=== PATIENT | female | born 1995 | race Caucasian/White ===

== ENCOUNTER 2017-12-04 14:47 | Emergency (ER) | payer SELFPAY ==
[2017-12-04] MEDS ORDERED: NA CHLORIDE 0.9% 1,000 ML ONE (15:28)
[2017-12-04 15:55] LABS: Urine Blood 2+ (NEG); Urine Glucose NEGATIVE (NEG); Urine Protein NEGATIVE (NEG); Urine pH 5.5 (5.0-7.0)
[2017-12-04 16:24] LABS: Absolute Monocytes 0.6 K/uL (0.1-1.3); Absolute Neutrophil 7.5 K/uL (1.8-8.0); Basophils % 0.5 % (0-1.3); Eosinophils % 1.8 % (0-4.4); Hematocrit 40.1 % (36.0-45.0); Lymphocytes % 19.3 % (15.3-44.8); MCH 31.6 pg (27.0-35.0); MPV 9.6 fL (7.6-11.3); Monocytes % 5.7 % (3.3-12.3); RBC Red Blood Cell Count 4.36 M/uL (3.86-4.86)
[2017-12-04 16:32] LABS: Albumin 3.4 g/dL (3.4-5.0); Bilirubin Direct 0.2 mg/dL (0-0.2); Potassium 3.5 mmol/L (3.5-5.1); Protein, Total 7.3 g/dL (6.4-8.2)
[2017-12-04] MEDS ORDERED: MORPHINE 4 MG/ML SYR ONE (17:02)
[2017-12-04 17:03] LABS: Urine Bacteria 20-50 /HPF (<20)
[2017-12-04] MEDS ORDERED: ONDANSETRON 4 MG/2 ML VIAL ONE (17:03)
[2017-12-04 17:04] LABS: Urine Culture Reflex Order NOT NEEDED; Urine Mucus LIGHT /HPF (NONE SEEN)
--- NOTE | 2017-12-04 17:54 | RAD REPORT ---
EXAM DESCRIPTION: CT - Abdomen Pelvis W Contrast - 12/04/2017 5:34 pm CLINICAL HISTORY: Abdominal pain. Nausea, vomiting and diarrhea COMPARISON: 2016 TECHNIQUE: Computed axial tomography of the abdomen and pelvis was obtained. 100 cc Isovue-300 is ad ministered intravenously. Oral contrast was given. All CT scans are performed using dose optimization technique as appropriate and may include automated exposure control or mA/KV adjustment according to patient size. FINDINGS: The liver, spleen, pancreas, adrenals and kidneys appear unremarkable. Postsurgical changes involve the stomach The appendix is normal caliber. There is no evidence of diverticulitis Gallstones are suspected. The gallbladder is mildly distended. The wall of the descending colon and transverse colon is mildly to moderately thickened IMPRESSION: [id number] colitis Cholelithiasis. Mild gallbladder distention
[2017-12-04] MEDS ORDERED: metroNIDAZOLE 500 MG TABLET ONE (18:38)
[2017-12-04] MEDS ORDERED: CIPROFLOXACIN HCL 500 MG TAB ONE (18:38)
--- NOTE | 2017-12-04 18:57 | ER ---
Nurse's Notes [facility] Name: Ximena Zheng Age: 22 yrs Sex: Female : 1995 Arrival Date: 12/04/2017 Time: 14:50 Bed 27 Private MD: Diagnosis: Colitis Presentation: 12/04 14:58 Presenting complaint: Patient states: intermittent lower abd pain, nausea, vomiting x aa5 1, and diarrhea that began this morning. Transition of care: patient was not received from another setting of care. Onset of symptoms was December 04, 2017. Risk Assessment: Do you want to hurt yourself or someone else? Patient reports no desire to harm self or others. Initial Sepsis Screen: Does the patient meet any 2 criteria? No. Patient's initial sepsis screen is negative. Does the patient have a suspected source of infection? No. Patient's initial sepsis screen is negative. Care prior to arrival: None. 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 - Social history:: Smoking status: Patient uses tobacco products, smokes one-half pack cigarettes per day. - Ebola Screening: : No symptoms or risks identified at this time. Screenin:19 Abuse screen: Denies threats or abuse. Denies injuries from another. Nutritional rv screening: No deficits noted. Tuberculosis screening: No symptoms or risk factors identified. Fall Risk None identified. Assessment: 15:17 General: Appears in no apparent distress. comfortable, Behavior is calm, cooperative. rv Pain: Complains of pain in abdomen. Neuro: Level of Consciousness is awake, alert, obeys commands, Oriented to person, place, time, situation. Cardiovascular: Capillary refill < 3 seconds. Respiratory: Airway is patent. GI: Bowel sounds hyperactive in right upper quadrant, left upper quadrant, right lower quadrant and left lower quadrant Abd is soft and non tender X 4 quads. : No signs and/or symptoms were reported regarding the genitourinary system. EENT: No signs and/or symptoms were reported regarding the EENT system. Derm: Skin is intact. 17:10 Reassessment: No changes from previously documented assessment. Patient and/or family rv updated on plan of care and expected duration. Pain level reassessed. Patient is alert, oriented x 3, equal unlabored respirations, skin warm/dry/pink. 18:05 Reassessment: Patient appears in no apparent distress at this time. Patient and/or rv family updated on plan of care and expected duration. Pain level reassessed. Patient is alert, oriented x 3, equal unlabored respirations, skin warm/dry/pink. Vital Signs: 15:01 BP 145 / 95; Pulse 99; Resp 18 S; Temp 98.2(TE); Pulse Ox 96% on R/A; Weight 116.12 kg aa5 (R); Height 5 ft. 5 in. (165.10 cm) (R); Pain 5/10; 15:20 BP 112 / 72; Pulse 98; Pulse Ox 100% on R/A; rv 18:05 BP 109 / 70; Pulse 71; Pulse Ox 99% on R/A; rv 18:56 BP 112 / 79; Pulse 77; Pulse Ox 100% on R/A; rv 15:01 Body Mass Index 42.60 (116.12 kg, 165.10 cm) aa5 ED Course: 14:50 Patient arrived in ED. as 14:59 Triage completed. aa5 14:59 Arm band placed on. aa5 15:05 Darron Mcintosh PA is PHCP. [facility] 15:05 Travis Avendaño MD is Attending Physician. [facility] 15:17 Inserted saline lock: 22 gauge in left antecubital area, using aseptic technique. Blood rv collected. Missed attempt(s): 20 gauge in right antecubital area. 15:20 Patient has correct armband on for positive identification. Bed in low position. Call rv light in reach. Side rails up X 1. Adult w/ patient. Pulse ox on. NIBP on. 15:44 Initial lab(s) drawn, by me, sent to lab. Urine collected: clean catch specimen, clear. rv 17:34 CT Abd/Pelvis - W/Contrast In Process Unspecified. EDMS 17:35 CT completed. Patient tolerated procedure well. Patient moved back from CT. jg6 18:06 Awaiting radiology results. rv 18:56 Ash Navarro MD is Referral Physician. jmm 19:10 No provider procedures requiring assistance completed. IV discontinued, bleeding rv controlled, No redness/swelling at site. Pressure dressing applied. Administered Medications: 17:01 Drug: morphine 4 mg Route: IVP; Site: left antecubital; rv 18:06 Follow up: Response: Pain is decreased rv 17:01 Drug: Zofran 4 mg Route: IVP; Site: left antecubital; rv 18:06 Follow up: Response: No adverse reaction rv 18:34 Drug: Cipro 500 mg Route: PO; rv 18:34 Drug: Flagyl 500 mg Route: PO; rv Outcome: 18:57 Discharge ordered by MD. jmm 19:10 Discharged to home ambulatory. rv 19:10 Condition: improved 19:10 Discharge instructions given to patient, Instructed on discharge instructions, follow up and referral plans. medication usage, Demonstrated understanding of instructions, follow-up care, medications, Prescriptions given X 5 19:11 Patient left the ED. rv Signatures: Dispatcher [employer] EDMS Darron Mcintosh PA PA jmm Martinez, Amelia as Calderon, Audri, RN RN aa5 Bebeto Bui, RN RN Heaven Moss6
--- NOTE | 2017-12-04 18:58 | EDPHYS ---
Physician Documentation [facility] Name: Ximena Zheng Age: 22 yrs Sex: Female : 1995 Arrival Date: 12/04/2017 Time: 14:50 Bed 27 Private MD: ED Physician Travis Avendaño HPI: 12/04 15:32 This 22 yrs old Female presents to ER via Ambulatory with complaints of jmm Abdominal Pain, Diarrhea, Nausea. 15:32 The patient presents with abdominal pain in the lower abdomen. Onset: The jmm symptoms/episode began/occurred gradually, 2 day(s) ago. The symptoms do not radiate. Associated signs and symptoms: Pertinent positives: nausea and vomiting, diarrhea. The symptoms are described as achy. This is a 22 year old female with a surgical history of gastric sleeve 2 years prior that presents to the ED with lower abdominal pain, diarrhea beginning evening. States having one episode of vomiting today. Denies epigastric pain. . 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 - Social history:: Smoking status: Patient uses tobacco products, smokes one-half pack cigarettes per day. - Ebola Screening: : No symptoms or risks identified at this time. ROS: 15:32 Constitutional: Negative for fever, chills, and weight loss, Cardiovascular: Negative jmm for chest pain, palpitations, and edema, Respiratory: Negative for shortness of breath, cough, wheezing, and pleuritic chest pain. 15:32 Back: Negative for injury and pain, MS/Extremity: Negative for injury and deformity, Skin: Negative for injury, rash, and discoloration, Neuro: Negative for headache, weakness, numbness, tingling, and seizure. 15:32 Abdomen/GI: Positive for abdominal pain, nausea and vomiting, diarrhea. 15:32 All other systems are negative. Exam: 15:32 Head/Face: atraumatic. Chest/axilla: Normal chest wall appearance and motion. jmm Cardiovascular: Regular rate and rhythm. No edema appreciated Respiratory: Normal respirations, no respiratory distress appreciated 15:32 Constitutional: The patient appears in no acute distress, alert, awake. 15:32 Abdomen/GI: Inspection: obese Bowel sounds: normal, Palpation: soft, mild abdominal tenderness, in the right lower quadrant and left lower quadrant. 15:32 Back: ROM is normal. 15:32 Musculoskeletal/extremity: ROM: intact in all extremities. 15:32 Skin: Appearance: Color: normal in color. 15:32 Neuro: Orientation: is normal, Mentation: is normal, Memory: is normal. Vital Signs: 15:01 BP 145 / 95; Pulse 99; Resp 18 S; Temp 98.2(TE); Pulse Ox 96% on R/A; Weight 116.12 kg aa5 (R); Height 5 ft. 5 in. (165.10 cm) (R); Pain 5/10; 15:20 BP 112 / 72; Pulse 98; Pulse Ox 100% on R/A; rv 18:05 BP 109 / 70; Pulse 71; Pulse Ox 99% on R/A; rv 18:56 BP 112 / 79; Pulse 77; Pulse Ox 100% on R/A; rv 15:01 Body Mass Index 42.60 (116.12 kg, 165.10 cm) aa5 MDM: 15:32 Patient medically screened. [facility] 18:56 Data reviewed: vital signs, nurses notes. Counseling: I had a detailed discussion with robyn the patient and/or guardian regarding: the historical points, exam findings, and any diagnostic results supporting the discharge/admit diagnosis, the need for outpatient follow up, to return to the emergency department if symptoms worsen or persist or if there are any questions or concerns that arise at home. 18:56 Data reviewed: lab test result(s), radiologic studies. [facility] 18:56 ED course: Patient is alert and non toxic in appearance in the ED. Abdominal pain [facility] relieved in the ED. patient is able to tolerate PO. Symptoms appear most likely due to colitis. Patient has no epigastric pain. I do not currently suspect cholecystitis. Patient prescribed oral antibiotics along with the need to follow up with GI for further evaluation. Patient given strict return precautions. Patient understood and agrees with the plan of care. . 12/04 15:34 Order name: Basic Metabolic Panel; Complete Time: 16:45 [facility] 12/04 15:34 Order name: CBC with Diff; Complete Time: 16:45 [facility] 12/04 15:34 Order name: Creatinine for Radiology; Complete Time: 16:45 [facility] 12/04 15:34 Order name: Hepatic Function; Complete Time: 16:45 [facility] 12/04 15:34 Order name: Lipase; Complete Time: 16:45 [facility] 12/04 15:40 Order name: Urine Microscopic Only; Complete Time: 17:08 12/04 15:34 Order name: IV Saline Lock; Complete Time: 15:44 [facility] 12/04 15:35 Order name: CT Abd/Pelvis - W/Contrast; Complete Time: 17:59 [facility] 12/04 15:43 Order name: Urine Dipstick--Ancillary (enter results); Complete Time: 16:45 12/04 15:43 Order name: Urine --Ancillary (enter results); Complete Time: 16:45 12/04 15:34 Order name: Labs collected and sent; Complete Time: 15:44 [facility] 12/04 15:34 Order name: Urine Test (obtain specimen); Complete Time: 15:44 [facility] 12/04 15:34 Order name: Urine Dipstick-Ancillary (obtain specimen); Complete Time: 15:44 [facility] Administered Medications: 17:01 Drug: morphine 4 mg Route: IVP; Site: left antecubital; rv 18:06 Follow up: Response: Pain is decreased rv 17:01 Drug: Zofran 4 mg Route: IVP; Site: left antecubital; rv 18:06 Follow up: Response: No adverse reaction rv 18:34 Drug: Cipro 500 mg Route: PO; rv 18:34 Drug: Flagyl 500 mg Route: PO; rv Disposition: 12/04/17 18:57 Discharged to Home. Impression: Colitis. - Condition is Stable. - Discharge Instructions: Colitis. - Prescriptions for Zofran ODT 4 mg Oral tablet,disintegrating - place 1 tablet by TRANSLINGUAL route every 4-6 hours; 20 tablet. Bentyl 20 mg Oral Tablet - take 2 tablet by ORAL route every 6 hours As needed; 40 tablet. Flagyl 500 mg Oral Tablet - take 1 tablet by ORAL route every 8 hours for 10 days; 30 tablet. Tylenol- Codeine #3 300-30 mg Oral Tablet - take 1 tablet by ORAL route every 6 hours As needed; 20 tablet. Cipro 500 mg Oral Tablet - take 1 tablet by ORAL route every 12 hours for 10 days; 20 tablet. - Medication Reconciliation Form, Thank You Letter, Antibiotic Education, Prescription Opioid Use, Work release form form. - Follow up: Ash Navarro MD; When: 2 - 3 days; Reason: Recheck today's complaints, Continuance of care, Re-evaluation by your physician. Addendum: 12/07/2017 20:39 Co-signature as Attending Physician, Travis Avendaño MD. r n Signatures: Dispatcher [employer] EDMS Darron Mcintosh PA PA jmm Nieto, Roman, MD MD rn Adelia Ramos RN RN aa5 Bebeto Bui RN RN rv Corrections: (The following items were deleted from the chart) 12/04 19:11 18:57 12/04/2017 18:57 Discharged to Home. Impression: Colitis. Condition is Stable. rv Forms are Medication Reconciliation Form, Thank You Letter, Antibiotic Education, Prescription Opioid Use. Follow up: Ash Navarro; When: 2 - 3 days; Reason: Recheck today's complaints, Continuance of care, Re-evaluation by your physician. [facility]
[2017-12-04 19:15] VITALS: TEMP 98.2
[2017-12-04 19:18] VITALS: BP 112/79; O2SAT 100
== END 2017-12-04 19:11 | disposition home or self-care (01) ==
LOC: ER 14:47
DX: K52.9 Noninfective gastroenteritis and colitis, unspecified (principal); F17.210 Nicotine dependence, cigarettes, uncomplicated
CPT/HCPCS: 36415; 74177; 80048; 80076; 81003; 81015; 81025; 83690; 85025; 96374; 96375; 99284; J2405; J7030; Q9967

== ENCOUNTER 2020-08-07 10:53 | Emergency (ER) | payer OTHER, SELFPAY ==
--- OUTSIDE RECORDS SUMMARY | 2020-08-07 10:56 | XMS REPORT | Continuity of Care Document ---
:1995 Author Organization [facility] t Address [address] [place] [address] Care Team Providers Name Role Phone Johann FLANNERY Attending Clinician Mariah Mitchell Attending Clinician Problems This patient has no known problems. Allergies, Adverse Reactions, Alerts This patient has no known allergies or adverse reactions. Medications This patient has no known medications. Procedures This patient has no known procedures. 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
[2020-08-07] MEDS ORDERED: dexAMETHasone 10 MG/ML VIAL ONE (12:03)
[2020-08-07] MEDS ORDERED: LEVALBUTEROL 1.25 MG/3 ML NEB ONE (12:03)
--- NOTE | 2020-08-07 12:29 | RAD REPORT ---
EXAM DESCRIPTION: RAD - Chest Single View - 08/07/2020 12:05 pm CLINICAL HISTORY: SOB COMPARISON: Portable July 2016 TECHNIQUE: AP portable chest image was obtained 08/07/2020 12:05 pm . FINDINGS: Exam is limited due to low lung volumes. No peripheral mass or consolidations seen. Large body habitus accentuates all chest findings. Cardiac silhouette is prominent due to the exam limitations. Upper lobe vasculature within normal li mits. Significant failure or volume overload are not suspected. No measurable pleural effusion and no pneumothorax. No acute bony abnormality seen. No acute aortic findings suspected. IMPRESSION: Exam is limited but no acute cardiopulmonary process confirmed.
--- NOTE | 2020-08-07 13:31 | ER ---
Nurse's Notes [facility] Name: Ximena Zheng Age: 24 yrs Sex: Female : 1995 Arrival Date: 08/07/2020 Time: 10:58 Bed 20 Private MD: Diagnosis: Acute pharyngitis;Acute upper respiratory infection, unspecified Presentation: 08/07 11:03 Chief complaint: Patient states: Nasal congestion, chest congestion, cough and SOB jl7 since . Went to [facility] on Wednesday and negative for COVID and strep, gave my a steroid shot and pain shot and a prescription for a cough pill but I'm not any better. Had a gastric bypass done in [place] 6 weeks ago. Coronavirus screen: Client indicates they have traveled out of the [place] in the last 14 days. Client traveled to: [place] Ebola Screen: No symptoms or risks identified at this time. Initial Sepsis Screen: Does the patient meet any 2 criteria? No. Patient's initial sepsis screen is negative. Does the patient have a suspected source of infection? No. Patient's initial sepsis screen is negative. Risk Assessment: Do you want to hurt yourself or someone else? Patient reports no desire to harm self or others. Onset of symptoms was August 01, 2020. 11:03 Method Of Arrival: Ambulatory jl7 11:03 Acuity: PEDRO 4 jl7 Triage Assessment: 11:08 General: Appears in no apparent distress. uncomfortable, Behavior is calm, cooperative. jl7 Pain: Complains of pain in [place] Pain currently is 8 out of 10 on a pain scale. Respiratory: Reports shortness of breath cough that is Onset: The symptoms/episode began/occurred gradually, the patient has mild shortness of breath. 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 - Social history:: Smoking status: Reported history of juuling and/or vaping. Screenin:08 Abuse screen: Denies threats or abuse. Nutritional screening: No deficits noted. jd3 Tuberculosis screening: No symptoms or risk factors identified. Fall Risk Ambulatory Aid- None/Bed Rest/Nurse Assist (0 pts). Gait- Normal/Bed Rest/Wheelchair (0 pts) Mental Status- Oriented to own ability (0 pts). Total Espinoza Fall Scale indicates No Risk (0-24 pts). Assessment: 12:07 General: Appears in no apparent distress. comfortable, Behavior is calm, cooperative, jd3 appropriate for age. Pain: Complains of pain in throat Quality of pain is described as aching. Neuro: Level of Consciousness is awake, alert, obeys commands, Oriented to person, place, time, situation. Cardiovascular: Denies chest pain, Capillary refill < 3 seconds Patient's skin is warm and dry. Respiratory: Reports cough that is non-productive, hacking, persistent Airway is patent Respiratory effort is even, unlabored, Respiratory pattern is regular, symmetrical. GI: No signs and/or symptoms were reported involving the gastrointestinal system. : No signs and/or symptoms were reported regarding the genitourinary system. EENT: Reports nasal congestion. Derm: Skin is intact, Skin is dry, Skin is normal, Skin temperature is warm. Musculoskeletal: Circulation, motion, and sensation intact. Range of motion: intact in all extremities. 12:47 Reassessment: Patient appears in no apparent distress at this time. Patient and/or jd3 family updated on plan of care and expected duration. Pain level reassessed. Patient is alert, oriented x 3, equal unlabored respirations, skin warm/dry/pink. Vital Signs: 11:03 BP 148 / 103; Pulse 74; Resp 19; Temp 98.2(O); Pulse Ox 99% on R/A; Weight 150.14 kg; jl7 Height 5 ft. 5 in. (165.10 cm); Pain 8/10; 13:45 Pulse 73; Resp 18 S; Temp 97.3(TE); Pulse Ox 99% on R/A; jd3 11:03 Body Mass Index 55.08 (150.14 kg, 165.10 cm) 7 ED Course: 10:58 Patient arrived in ED. mr 11:01 Darron Mcintosh PA is PHCP. [facility] 11:01 Travis Avendaño MD is Attending Physician. [facility] 11:07 Triage completed. [facility] 11:08 Arm band placed on right wrist. 7 11:12 Benjamin Hampton, RN is Primary Nurse. jd3 12:04 Chest Single View XRAY In Process Unspecified. EDMS 12:08 Patient has correct armband on for positive identification. Bed in low position. Call jd3 light in reach. Side rails up X 1. Adult w/ patient. Pulse ox on. NIBP on. 13:45 No provider procedures requiring assistance completed. Patient did not have IV access jd3 during this emergency room visit. Administered Medications: 12:06 Drug: Decadron (dexamethasone) 10 mg Route: IM; Site: left deltoid; jd3 13:00 Follow up: Response: No adverse reaction jd3 12:07 Drug: Xopenex (levalbuterol) (3) 1.25 mg Route: Inhalation; jd3 13:00 Follow up: Response: No adverse reaction jd3 Outcome: 13:30 Discharge ordered by . robyn 13:45 Discharged to home ambulatory, with family. jd3 13:45 Condition: stable 13:45 Discharge instructions given to patient, Instructed on discharge instructions, follow up and referral plans. medication usage, Demonstrated understanding of instructions, follow-up care, medications, Prescriptions given X 3. 13:47 Patient left the ED. jd3 Signatures: Dispatcher [employer] EDMS Darron Mcintosh PA PA jmm Rivera, Mary SmithSaira, RN RN jl7 Benjamin Hampton, RN RN jd3
--- NOTE | 2020-08-07 13:31 | EDPHYS ---
Physician Documentation [facility] Name: Ximena Zheng Age: 24 yrs Sex: Female : 1995 Arrival Date: 08/07/2020 Time: 10:58 Bed 20 Private MD: ED Physician Travis Avendaño HPI: 08/07 13:24 This 24 yrs old Female presents to ER via Ambulatory with complaints of jmm Breathing Difficulty, Cough. 13:24 The patient has shortness of breath at rest. Onset: The symptoms/episode began/occurred jmm gradually, 6 day(s) ago. Duration: The symptoms are continuous, and are steadily getting worse. The patient's shortness of breath has no apparent modifying factors. This is a 24 year old female with a history of gestational htn that presents to the ED with complaints of sore throat, cough, shortness of breath beginning this past . Patient was evaluated this past Wednesday with little relief of symptoms. . [employer] REPA[employer]ER: 11:08 LMP 07/30/2020 jl7 Historical: - Allergies: 11:08 No Known Allergies; jl7 - Home Meds: 11:08 None [Active]; jl7 - PMHx: 11:08 gestational hypertension; jl7 - PSHx: 11:08 Gastric Bypass; jl7 - Immunization history:: Adult Immunizations unknown. - Social history:: Smoking status: Reported history of juuling and/or vaping. ROS: 13:24 Cardiovascular: Negative for chest pain, palpitations, and edema. jmm 13:24 Constitutional: Positive for chills. 13:24 Respiratory: Positive for cough, shortness of breath. 13:24 All other systems are negative. Exam: 13:24 Constitutional: This is a well developed, well nourished patient who is awake, alert, jmm and in no acute distress. Head/Face: atraumatic. Eyes: EOMI, no conjunctival erythema appreciated 13:24 ENT: Moist Mucus Membranes Neck: Trachea midline, Supple Chest/axilla: Normal chest wall appearance and motion. Cardiovascular: Regular rate and rhythm. No edema appreciated Respiratory: Normal respirations, no respiratory distress appreciated Abdomen/GI: Non distended, soft Back: Normal ROM Skin: General appearance color normal MS/ Extremity: Moves all extremities, no obvious deformities appreciated, no edema noted to the lower extremities Neuro: Awake and alert, normal gait Psych: Behavior is normal, Mood is normal, Patient is cooperative and pleasant 13:24 ENT: Posterior pharynx: erythema, that is moderate. Vital Signs: 11:03 BP 148 / 103; Pulse 74; Resp 19; Temp 98.2(O); Pulse Ox 99% on R/A; Weight 150.14 kg; jl7 Height 5 ft. 5 in. (165.10 cm); Pain 8/10; 13:45 Pulse 73; Resp 18 S; Temp 97.3(TE); Pulse Ox 99% on R/A; jd3 11:03 Body Mass Index 55.08 (150.14 kg, 165.10 cm) jl7 MDM: 11:33 Patient medically screened. [facility] 13:28 Data reviewed: vital signs, nurses notes. Counseling: I had a detailed discussion with robyn the patient and/or guardian regarding: the historical points, exam findings, and any diagnostic results supporting the discharge/admit diagnosis, lab results, radiology results, the need for outpatient follow up, to return to the emergency department if symptoms worsen or persist or if there are any questions or concerns that arise at home. ED course: Patient is alert and non toxic in appearance in the ED. No signs of resp distress. Advised to follow up with pcp and otherwise given strict return precautions. patient understood and agrees with the plan of care. . 08/07 11:35 Order name: Strep; Complete Time: 12:38 [facility] 08/07 11:35 Order name: Chest Single View XRAY; Complete Time: 12:32 [facility] 08/07 12:37 Order name: Throat Culture [facility] 08/07 13:16 Order name: SARS-COV-2 RT PCR; Complete Time: 13:16 EDTX Administered Medications: 12:06 Drug: Decadron (dexamethasone) 10 mg Route: IM; Site: left deltoid; jd3 13:00 Follow up: Response: No adverse reaction jd3 12:07 Drug: Xopenex (levalbuterol) (3) 1.25 mg Route: Inhalation; jd3 13:00 Follow up: Response: No adverse reaction jd3 Disposition: 13:52 Co-signature as Attending Physician, Travis Avendaño MD. rn Disposition: 08/07/20 13:30 Discharged to Home. Impression: Acute pharyngitis, Acute upper respiratory infection, unspecified. - Condition is Stable. - Discharge Instructions: Pharyngitis, Upper Respiratory Infection, Adult. - Prescriptions for cefdinir 300 mg Oral capsule - take 1 capsule by ORAL route every 12 hours for 10 days; 20 capsule. Albuterol Sulfate 90 mcg/actuation - inhale 1-2 puff by INHALATION route every 4-6 hours; 1 Inhaler. promethazine- DM - take 1 Teaspoon by ORAL route every 4 hours; 120 milliliter. - Medication Reconciliation Form, Thank You Letter, Antibiotic Education, Prescription Opioid Use, Work release form form. - Follow up: Private Physician; When: 2 - 3 days; Reason: Recheck today's complaints, Continuance of care, Re-evaluation by your physician. Signatures: Dispatcher [employer] [facility] Darron Mcintosh PA PA jmm Nieto, Roman, MD MD rn Leal, Jahala, RN RN jl7 Benjamin Hampton RN RN jd3 Corrections: (The following items were deleted from the chart) 12:16 11:37 CORONAVIRUS+[id number].BRZ ordered. [facility] 13:47 13:30 08/07/2020 13:30 Discharged to Home. Impression: Acute pharyngitis; Acute upper jd3 respiratory infection, unspecified. Condition is Stable. Forms are Medication Reconciliation Form, Thank You Letter, Antibiotic Education, Prescription Opioid Use. Follow up: Private Physician; When: 2 - 3 days; Reason: Recheck today's complaints, Continuance of care, Re-evaluation by your physician. robyn
[2020-08-07 13:55] VITALS: BP 148/103; O2SAT 99
[2020-08-07 14:01] VITALS: TEMP 97.3
== END 2020-08-07 13:47 | disposition home or self-care (01) ==
LOC: ER 10:53
DX: J06.9 Acute upper respiratory infection, unspecified (principal); Z20.822 Contact with and (suspected) exposure to COVID-19; Z98.84 Bariatric surgery status
CPT/HCPCS: 87070; 87081; 71045; U0003; J1100; 96372; 99284

== ENCOUNTER 2022-02-19 09:16 | Emergency (ER) | payer OTHER ==
--- OUTSIDE RECORDS SUMMARY | 2022-02-19 09:22 | XMS REPORT | Continuity of Care Document ---
:1995 Author Organization [facility] t Address [address] [place] [address] Care Team Providers Name Role Phone PCP, PATIENT DOES NOT HAVE A Primary Care Physician UnavailANNETTA Eaton Attending Clinician Unavailable Rebecca Curiel MD Attending Clinician REBECCA CURIEL Attending Clinician Unavailable George Monreal MD Attending Clinician GEORGE MONREAL Attending Clinician Unavailable Only, Adc Test Attending Clinician Unavailable Pob, Adc Lab Main Attending Clinician Unavailable MELQUIADES CHAUDHRY Attending Clinician Unavailable MELQUIADES CHAUDHRY Attending Clinician Unavailable Doctor Unassigned, [place] Attending Clinician Unavailable Ultrasound, Ang-Mfm Attending Clinician Unavailable Mark Anthony Padron MD Attending Clinician [phone] MARK ANTHONY PADRON Attending Clinician Unavailable Ultrasound, Adc Mfm Attending Clinician Unavailable Evin Woods DO Attending Clinician Pcp, Patient Does Not Have A Attending Clinician [phone] Poornima LEIGH Attending Clinician Unavailable Poornima Crabtree Attending Clinician ELSY GARCIA Attending Clinician Unavailable Elsy Garcia DO Attending Clinician LYNN SULTANA Attending Clinician Unavailable Janet Madrigal Attending Clinician AkinEsther Sweet Attending Clinician [phone] ISIDRA RASMUSSEN Attending Clinician Unavailable TRACEY ZUÑIGA Attending Clinician Unavailable GEORGE MONREAL Admitting Clinician Unavailable George Monreal MD Admitting Clinician REBECCA CURIEL Admitting Clinician Unavailable ELSY GARCIA Admitting Clinician Unavailable Payers Payer Name Policy Type Policy Number Effective Date Expiration Date Sanjuana NEVES II [id number] 2020 00:00:00 [place]ICAID OF [place] [id number] 2021 00:00:00 [facility] [id number] 2021 2021 00:00:00 00:00:00 Problems Condition Condition Condition Status Onset Resolution Last Treating Co mments Source Name Details Category Date Date Treatment Clinician Date Liveborn Liveborn Disease Active Unive rs , of infant, of 7-13 it y of mann [place] , , 00 [place] dical born in born in [facility] by vaginal by vaginal delivery delivery 38 weeks 38 weeks Disease Active Unive rs gestation gestation 7-11 ity of of of 00:00: [place] 00 [facility] Supervisio Supervisio Disease Active 2020-03 U darrell n of high n of high 2-02 ity of risk risk 00:00: [place] 00 [facility] in third in third Branch trimester trimester Chronic Chronic Disease Active 2020-03 Univers hypertensi hypertensi 2-02 it y of on on 00:00: [place] affecting affecting 00 [facility] Bran ch Bariatric Bariatric Disease Active 2020-03 Uni vers surgery surgery 2-02 ity of status status 00:00: [place] complicati complicati 00 Me dical ng ng Lydia , , third third trimester trimester Obesity in Obesity in Disease Active 2020-03 U nivers 2-02 ity of 00:00: [place] 00 Medical Branch Trichomona Trichomona Disease Active Overview : Univers l l 3-21 Formattin ity of vulvovagin vulvovagin 00:00: g of this [place] itis itis 00 note Medical might be Branch different from the original. Noted on pap Morbid Morbid Disease Active Univers obesity obesity 6-24 ity of with body with body 00:00: [place] mass index mass index 00 Me dical (BMI) of (BMI) of Branch 40.0 or 40.0 or higher higher Hypertensi Hypertensi Disease Active Overview : Univers on on Formattin ity of g of this [place] note Medical might be Branch different from the original. during and after gastric sleeve surgery Allergies, Adverse Reactions, Alerts Allergy Allergy Status Severity Reaction(s) Onset Inactive Treating Comm ents Source Name Type Date Date Clinician NO KNOWN Drug Active Univers ALLERGIE Class ity of [facility] Social History Social Habit Start Date Stop Date Quantity Comments Source ASSERTION 2020-12-26 University of 00:00:00 [facility] Branch History of 2015-05-13 Cigarette Smoker Universi ty of tobacco use 00:00:00 [place] [facility] History SDAL University o f Alcohol Frequency [place] M edical [facility] History [facility] University o f Alcohol Std [place] Medical Drinks Branch History [facility] o f Alcohol Binge [place] Medic al Branch Exposure to 2021-10-19 2021-10-29 Not sure [facility] SARS-CoV-2 00:00:00 15:54:00 [facility] (event) Branch Tobacco use and 2021-10-29 2021-10-29 Smokeless tobacco Un iversity of exposure 00:00:00 00:00:[address] [facility] Alcohol intake 2021-10-29 2021-10-29 Ex-drinker University of 00:00:00 00:00:00 (finding) [facility] Tobacco Comment 2021-10-29 2021-10-29 smokes 6 x per Unive rsity of 00:00:00 00:00:00 day [facility] Branch Education 2021-09-09 2021-09-09 13 University of 00:00:00 00:00:00 [facility] Alcohol Comment 2015-08-22 2015-08-22 socially Universit y of 00:00:00 00:00:00 [facility] Sex Assigned At [birth year] Universit y of 00:00:00 00:00:00 [facility] Smoking Status Start Date Stop Date Source Ex-smoker 2021-10-29 00:00:00 2021-10-29 00:00:00 [facility] Medical Branch Medications Ordered Filled Start Stop Current Ordering Indication Dosage Frequency Signature Comments Components Source Medication Medication Date Date Medication? Clinician (SIG) Name Name amLODIPine Yes [id number] 5mg Take 1 U nivers 5 mg tablet 8-03 tablet by ity of 00:00: mouth in [place] the Medical morning. Branch amLODIPine Yes [id number] 5mg Take 1 U nivers 5 mg tablet 8-03 tablet by ity of 00:00: mouth in [place] the Medical morning. Branch amLODIPine Yes [id number] 5mg Take 1 U nivers 5 mg tablet 8-03 tablet by ity of 00:00: mouth in [place] the Medical morning. Branch ferrous 2021- No Take by Simmrer s sulfate 09-10 mouth. ity of (IRON ORAL) 08:10: 00:00 [place] 58 :00 Medical Branch CALCIUM 2021- No Take by Simmrer s ORAL 09-10 mouth. ity of 08:10: 00:00 [place] 58 :00 Medical Branch aspirin 81 2021- No 81mg Take 81 mg Univers mg EC 09-10 by mouth ity of tablet 08:10: 00:00 daily. [place] 58 :00 Medical Branch Yes [id number] 1{tbl} Take 1 Univers vitamin 7-13 102 tablet by ity of w/FA tablet 00:00: mouth in [facility] the Medical morning. Branch docusate Yes [id number] 200mg Take 2 Univers 100 mg - 102 capsules ity of capsule 00:00: by mouth [place] [id number] once daily Medical as needed Branch for Constipati on. ferrous Yes [id number] 325mg Take 1 Univers sulfate 325 7- 102 tablet by ity of mg (65 mg 00:00: mouth in [facility] s iron) 00 the Medical tablet morning Branch and 1 tablet in the evening. ibuprofen Yes [id number] 600mg Take 1 Univers 600 mg 7-13 102 tablet by ity of tablet 00:00: mouth [place] 00 every 6 Medical (six) Branch hours as needed (Pain). Take with food or milk. 0 Yes [id number] 1{tbl} Take 1 Univers vitamin 7-13 102 tablet by ity of w/FA tablet 00:00: mouth in [place] 00 the Medical morning. Branch docusate Yes [id number] 200mg Take 2 Univers 100 mg 7-13 102 capsules ity of capsule 00:00: by mouth [place] 00 once daily Medical as needed Branch for Constipati on. ferrous Yes [id number] 325mg Take 1 Univers sulfate 325 7-13 102 tablet by ity of mg (65 mg 00:00: [place] iron[place] 00 the Medical tablet morning Branch and 1 tablet in the evening. ibuprofen Yes [id number] 600mg Take 1 Univers 600 mg 7-13 102 tablet by ity of tablet 00:00: mouth [place] 00 every 6 Medical (six) Branch hours as needed (Pain). Take with food or milk. Yes [id number] 1{tbl} Take 1 Univers vitamin 7-13 102 tablet by ity of w/FA tablet 00:00: mouth in [place] 00 the Medical morning. Branch docusate Yes [id number] 200mg Take 2 Univers 100 mg 7-13 102 capsules ity of capsule 00:00: by mouth [place] 00 once daily Medical as needed Branch for Constipati on. ferrous 0 Yes [id number] 325mg Take 1 Univers sulfate 325 7-13 102 tablet by ity of mg (65 mg 00:00: [place] iron[place] 00 the Medical tablet morning Branch and 1 tablet in the evening. ibuprofen 0 Yes [id number] 600mg Take 1 Univers 600 mg 7-13 102 tablet by ity of tablet 00:00: mouth [place] 00 every 6 Medical (six) Branch hours as needed (Pain). Take with food or milk. 0 Yes [id number] 1{tbl} Take 1 Univers vitamin 7-13 102 tablet by ity of w/FA tablet 00:00: mouth in [place] 00 the Medical morning. Branch docusate Yes [id number] 200mg Take 2 Univers 100 mg 7-13 102 capsules ity of capsule 00:00: by mouth [place] 00 once daily Medical as needed Branch for Constipati on. ferrous Yes [id number] 325mg Take 1 Univers sulfate 325 7- 102 tablet by ity of mg (65 mg 00:00: [place] iron[place] 00 the Medical tablet morning Branch and 1 tablet in the evening. ibuprofen Yes [id number] 600mg Take 1 Univers 600 mg 7- 102 tablet by ity of tablet 00:00: mouth [place] 00 every 6 Medical (six) Branch hours as needed (Pain). Take with food or milk. Yes [id number] 1{tbl} Take 1 Univers vitamin 7-13 102 tablet by ity of w/FA tablet 00:00: mouth in [place] 00 the Medical morning. Branch ferrous Yes [id number] 325mg Take 1 Univers sulfate 325 7-13 102 tablet by ity of mg (65 mg 00:00: [place] iron[place] 00 the Medical tablet morning Branch and 1 tablet in the evening. docusate 2021- No [id number] 200mg Take 2 Univers 100 mg 09-10 102 capsules ity of capsule 00:00: 00:00 by mouth [place] 00 :00 once daily Medical as needed Branch for Constipati on. ibuprofen 2021- No [id number] 600mg Take 1 Univers 600 mg 09-10 102 tablet by ity of tablet 00:00: 00:00 mouth [place] 00 :00 every 6 Medical (six) Branch hours as needed (Pain). Take with food or milk. rho(D) Yes 300ug 300 mcg, Univer s immune 7-12 Intramuscu ity of globulin 18:00: lar, ONCE, [place] as (RHOGAM) 47 For 1 Medical syringe 300 dose, Branch mcg Conditiona l, Routine witch [place] Yes Topical, Un eddi (TUCKS) 50 7-12 Q4HPRN, ity of % topical 18:00: [place] pad 39 on Tue Medical 09/09/21 at Branch 1300, Until Discontinu ed, Routine, rectal/hem orrhoidal pain HYDROcodone Yes 1{tbl} 1 tablet, Univers -acetaminop 7-12 Oral, ity of hen (NORCO 18:00: Q6HPRN, [place] 5) 5-325 mg 39 Starting Medi delma tablet 1 on Wed tablet 09/09/21 at 1300, Until Discontinu ed, Routine, Pain (scale 7-10) ibuprofen 2022-0 Yes 600mg 600 mg, Univ ers (IBU) 09-09 Oral, ity of tablet 600 18:00: Q6HPRN, [place] mg 39 Starting Medical on Wed09/09/21 at 1300, Until Discontinu ed, Routine, Pain (scale 4-6) acetaminoph 2022-0 Yes 650mg 650 mg, Un eddi en 09-09 Oral, ity of (TYLENOL) 18:00: Q6HPRN, [place] tablet 650 39 Starting Medic al mg on Wed09/09/21 at 1300, Until Discontinu ed, Routine, Pain (scale 1-3) diphenhydrA 2021-0 Yes 25mg 25 mg, Univ ers MINE 09-09 Oral, ity of (BENADRYL) 18:00: [facility] Starting Medica l mg on Wed09/09/21 at 1300, Until Discontinu ed, Routine, Sleep, Itching ondansetron 2021-0 Yes 4mg 4 mg, Slow Univers (ZOFRAN 09-09 IV Push, ity of (PF)) 18:00: Q8HPRN, [place] injection 4 39 Starting Medi delma mg on Wed09/09/21 at 1300, Until Discontinu ed, Routine, Nausea and Vomiting (N/V) simethicone 202-0 Yes 160mg 160 mg, Un eddi (GAS RELIEF 09-09 Oral, ity of (SIMETHICON 18:00: PC+HSPRN, [place] E)) 39 Starting Medical chewable on Wed tablet 160 09/09/21 at mg 1300, Until Discontinu ed, Routine, Gas docusate 202-0 Yes 200mg 200 mg, Unive rs (COLACE) 09-09 Oral, ity of capsule 200 18:00: QDAILYPRN, [place] mg 39 Starting Medical on Wed09/09/21 at 1300, Until Discontinu ed, Routine, Constipati on magnesium 2021-0 Yes 30mL 30 mL, Univer s hydroxide 09-09 Oral, ity of (MILK OF 18:00: QDAILYPRN, [place] MAGNESIA) 39 Starting Medica l 400 mg/5 mL on Wed Branch suspension 09/09/21 at 30 mL 1300, Until Discontinu ed, Routine, Constipati on benzocaine- Yes Topical, Un eddi menthol 09-09 PRN, ity of (DERMOPLAST 18:00: [place] 20-0.5 % 39 on Wed Medical topical 09/09/21 at Branch spray 1300, Until Discontinu ed, Routine, Perineum discomfort butalbital- 2021- No 1{tbl} 1 tablet, Univers acetaminoph 09-09 Oral, ity of en-caff 11:54: 18:00 Q4HPRN, [place] (ESGIC) 01 :45 Starting Medical 50-325-40 on Wed mg tablet 1 09/09/21 at tablet 0654, Until Wed09/09/21 at 1300, Routine, headache D5W-LR IV 2021- No 1000mL at 125 Uni vers infusion 09-09 mL/hr, IV ity o f 1,000 mL 09:45: 18:00 Infusion, [place] 00 :45 CONTINUOUS Medical , Starting Branch on Wed09/09/21 at 0445, Until Wed09/09/21 at 1300, Routine lactated 2021- No 500mL at 999 Unive rs ringers IV 09-09 mL/hr, 500 it y of infusion 09:45: 15:47 mL, IV [place] 500 mL 00 :00 Infusion, Medical ONCE, 1 Branch dose, On Wed09/09/21 at 0445, Routine FENTanyl PF 2021- No 100ug 100 mcg, Univers (SUBLIMAZE 09-09 Slow IV ity o f (PF)) 09:31: 18:00 Push, [place] injection 43 :45 Q1HPRN, Medical 100 mcg Starting Branch on Wed09/09/21 at 0431, Until Wed09/09/21 at 1300, Routine, contractio n pain without an epidural and SVE < 8 cm and Cat I strip proMETHazin 2021- No 25mg 25 mg, IV Univers e 09-0912 Piggyback, ity of (PHENERGAN) 09:31: 18:00 Q4HPRN, [place] 25 mg in 43 :45 Starting Medical NaCl 0.9% on Wed Branch (NS) 50 mL 09/09/21 at IV 0431, piggyback Until Wed09/09/21 at 1300, Routine, Nausea and Vomiting (N/V) oxytocin 2021- No 2mU/min at 2-40 Un eddi (PITOCIN) 09-0912 mL/hr, IV ity of 30 units in 09:31: 18:00 Infusion, [place] NS 500 mL 43 :45 TITRATE, Medica l IV infusion Starting Bran ch on Wed09/09/21 at 0431, Until Wed09/09/21 at 1300, FABIO ferrous 0 Yes Take by Univers sulfate 5-24 mouth. ity of (IRON ORAL) 16:08: [address] CALCIUM 2021-0 Yes Take by Univers ORAL 5-24 mouth. ity of 16:08: [address] aspirin 81 2021-0 Yes 81mg Take 81 mg U nivers mg EC 5-24 by mouth ity of tablet 16:08: daily. [address] ferrous 2021-0 Yes Take by Univers sulfate 5-24 mouth. ity of (IRON ORAL) 16:08: [address] CALCIUM 2021-0 Yes Take by Univers ORAL 5-24 mouth. ity of 16:08: [address] aspirin 81 2021-0 Yes 81mg Take 81 mg U nivers mg EC 5-24 by mouth ity of tablet 16:08: daily. [address] ferrous 2021-0 Yes Take by Univers sulfate 5-24 mouth. ity of (IRON ORAL) 16:08: [address] CALCIUM 2021-0 Yes Take by Univers ORAL 5-24 mouth. ity of 16:08: [address] aspirin 81 2021-0 Yes 81mg Take 81 mg U nivers mg EC 5-24 by mouth ity of tablet 16:08: daily. [address] ferrous 2021-0 Yes Take by Univers sulfate 5-24 mouth. ity of (IRON ORAL) 16:08: [address] CALCIUM 2021-0 Yes Take by Univers ORAL 5-24 mouth. ity of 16:08: [address] aspirin 81 2021-0 Yes 81mg Take 81 mg U nivers mg EC 5-24 by mouth ity of tablet 16:08: daily. [address] ferrous 2021-0 Yes Take by Univers sulfate 5-24 mouth. ity of (IRON ORAL) 16:08: [address] CALCIUM 2021-0 Yes Take by Univers ORAL 5-24 mouth. ity of 16:08: [address] aspirin 81 2021-0 Yes 81mg Take 81 mg U nivers mg EC 5-24 by mouth ity of tablet 16:08: daily. [address] ferrous 2021-0 Yes Take by Univers sulfate 5-24 mouth. ity of (IRON ORAL) 16:08: [address] CALCIUM 2021-0 Yes Take by Univers ORAL 5-24 mouth. ity of 16:08: [address] aspirin 81 2021-0 Yes 81mg Take 81 mg U nivers mg EC 5-24 by mouth ity of tablet 16:08: daily. [address] ferrous 2021-0 Yes Take by Univers sulfate 5-24 mouth. ity of (IRON ORAL) 16:08: [address] CALCIUM 2021-0 Yes Take by Univers ORAL 5-24 mouth. ity of 16:08: [address] aspirin 81 2021-0 Yes 81mg Take 81 mg U nivers mg EC 5-24 by mouth ity of tablet 16:08: daily. [address] ferrous 2021-0 Yes Take by Univers sulfate 5-24 mouth. ity of (IRON ORAL) 16:08: [address] CALCIUM 2021-0 Yes Take by Univers ORAL 5-24 mouth. ity of 16:08: [address] aspirin 81 2021-0 Yes 81mg Take 81 mg U nivers mg EC 5-24 by mouth ity of tablet 16:08: daily. [address] metroNIDAZO 2021-0 Yes 500mg 500 mg, Un eddi LE (FLAGYL) 5-12 Oral, ity of tablet 500 18:15: Q12H, [place] mg 00 First dose Medical on [facility] Branch 07/10/21 at 1315, Until Discontinu ed, Routine
Reason for Anti-Infec tive: Documented Infection< br>Documen stefany Infection Site: Pelvic
Duration of Therapy: 7 days ferrous Yes Take by Univers sulfate 5-12 mouth. ity of (IRON ORAL) 13:45: [address] CALCIUM 0 Yes Take by Univers ORAL 5-12 mouth. ity of 13:45: [address] aspirin 81 0 Yes 81mg Take 81 mg U nivers mg EC 5-12 by mouth ity of tablet 13:45: daily. [address] proMETHazin Yes [id number] 25mg Take 1 Univers e 25 mg 5-12 tablet by ity of tablet 00:00: mouth [place] 00 every 6 Medical (six) Branch hours as needed for Nausea and Vomiting (N/V). proMETHazin 0 Yes [id number] 25mg Take 1 Univers e 25 mg 5-12 tablet by ity of tablet 00:00: mouth [place] 00 every 6 Medical (six) Branch hours as needed for Nausea and Vomiting (N/V). proMETHazin Yes [id number] 25mg Take 1 Univers e 25 mg 5-12 tablet by ity of tablet 00:00: mouth [place] 00 every 6 Medical (six) Branch hours as needed for Nausea and Vomiting (N/V). proMETHazin 0 Yes [id number] 25mg Take 1 Univers e 25 mg 5-12 tablet by ity of tablet 00:00: mouth [place] 00 every 6 Medical (six) Branch hours as needed for Nausea and Vomiting (N/V). proMETHazin 0 Yes [id number] 25mg Take 1 Univers e 25 mg 5-12 tablet by ity of tablet 00:00: mouth [place] 00 every 6 Medical (six) Branch hours as needed for Nausea and Vomiting (N/V). proMETHazin 0 Yes [id number] 25mg Take 1 Univers e 25 mg 5-12 tablet by ity of tablet 00:00: mouth [place] 00 every 6 Medical (six) Branch hours as needed for Nausea and Vomiting (N/V). proMETHazin 0 Yes [id number] 25mg Take 1 Univers e 25 mg 5-12 tablet by ity of tablet 00:00: mouth [place] 00 every 6 Medical (six) Branch hours as needed for Nausea and Vomiting (N/V). metroNIDAZO Yes [id number] 500mg Take 1 Univers LE 500 mg 5-12 tablet by ity o f tablet 00:00: mouth [place] 00 every 12 Medical (twelve) Branch hours. proMETHazin Yes [id number] 25mg Take 1 Univers e 25 mg 5-12 tablet by ity of tablet 00:00: mouth [place] 00 every 6 Medical (six) Branch hours as needed for Nausea and Vomiting (N/V). proMETHazin 2021- No [id number] 25mg Take 1 Univers e 25 mg 5-12 07-13 tablet by ity of tablet 00:00: 00:00 mouth [place] 00 :00 every 6 Medical (six) Branch hours as needed for Nausea and Vomiting (N/V). metroNIDAZO 2021- No [id number] 500mg Take 1 Univers LE 500 mg 5-12 05-24 tablet by ity of tablet 00:00: 00:00 mouth [place] 00 :00 every 12 Medical (twelve) Branch hours. ferrous Yes [id number] 325mg Take 1 Un eddi sulfate 325 5-06 tablet by ity of mg (65 mg 00:00: mouth [place] iron) 00 daily. Medical tablet Branch ferrous Yes [id number] 325mg Take 1 Un eddi sulfate 325 5-06 tablet by ity of mg (65 mg 00:00: mouth [place] iron) 00 daily. Medical tablet Branch ferrous Yes [id number] 325mg Take 1 Un eddi sulfate 325 5-06 tablet by ity of mg (65 mg 00:00: mouth [place] iron) 00 daily. Medical tablet Branch ferrous Yes [id number] 325mg Take 1 Un eddi sulfate 325 5-06 tablet by ity of mg (65 mg 00:00: mouth [place] iron) 00 daily. Medical tablet Branch ferrous Yes [id number] 325mg Take 1 Un eddi sulfate 325 5-06 tablet by ity of mg (65 mg 00:00: mouth [place] iron) 00 daily. Medical tablet Branch ferrous Yes [id number] 325mg Take 1 Un eddi sulfate 325 5-06 tablet by ity of mg (65 mg 00:00: mouth [place] iron) 00 daily. Medical tablet Branch ferrous Yes [id number] 325mg Take 1 Un eddi sulfate 325 5-06 tablet by ity of mg (65 mg 00:00: mouth [place] iron) 00 daily. Medical tablet Branch ferrous 0 Yes [id number] 325mg Take 1 Un eddi sulfate 325 5-06 tablet by ity of mg (65 mg 00:00: mouth [place] iron) 00 daily. Medical tablet Branch ferrous 0 Yes [id number] 325mg Take 1 Un eddi sulfate 325 5-06 tablet by ity of mg (65 mg 00:00: mouth [place] iron) 00 daily. Medical tablet Branch ferrous Yes [id number] 325mg Take 1 Un eddi sulfate 325 5-06 tablet by ity of mg (65 mg 00:00: mouth [place] iron) 00 daily. Medical tablet Branch ferrous Yes [id number] 325mg Take 1 Un eddi sulfate 325 5-06 tablet by ity of mg (65 mg 00:00: mouth [place] iron) 00 daily. Medical tablet Branch ferrous Yes [id number] 325mg Take 1 Un eddi sulfate 325 5-06 tablet by ity of mg (65 mg 00:00: mouth [place] iron) 00 daily. Medical tablet Branch ferrous 2021- No [id number] 325mg Take 1 U nivers sulfate 325 5-06 07-13 tablet by it y of mg (65 mg 00:00: 00:00 mouth [place] iron) 00 :00 daily. Medical tablet Branch Blood-Gluco Yes Use as Univ ers se Meter 4-22 directed ity of Kit 00:00: [place] 00 Medical Branch blood sugar Yes Use as Univ ers diagnostic 4-22 directed ity o f strip 00:00: [place] 00 Medical Branch Alcohol 0 Yes Apply to Univer s Swabs PadM 4-22 area(s) 4 ity of 00:00: (four) [place] 00 times Medical daily. Branch lancets 28 Yes Use as Unive rs gauge Misc 4-22 directed ity o f 00:00: [place] 00 Medical Branch Blood-Gluco 0 Yes Use as Univ ers se Meter 4-22 directed ity of Kit 00:00: [place] 00 Medical Branch blood sugar 0 Yes Use as Univ ers diagnostic 4-22 directed ity o f strip 00:00: [place] 00 Medical Branch Alcohol 2022-0 Yes Apply to Univer s Swabs PadM 4-22 area(s) 4 ity of 00:00: (four) [place] 00 times Medical daily. Branch lancets 28 2021-0 Yes Use as Unive rs gauge Misc 4-22 directed ity o f 00:00: [place] 00 Medical Branch Blood-Gluco 2021-0 Yes Use as Univ ers se Meter 4-22 directed ity of Kit 00:00: [place] Medical Branch blood sugar 2021-0 Yes Use as Univ ers diagnostic 4-22 directed ity o f strip 00:00: [place] 00 Medical Branch Alcohol 2021-0 Yes Apply to Univer s Swabs PadM 4-22 area(s) 4 ity of 00:00: (four) [place] 00 times Medical daily. Branch lancets 28 2021-0 Yes Use as Unive rs gauge Misc 4-22 directed ity o f 00:00: [place] Medical Branch Blood-Gluco 2021-0 Yes Use as Univ ers se Meter 4-22 directed ity of Kit 00:00: [place] 00 Medical Branch blood sugar 2021-0 Yes Use as Univ ers diagnostic 4-22 directed ity o f strip 00:00: [place] 00 Medical Branch Alcohol 2021-0 Yes Apply to Univer s Swabs PadM 4-22 area(s) 4 ity of 00:00: (four) [place] 00 times Medical daily. Branch lancets 28 2021-0 Yes Use as Unive rs gauge Misc 4-22 directed ity o f 00:00: [place] 00 Medical Branch Blood-Gluco 2021-0 Yes Use as Univ ers se Meter 4-22 directed ity of Kit 00:00: [place] 00 Medical Branch blood sugar 2021-0 Yes Use as Univ ers diagnostic 4-22 directed ity o f strip 00:00: [place] 00 Medical Branch Alcohol 2021-0 Yes Apply to Univer s Swabs PadM 4-22 area(s) 4 ity of 00:00: (four) [place] 00 times Medical daily. Branch lancets 28 2021-0 Yes Use as Unive rs gauge Misc 4-22 directed ity o f 00:00: [place] 00 Medical Branch Blood-Gluco 2021-0 Yes Use as Univ ers se Meter 4-22 directed ity of Kit 00:00: [place] 00 Medical Branch blood sugar 2021-0 Yes Use as Univ ers diagnostic 4-22 directed ity o f strip 00:00: [place] 00 Medical Branch Alcohol 2021-0 Yes Apply to Univer s Swabs PadM 4-22 area(s) 4 ity of 00:00: (four) [place] 00 times Medical daily. Branch lancets 28 2021-0 Yes Use as Unive rs gauge Misc 4-22 directed ity o f 00:00: [place] Medical Branch Blood-Gluco 2021-0 Yes Use as Univ ers se Meter 4-22 directed ity of Kit 00:00: [place] Medical Branch blood sugar 2021-0 Yes Use as Univ ers diagnostic 4-22 directed ity o f strip 00:00: [place] 00 Medical Branch Alcohol 2021-0 Yes Apply to Univer s Swabs PadM 4-22 area(s) 4 ity of 00:00: (four) [place] 00 times Medical daily. Branch lancets 28 0 Yes Use as Unive rs gauge Misc 4-22 directed ity o f 00:00: [place] Medical Branch ferrous 2021-0 Yes [id number] 325mg Take 1 Un eddi sulfate 325 4-22 tablet by ity of mg (65 mg 00:00: mouth [place] iron) 00 daily. Medical tablet Branch Blood-Gluco 0 Yes Use as Univ ers se Meter 4-22 directed ity of Kit 00:00: [place] Medical Branch blood sugar 2021-0 Yes Use as Univ ers diagnostic 4-22 directed ity o f strip 00:00: [place] 00 Medical Branch Alcohol 2021-0 Yes Apply to Univer s Swabs PadM 4-22 area(s) 4 ity of 00:00: (four) [place] 00 times Medical daily. Branch lancets 28 2021-0 Yes Use as Unive rs gauge Misc 4-22 directed ity o f 00:00: [place] Medical Branch Blood-Gluco 2021-0 Yes Use as Univ ers se Meter 4-22 directed ity of Kit 00:00: [place] 00 [facility] blood sugar 2021-0 Yes Use as Univ ers diagnostic 4-22 directed ity o f strip 00:00: [place] 00 [facility] Alcohol 2021-0 Yes Apply to Univer s Swabs PadM 4-22 area(s) 4 ity of 00:00: (four) [place] 00 times Medical daily. Branch lancets 28 2021-0 Yes Use as Unive rs gauge Misc 4-22 directed ity o f 00:00: [place] [facility] Blood-Gluco 2021-0 Yes Use as Univ ers se Meter 4-22 directed ity of Kit 00:00: [place] [facility] blood sugar 2021-0 Yes Use as Univ ers diagnostic 4-22 directed ity o f strip 00:00: [place] [facility] Alcohol 2021-0 Yes Apply to Univer s Swabs PadM 4-22 area(s) 4 ity of 00:00: (four) [place] 00 times Medical daily. Branch lancets 28 2021-0 Yes Use as Unive rs gauge Misc 4-22 directed ity o f 00:00: [place] [facility] Blood-Gluco 2021-0 Yes Use as Univ ers se Meter 4-22 directed ity of Kit 00:00: [place] [facility] blood sugar 2021-0 Yes Use as Univ ers diagnostic 4-22 directed ity o f strip 00:00: [place] [facility] Alcohol 2021-0 Yes Apply to Univer s Swabs PadM 4-22 area(s) 4 ity of 00:00: (four) [place] 00 times Medical daily. Branch lancets 28 0 Yes Use as Unive rs gauge Misc 4-22 directed ity o f 00:00: [place] [facility] Blood-Gluco 2021-0 Yes Use as Univ ers se Meter 4-22 directed ity of Kit 00:00: [place] [facility] blood sugar 2021-0 Yes Use as Univ ers diagnostic 4-22 directed ity o f strip 00:00: [place] [facility] Alcohol 2021-0 Yes Apply to Univer s Swabs PadM 4-22 area(s) 4 ity of 00:00: (four) [place] 00 times Medical daily. Branch lancets 28 2021-0 Yes Use as Unive rs gauge Misc 4-22 directed ity o f 00:00: [place] [facility] Blood-Gluco 2021-0 Yes Use as Univ ers se Meter 4-22 directed ity of Kit 00:00: [place] [facility] blood sugar 2021-0 Yes Use as Univ ers diagnostic 4-22 directed ity o f strip 00:00: [place] [facility] Alcohol 2021-0 Yes Apply to Univer s Swabs PadM 4-22 area(s) 4 ity of 00:00: (four) [place] 00 times Medical daily. Branch lancets Yes Use as Unive rs gauge Misc 06-20 directed ity o f 00:00: [place] 00 [facility] Blood-Gluco 2021- No Use as Uni vers se Meter 06-20 directed ity of Kit 00:00: 00:00 [place] 00 :00 Medical Branch blood sugar 2021- No Use as Uni vers diagnostic 06-20 directed ity of strip 00:00: 00:00 [place] 00 :00 Medical Branch Alcohol 2021- No Apply to Unive rs Swabs PadM 06-20 area(s) 4 ity of 00:00: 00:00 (four) [place] 00 :00 times Medical daily. Branch lancets 2021- No Use as Univ ers gauge Misc 06-20 directed ity of 00:00: 00:00 [place] 00 :00 Medical Branch ferrous 2021- No [id number] 325mg Take 1 U nivers sulfate 325 06-20 tablet by it y of mg (65 mg 00:00: 00:00 mouth [place] iron) 00 :00 daily. [facility] Branch CALCIUM Yes Take by Univers ORAL 3-02 mouth. ity of 15:33: [address] CALCIUM Yes Take by Univers ORAL 3-02 mouth. ity of 15:33: [place] [id number] Medical Lydia CALCIUM Yes Take by Univers ORAL 3-02 mouth. ity of 15:33: [place] [address] Medical Lydia CALCIUM 0 Yes Take by Univers ORAL 3-02 mouth. ity of 15:33: [place] [address] Medical Lydia CALCIUM 0 Yes Take by Univers ORAL 3-02 mouth. ity of 15:33: [address] aspirin 81 2021-0 Yes 81mg Take 81 mg U nivers mg EC 1-27 by mouth ity of tablet 17:14: daily. [place] [address] Medical Lydia aspirin 81 2021-0 Yes 81mg Take 81 mg U nivers mg EC 1-27 by mouth ity of tablet 17:14: daily. [address] aspirin 81 2021-0 Yes 81mg Take 81 mg U nivers mg EC 1-27 by mouth ity of tablet 17:14: daily. [address] aspirin 81 2-0 Yes 81mg Take 81 mg U nivers mg EC 1-27 by mouth ity of tablet 17:14: daily. [address] aspirin 81 2-0 Yes 81mg Take 81 mg U nivers mg EC 1-27 by mouth ity of tablet 17:14: daily. [address] Blood 2020-03 Yes Use as Univers Pressure 2-13 directed ity of Monitor Kit 00:00: [place] [facility] Blood 2020-1 Yes Use as Univers Pressure 2-13 directed ity of Monitor Kit 00:00: [place] [facility] Blood 2020-03 Yes Use as Univers Pressure 2-13 directed ity of Monitor Kit 00:00: [place] [facility] Blood 2020- Yes Use as Univers Pressure 2-13 directed ity of Monitor Kit 00:00: [place] [facility] Blood 2020- Yes Use as Univers Pressure 2-13 directed ity of Monitor Kit 00:00: [place] [facility] Blood 2020- Yes Use as Univers Pressure 2-13 directed ity of Monitor Kit 00:00: [place] [facility] Blood 2020- Yes Use as Univers Pressure 2-13 directed ity of Monitor Kit 00:00: [place] [facility] Blood 2020-1 Yes Use as Univers Pressure 2-13 directed ity of Monitor Kit 00:00: [place] [facility] Blood 2020- Yes Use as Univers Pressure 2-13 directed ity of Monitor Kit 00:00: [place] [facility] Blood 2020-1 Yes Use as Univers Pressure 2-13 directed ity of Monitor Kit 00:00: [place] [facility] Blood 2020-1 Yes Use as Univers Pressure 2-13 directed ity of Monitor Kit 00:00: [place] [facility] Blood 2020-1 Yes Use as Univers Pressure 2-13 directed ity of Monitor Kit 00:00: [place] [facility] Blood 2020-1 Yes Use as Univers Pressure 2-13 directed ity of Monitor Kit 00:00: [place] [facility] Blood 2020-1 Yes Use as Univers Pressure 2-13 directed ity of Monitor Kit 00:00: [place] [facility] Blood 2020-2- No Use as Univers Pressure 2-13 07-13 directed ity of Monitor Kit 00:00: 00:00 [place] 00 :00 Medical Branch ferrous 2020-03 Yes Take by Univers sulfate 2-06 mouth. ity of (IRON ORAL) 13:46: [address] ferrous 2020-03 Yes Take by Univers sulfate 2-06 mouth. ity of (IRON ORAL) 13:46: [address] ferrous 2020-03 Yes Take by Univers sulfate 2-06 mouth. ity of (IRON ORAL) 13:46: [address] ferrous 2020-03 Yes Take by Univers sulfate 2-06 mouth. ity of (IRON ORAL) 13:46: [address] ferrous 2020-03 Yes Take by Univers sulfate 2-06 mouth. ity of (IRON ORAL) 13:46: [address] 2020-03 Yes Take 1 Univers Cmb#21-Iron 2-02 TAB-CAP/M2 it y of -Folic Acid 00:00: by mouth [place] 14 mg iron- 00 daily. Medica l 400 mcg Tab Branch [facility] 2020-03 Yes Take 1 Univers Cmb#21-Iron 2-02 TAB-CAP/M2 it y of -Folic Acid 00:00: by mouth [place] 14 mg iron- 00 daily. Medica l 400 mcg Tab Branch [facility] 2020-03 Yes Take 1 Univers Cmb#21-Iron 2-02 TAB-CAP/M2 it y of -Folic Acid 00:00: by mouth [place] 14 mg iron- 00 daily. Medica l 400 mcg Tab Branch [facility] 2020-03 Yes Take 1 Univers Cmb#21-Iron 2-02 TAB-CAP/M2 it y of -Folic Acid 00:00: by mouth [place] 14 mg iron- 00 daily. Medica l 400 mcg Tab Branch [facility] 2020-03 Yes Take 1 Univers Cmb#21-Iron 2-02 TAB-CAP/M2 it y of -Folic Acid 00:00: by mouth [place] 14 mg iron- 00 daily. Medica l 400 mcg Tab Branch [facility] 2020-03 Yes Take 1 Univers Cmb#21-Iron 2-02 TAB-CAP/M2 it y of -Folic Acid 00:00: by mouth [place] 14 mg iron- 00 daily. Medica l 400 mcg Tab Branch [facility] 2020-03 Yes Take 1 Univers Cmb#21-Iron 2-02 TAB-CAP/M2 it y of -Folic Acid 00:00: by mouth [place] 14 mg iron- 00 daily. Medica l 400 mcg Tab Branch [facility] 2020-03 Yes Take 1 Univers Cmb#21-Iron 2-02 TAB-CAP/M2 it y of -Folic Acid 00:00: by mouth [place] 14 mg iron- 00 daily. Medica l 400 mcg Tab Branch [facility] 2020-03 Yes Take 1 Univers Cmb#21-Iron 2-02 TAB-CAP/M2 it y of -Folic Acid 00:00: by mouth [place] 14 mg iron- 00 daily. Medica l 400 mcg Tab Branch [facility] 2020-03 Yes Take 1 Univers Cmb#21-Iron 2-02 TAB-CAP/M2 it y of -Folic Acid 00:00: by mouth [place] 14 mg iron- 00 daily. Medica l 400 mcg Tab Branch [facility] 2020-03 Yes Take 1 Univers Cmb#21-Iron 2-02 TAB-CAP/M2 it y of -Folic Acid 00:00: by mouth [place] 14 mg iron- 00 daily. Medica l 400 mcg Tab Branch [facility] 2020-03 Yes Take 1 Univers Cmb#21-Iron 2-02 TAB-CAP/M2 it y of -Folic Acid 00:00: by mouth [place] 14 mg iron- 00 daily. Medica l 400 mcg Tab Branch [facility] 2020-03 Yes Take 1 Univers Cmb#21-Iron 2-02 TAB-CAP/M2 it y of -Folic Acid 00:00: by mouth [place] 14 mg iron- 00 daily. Medica l 400 mcg Tab Branch [facility] 2020-03 Yes Take 1 Univers Cmb#21-Iron 2-02 TAB-CAP/M2 it y of -Folic Acid 00:00: by mouth [place] 14 mg iron- 00 daily. Medica l 400 mcg Tab Branch [facility] 2020-03- No Take 1 Univers Cmb#21-Iron 2-02 07-13 TAB-CAP/M2 i ty of -Folic Acid 00:00: 00:00 by mouth [place] 14 mg iron- 00 :00 daily. Medica l 400 mcg Tab Branch Immunizations Ordered Filled Immunization Date Status Comments [facility]ly [facility] e Immunization Name Name HPV9 2017-05-12 Completed [facility] 00:00:00 [facility] HPV9 2017-05-12 Completed University of 00:00:00 [place] [facility] HPV9 2017-05-12 Completed University of 00:00:00 [place] [facility] HPV9 2017-05-12 Completed University of 00:00:00 [place] [facility] HPV9 2017-05-12 Completed University of 00:00:00 [place] [facility] HPV9 2017-05-12 Completed University of 00:00:00 [place] [facility] HPV9 2017-05-12 Completed University of 00:00:00 [place] [facility] HPV9 2017-05-12 Completed University of 00:00:00 [place] [facility] HPV9 2017-05-12 Completed University of 00:00:00 [place] [facility] HPV9 2017-05-12 Completed University of 00:00:00 [place] [facility] HPV9 2017-05-12 Completed University of 00:00:00 [place] [facility] HPV9 2017-05-12 Completed University of 00:00:00 [place] [facility] HPV9 2017-05-12 Completed University of 00:00:00 [place] [facility] HPV9 2017-05-12 Completed University of 00:00:00 [place] [facility] HPV9 2017-05-12 Completed University of 00:00:00 [place] [facility] HPV9 2017-05-12 Completed University of 00:00:00 [place] [facility] HPV9 2017-05-12 Completed University of 00:00:00 [place] [facility] HPV9 2017-05-12 Completed University of 00:00:00 [place] [facility] HPV9 2017-05-12 Completed University of 00:00:00 [facility] Td 2009-03-01 Completed University of 00:00:00 [facility] Td 2009-03-01 Completed University of 00:00:00 [facility] Td 2009-03-01 Completed University of 00:00:00 [facility] Td 2009-03-01 Completed University of 00:00:00 [facility] Td 2009-03-01 Completed University of 00:00:00 [facility] Td 2009-03-01 Completed University of 00:00:00 [facility] Td 2009-03-01 Completed University of 00:00:00 [facility] Td 2009-03-01 Completed University of 00:00:00 [facility] Td 2009-03-01 Completed University of 00:00:00 [facility] Td 2009-03-01 Completed University of 00:00:00 [facility] Td 2009-03-01 Completed University of 00:00:00 [place] [facility] Td 2009-03-01 Completed University of 00:00:00 [place] [facility] Td 2009-03-01 Completed University of 00:00:00 [place] [facility] Td 2009-03-01 Completed University of 00:00:00 [place] [facility] Td 2009-03-01 Completed University of 00:00:00 [place] [facility] Td 2009-03-01 Completed University of 00:00:00 [place] [facility] Td 2009-03-01 Completed University of 00:00:00 [place] [facility] Td 2009-03-01 Completed University of 00:00:00 [place] [facility] Td 2009-03-01 Completed University of 00:00:00 [facility] Vital Signs Vital Name Observation Time Observation Value Comments Source Systolic blood 2021-10-29 20:55:00 125 mm[Hg] Univer sity of pressure [facility] Diastolic blood 2021-10-29 20:55:00 81 mm[Hg] Unive rsity of [facility] Heart rate 2021-10-29 20:55:00 82 /min [facility] Body temperature 2021-10-29 20:55:00 36.83 Ariane [facility] Respiratory rate 2021-10-29 20:55:00 18 /min [facility] Body height 2021-10-29 20:55:00 165.1 cm [facility] Body weight 2021-10-29 20:55:00 135.263 kg [facility] BMI 2021-10-29 20:55:00 49.62 kg/m2 [facility] Oxygen saturation in 2021-10-29 20:55:00 97 /min [facility] Arterial blood by [facility] Pulse oximetry Branch Systolic blood 2021-10-01 18:16:00 150 mm[Hg] Univer sity of pressure [facility] Diastolic blood 2021-10-01 18:16:00 105 mm[Hg] Unive rsity of [facility] Heart rate 2021-10-01 18:06:00 75 /[facility] 2021-10-01 18:06:00 36.72 Ariane [facility] rate 2021-10-01 18:06:00 19 /min [facility] Body height 2021-10-01 18:06:00 165.1 cm Universi ty of [place] [facility] Body weight 2021-10-01 18:06:00 116.574 kg Universi ty of [place] [facility] BMI 2021-10-01 18:06:00 42.77 kg/m2 Universi ty of [place] [facility] Systolic blood 2021-09-10 12:30:00 136 mm[Hg] Univer sity of pressure [place] [facility] Diastolic blood 2021-09-10 12:30:00 83 mm[Hg] Unive rsity of pressure [place] [facility] Heart rate 2021-09-10 12:25:00 61 /min Universi ty of [place] [facility] Body temperature 2021-09-10 12:25:00 36.83 Ariane Univ ersity of [facility] Respiratory rate 2021-09-10 12:25:00 16 /min Univ ersity of [facility] Oxygen saturation in 2021-09-10 12:25:00 100 /min University of Arterial blood by [facility] Pulse oximetry Branch Body height 2021-09-09 10:19:00 165.1 cm Universi ty of [place] [facility] Body weight 2021-09-09 10:19:00 141.069 kg Universi ty of [place] [facility] BMI 2021-09-09 10:19:00 51.75 kg/m2 Universi ty of [place] [facility] Systolic blood 2021-09-05 19:05:00 139 mm[Hg] Univer sity of pressure [place] [facility] Diastolic blood 2021-09-05 19:05:00 87 mm[Hg] Unive rsity of pressure [place] [facility] Heart rate 2021-09-05 19:05:00 73 /min Universi ty of [place] [facility] Body temperature 2021-09-05 19:05:00 36.56 Airane Univ ersity of [place] [facility] Respiratory rate 2021-09-05 19:05:00 18 /min Univ ersity of [place] [facility] Body height 2021-09-05 19:05:00 165.1 cm Universi ty of [place] [facility] Body weight 2021-09-05 19:05:00 143.79 kg Universi ty of [place] [facility] BMI 2021-09-05 19:05:00 52.75 kg/m2 Universi ty of [place] [facility] Systolic blood 2021-08-27 21:08:00 123 mm[Hg] Univer sity of pressure [place] [facility] Diastolic blood 2021-08-27 21:08:00 87 mm[Hg] Unive rsity of pressure [place] [facility] Heart rate 2021-08-27 21:08:00 75 /min Universi ty of [place] [facility] Body temperature 2021-08-27 21:08:00 36.94 Ariane Univ ersity of [place] [facility] Respiratory rate 2021-08-27 21:08:00 18 /min Univ ersity of [place] [facility] Body height 2021-08-27 21:08:00 165.1 cm Universi ty of [place] [facility] Body weight 2021-08-27 21:08:00 143.155 kg Universi ty of [place] [facility] BMI 2021-08-27 21:08:00 52.52 kg/m2 Universi ty of [place] [facility] Systolic blood 2021-08-07 21:14:00 118 mm[Hg] Univer sity of pressure [place] [facility] Diastolic blood 2021-08-07 21:14:00 82 mm[Hg] Unive rsity of pressure [place] [facility] Heart rate 2021-08-07 21:14:00 66 /min Universi ty of [place] [facility] Body temperature 2021-08-07 21:14:00 36.83 Ariane Univ ersity of [place] [facility] Respiratory rate 2021-08-07 21:14:00 18 /min Univ ersity of [place] [facility] Body height 2021-08-07 21:14:00 165.1 cm Universi ty of [place] [facility] Body weight 2021-08-07 21:14:00 143.79 kg Universi ty of [place] [facility] BMI 2021-08-07 21:14:00 52.75 kg/m2 Universi ty of [place] [facility] Systolic blood 2021-07-22 21:07:00 109 mm[Hg] Univer sity of pressure [place] [facility] Diastolic blood 2021-07-22 21:07:00 74 mm[Hg] Unive rsity of pressure [place] [facility] Heart rate 2021-07-22 21:07:00 76 /min Universi ty of [place] [facility] Body temperature 2021-07-22 21:07:00 36.61 Ariane Univ ersity of [place] [facility] Body height 2021-07-22 21:07:00 165.1 cm Universi ty of [place] [facility] Body weight 2021-07-22 21:07:00 142.974 kg Universi ty of [place] [facility] BMI 2021-07-22 21:07:00 52.45 kg/m2 Universi ty of [place] [facility] Systolic blood 2021-07-10 16:13:00 112 mm[Hg] Univer sity of pressure [facility] Diastolic blood 2021-07-10 16:13:00 58 mm[Hg] Unive rsity of pressure [place] [facility] Heart rate 2021-07-10 16:13:00 78 /min Universi ty of [facility] Body temperature 2021-07-10 16:13:00 36.67 Ariane Univ ersity of [facility] Respiratory rate 2021-07-10 16:13:00 18 /min Univ ersity of [facility] Body height 2021-07-10 16:13:00 165.1 cm Universi ty of [place] [facility] Body weight 2021-07-10 16:13:00 142.883 kg Universi ty of [place] [facility] BMI 2021-07-10 16:13:00 52.42 kg/m2 Universi ty of [place] [facility] Systolic blood 2021-07-04 21:59:00 125 mm[Hg] Univer sity of pressure [place] [facility] Diastolic blood 2021-07-04 21:59:00 84 mm[Hg] Unive rsity of pressure [place] [facility] Heart rate 2021-07-04 21:58:00 90 /min Universi ty of [place] [facility] Body temperature 2021-07-04 21:58:00 36.83 Ariane Univ ersity of [place] [facility] Respiratory rate 2021-07-04 21:58:00 19 /min Univ ersity of [place] [facility] Body height 2021-07-04 21:58:00 165.1 cm Universi ty of [place] [facility] Body weight 2021-07-04 21:58:00 144.788 kg Universi ty of [place] [facility] BMI 2021-07-04 21:58:00 53.12 kg/m2 Universi ty of [place] [facility] Procedures Procedure Date / Time Performing Clinician Source Performed CBC WITH DIFF 2021-09-10 10:00:00 George Monreal [place] [facility] HB ABO GROUPING 2021-09-09 11:00:00 George Monreal [place] [facility] RHO (D) IMMUNE GLOBULIN 2021-09-09 11:00:00 George Monreal [facility] CONSENT/REFUSAL FOR 2021-09-08 16:30:00 [facility] ASSIGNMENT OF BENEFITS 2021-09-08 16:26:56 Doctor Unassigned, No [facility] NOTICE OF PRIVACY 2021-09-08 16:26:44 Doctor Unassigned, No Univ [facility] CONSENT/REFUSAL FOR 2021-09-08 16:26:30 [facility] ASSIGNMENT OF BENEFITS 2021-09-08 16:26:17 Doctor Unassigned, No [facility] PHYSICIAN ORDERS 2021-09-08 05:01:00 Doctor Unassigned, No [facility] W/O 2021-09-05 00:00:00 George Monreal [facility] DSU PRE-OP 2021-08-27 05:01:00 Doctor Unassigned, No [facility] POCT URINALYSIS W/O 2021-08-27 00:00:00 Adum, eRbecca Snider [facility] POCT URINALYSIS W/O 2021-08-07 00:00:00 Adum, Rebecca Snider [facility] POCT URINALYSIS W/O 2021-07-22 00:00:00 Adum, Rebecca Snider [facility] LACTATE DEHYDROGENASE 2021-07-10 17:36:00 Adum, Rebecca Snider [facility] URIC ACID 2021-07-10 17:36:00 Adum, Rebecca Snider [place] [facility] COMP. METABOLIC PANEL 2021-07-10 17:36:00 Adum, Rebecca Snider [facility] ([id number]) [facility] ADC CLC OR [facility] ONLY - 2021-07-10 17:36:00 Rebecca Curiel [facility] NOTICE OF PRIVACY 2021-07-10 15:43:53 Doctor Unassigned, No [facility]REFUSAL FOR 2021-07-10 15:43:43 Doctor [facility]igned, [facility] ASSIGNMENT OF BENEFITS 2021-07-10 15:43:32 Doctor Unassigned, No [facility] POCT URINALYSIS W/O 2021-07-04 22:00:00 Rebecca Curiel [facility] SPECIFIC GRAVITY [facility] SCANNED LAB RESULTS 2021-06-17 05:01:00 Doctor [facility]assigned, No [facility] En[facility] Start End Encounter Admission Attending Care Care Encounter Source Date/Time Date/Time Type Type Clinicians Facility Department ID 2021-07-10 Outpatient P [facility] [place] [id number] Univers 13:45:42 ity [facility] 2020-12-29 Emergency [facility] [id number] Univers 23:25:03 ity [facility] 2021-11-10 2021-11-10 Outpatient R TAI, [facility] [id number] Univers 13:00:00 13:00:00 ANNETTA kaplan [facility] 2021-10-29 2021-10-29 Routine Adum, [facility] [id number] Univers 16:00:00 16:35:52 Rebecca VOGEL [id number] ity of Visit WOMEN'S [id number] [facility] [id number] [place] [address] Branch 2021-10-29 2021-10-29 Outpatient R ADUM, [facility] [id number] Univers 16:00:00 16:35:52 REBECCA kaplan [facility] 2021-10-22 2021-10-22 Outpatient R ADUM, [facility] [id number] Univers 15:45:00 15:45:00 REBECCA kaplan [facility] 2021-10-02 2021-10-02 Telephone Adum, [facility] [id number] Univers 00:00:00 00:00:00 Rebecca TUCKER [id number] ity [facility] [id number] [id number] [address] 2021-10-01 2021-10-01 Outpatient R ADUM, [facility] [id number] Univers 13:15:00 13:59:[address] [facility] 2021-10-01 2021-10-01 Routine Adum, [facility] [id number] Univers 13:15:00 13:59:30 Rebecca Snider JASPREET [id number] ity of Visit WOMEN'S [id number] [facility] [id number] [address] 2021-09-17 2021-09-17 Telephone George Monreal [facility] [id number] Univers 00:00:00 00:00:00 Joo TUCKER [id number] i ty of [place] [id number] [place] [id number] [address] 2021-09-09 2021-09-10 Inpatient P GEORGE MONREAL [facility] [place] [id number] Univers 03:58:00 15:38:[address] [facility] 2021-09-09 2021-09-10 [facility] George Monreal [facility] [id number] Univers 03:58:00 15:38:00 Encounter Joo TUCKER [id number] ity of [facility] [id number] [place] [id number] [facility] 083 Branch 2021-09-08 2021-09-08 Laboratory Only, Adc Test [facility] [id number] Univers 11:15:00 11:30:00 Only George Monreal Joo TUCKER [id number] ity of [facility] [id number] [id number] [facility] 353 Branch 2021-09-08 2021-09-08 [place] Man Sera, Naty Lab Main [facility] CARE FACILITY 1.2.8 40.114 [id number] Univers 11:00:00 11:15:00 Visit George Monreal 350.1.13.10 ity of [place] [phone] [facility] [address] [facility] 2021-09-08 2021-09-08 Outpatient R GEORGE MONREAL [facility] [id number] Univers 11:00:00 11:00:[address] [facility] 2021-09-05 2021-09-05 Outpatient R RICHA [facility] B [id number] Univers 14:00:00 14:33:15 MELQUIADES CHAUDHRY ity [facility] 2021-09-05 2021-09-05 Routine George Monreal [facility] 1.2.840.11 [id number] Univers 14:00:00 14:33:15 Melquiades Chaudhry 350.1.13. [address] [facility] 4.2.7.2.[address] [facility] [phone] [address] 2021-09-03 2021-09-03 Outpatient R AD, [facility] [id number] Univers 15:45:00 15:45:00 REBECCA kaplan [facility] 2021-08-27 2021-08-27 Routine Adum, [facility] 1.2.840.114 [id number] Univers 15:30:00 16:46:41 Rebecca TUCKER 350.1.13.10 ity of [place] [phone] [facility] [address] [facility] 2021-08-27 2021-08-27 Outpatient R ADUM, [facility] [id number] Univers 15:30:00 16:46:41 REBECCA ittao [facility] 2021-08-27 2021-08-27 Orders Doctor ROSE 1.2.840.114 [id number] Univers 00:00:00 00:00:00 Only Unassigned, SONNY 350.1.13.10 ity of [facility] 4.2.7.2.686 Robert as [phone] [address] 2021-08-18 2021-08-18 [place]url[place] Man Ultrasound, [facility] 1.2 .840.114 [id number] Univers 11:00:00 11:30:00 Visit Raegan PiercekimMark Anthony alcaraz [place] 350.1. 13.10 ity of [facility] 4.2.7.2.686 Robert as MATERNAL [phone] [facility] ical & CHILD [address] [place] [address] 2021-08-18 2021-08-18 Outpatient P RAEGAN [facility] [id number] Univers 11:00:00 11:00:00 CARLOS EDUARDO it y of [facility] 2021-08-07 2021-08-07 Outpatient R ADUM, [facility] [id number] Univers 16:00:00 16:47:57 [facility]-08-07 2021-08-07 Routine Adum, [facility] 1.2.840.114 [id number] Univers 16:00:00 16:47:57 Rebecca Snider WINKELMAN 350.1.13.10 ity of [place] [phone] Wi dic[address] 2021-07-22 2021-07-22 Outpatient R ADUM, [facility] [id number] Univers 16:15:00 16:27:19 [facility] 2021-07-22 2021-07-22 Routine Adum, [facility] 1.2.840.114 [id number] Univers 16:15:00 16:27:19 Rebecca L WINKELMAN 350.1.13.10 ity of Visit [place] [phone] Wi dical [address] 2021-07-17 2021-07-17 Outpatient R ADUM, [facility] [id number] Univers 16:00:00 16:00:00 [facility] 2021-07-10 2021-07-10 Outpatient P ADUM, [facility] [place] [id number] Univers 10:37:00 13:45:[address] [facility] 2021-07-10 2021-07-10 [facility] George Monreal [facility] 1.2.840.114 [id number] Univers 10:37:00 13:45:00 Encounter Adum, Rebecca Snider [place] 350.1.13.10 ity of [facility] 4.2.7.2.686 [place] [phone] [address] 2021-07-10 2021-07-10 Telephone Ad, [facility] 1.2.535.218 [id number] Univers 00:00:00 00:00:00 Rebecca L [place] 350.1.13.10 ity of [place] [phone] [address] 2021-07-04 2021-07-04 Outpatient R ADUM, [facility] [id number] Univers 16:15:00 17:25:[address] [facility] 2021-07-04 2021-07-04 Routine Ad, [facility] 1.2.840.114 [id number] Univers 16:15:00 17:25:24 Rebecca L [place] 350.1.13.10 ity of Visit [place] 4.[place] [phone] [address] 2021-07-04 2021-07-04 Outpatient R ADUM, [facility] [id number] Univers 16:15:00 16:15:[address] [facility] 2021-07-04 2021-07-04 Telephone Ad, [facility] 1.2.946.602 [id number] Univers 00:00:00 00:00:00 Rebecca L [place] 350.1.13.10 ity of [place] [phone] [address] 2021-06-26 2021-06-26 Telephone Adum, [facility] 1.2.049.764 [id number] Univers 00:00:00 00:00:00 Rebecca L [place] 350.1.13.10 ity of [place] [phone] Wi dical NAL [address] [facility] 2021-06-24 2021-06-24 Telephone Adum, [facility] 1.2.107.658 [id number] Univers 00:00:00 00:00:00 Rebecca L [place] 350.1.13.10 ity of [place] [phone] Wi dical NAL [address] [facility] 2021-06-20 2021-06-20 Outpatient R AD, [facility] [id number] Univers 15:45:00 16:58:[address] [facility] 2021-06-20 2021-06-20 Routine Adum, [facility] 1.2.840.114 [id number] Univers 15:45:00 16:58:18 Rebecca L [place] 350.1.13.10 ity of Visit [place] 4[place] [phone] Wi dical NAL [address] [facility] 2021-06-20 2021-06-20 Case Ad, [facility] 1.2.840.114 [id number] Univers 00:00:00 00:00:00 Management Rebecca L [place] 350.1.13.10 ity of [place] 4[place] [phone] Wi dical NAL [address] [facility] 2021-06-17 2021-06-17 Burl[place] Man Sera, Adc Lab Main [facility] 1.2.8 40.114 [id number] Univers 11:30:00 11:45:00 Visit Adum, Rebecca Snider [place] 350.1.13.10 ity of [facility] 4.2.7.2.[place] [phone] [facility] [address] [facility] 2021-06-17 2021-06-17 Outpatient P CARLIN [facility] [id number] Univers 09:45:00 10:31:22 CARLOS EDUARDO mina y of S, [facility] 2021-06-17 2021-06-17 [place] Man Ultrasound, Adc [facility] 1.2 .840.114 [id number] Univers 09:45:00 10:31:22 Visit Raegan SmithefraínMark Anthony alcaraz 350.1 .13.10 ity of [place] 4.2.[place] [phone] Wi dical NAL [address] [facility] 2021-06-17 2021-06-17 Telephone Adum, [facility] 1.2.852.404 [id number] Univers 00:00:00 00:00:00 Rebecca TUCKER 350.1.13.10 ity of [place] [phone] Wi dical [address] 2021-06-17 2021-06-17 Orders Doctor MILTON 1.2.840.114 [id number] Univers 00:00:00 00:00:00 Only Unassigned, SONNY 350.1.13.10 ity of [facility] 4.2.7.2.686 Robert as [phone] [address] 2021-05-29 2021-05-29 Outpatient R AD, [facility] [id number] Univers 16:00:00 16:00:00 REBECCA [facility] 2021-05-14 2021-05-14 [place] Man Ultrasound, [facility] 1.2 .840.114 [id number] Univers 10:45:00 11:57:06 Visit Evin Woods [place] 350.1.13.10 ity [facility] 4.2.7.2.686 Robert as MATERNAL [phone] [facility] ical & CHILD [address] [place] [address] 2021-05-14 2021-05-14 Outpatient P REGINO [facility] [id number] Univers 10:45:00 10:45:00 EVIN kaplan [facility] 2021-05-06 2021-05-06 Outpatient R ADUM, [facility] [id number] Univers 09:30:00 09:30:00 REBECCA kaplan [facility] 2021-04-30 2021-04-30 Outpatient R ADUM, [facility] [id number] Univers 15:30:00 15:35:46 REBECCA ittao [facility] 2021-04-29 2021-04-29 Outpatient R ADUM, [facility] [id number] Univers 16:00:00 16:00:00 RBEECCA ity [facility] 2021-04-24 2021-04-24 Outpatient R ADUM, [facility] [id number] Univers 16:00:00 16:00:00 REBECCA ittao [facility] 2021-04-14 2021-04-14 [facility] 1.2.311.673 [id number] Univers 00:00:00 00:00:00 Rebecca TUCKER 350.1.13.10 ity of [place] [phone] Wi dical [facility] [address] [facility] 2021-04-09 2021-04-09 [place] Man Sera, Adc Lab Main [facility] 1.2.8 40.114 [id number] Univers 11:15:00 11:30:00 Visit Adsulaiman, Rebeccajigar TUCKER 350.1.13.10 ity of [place] 4[place] [phone] Wi dical [facility] [address] [facility] 2021-04-09 2021-04-09 Outpatient R AD, [facility] [id number] Univers 11:15:00 11:15:00 REBECCA ittao [facility] 2021-04-09 2021-04-09 Outpatient R AD, [facility] [id number] Univers 11:15:00 11:15:00 REBECCA ittao [facility] 2021-04-09 2021-04-09 Orders Doctor MILTON 1.2.840.114 [id number] Univers 00:00:00 00:00:00 Only Unassigned, SONNY 350.1.13.10 ity of [facility] 4.2.7.2.686 Robert as [phone] [address] 2021-04-09 2021-04-09 George Kerns [facility] 1.2.412.325 [id number] Univers 00:00:00 00:00:00 Management Cam GARRETT 350.1.13.10 ity of [facility] 4.2.7.2.[place] [phone] Wi dical NAL [address] [facility] 2021-03-27 2021-03-27 [place] Man Sera, Naty Lab Main [facility] 1.2.8 40.114 [id number] Univers 17:00:00 17:15:00 Visit Adsulaiman, Rebecca Snider G[place] 350.1.13.10 ity of [place] 4[place] [phone] Wi dical [facility] [address] [facility] 2021-03-27 2021-03-27 Outpatient R ADUM, [facility] [id number] Univers 17:00:00 17:00:00 REBECCA ity [facility] 2021-03-27 2021-03-27 Outpatient R ADUM, [facility] [id number] Univers 16:00:00 16:34:58 REBECCA ity [facility] 2021-03-27 2021-03-27 Outpatient R ADUM, [facility] [id number] Univers 16:00:00 16:34:58 REBECCA ity [facility] 2021-03-27 2021-03-27 Routine Adum, [facility] 1.2.840.114 [id number] Univers 16:00:00 16:34:58 Rebecca Snider [place] 350.1.13.10 ity of Visit [place] 4[place] [phone] [facility] [address] [facility] 2021-03-27 2021-03-27 Outpatient R ADUM, [facility] [id number] Univers 16:00:00 16:00:00 REBECCA ity [facility] 2021-03-03 2021-03-03 Outpatient R [facility] [id number] Univers 12:00:00 12:00:[address] [facility] 2021-03-03 2021-03-03 Outpatient R ADUM, [facility] [id number] Univers 12:00:00 12:00:00 REBECCA ity [facility] 2021-02-27 2021-02-27 Outpatient R ADUM, [facility] [id number] Univers 16:00:00 17:18:20 REBECCA ity [facility] 2021-02-27 2021-02-27 Routine Adum, [facility] 1.2.840.114 [id number] Univers 16:00:00 17:18:20 Rebecca TCUKER 350.1.13.10 ity of Visit [place] 4[place]7.2.[place] [phone] Wi dical NAL [address] [place] [address] 2021-02-27 2021-02-27 Outpatient R ADUM, [facility] [id number] Univers 16:00:00 16:00:00 REBECCA ity [facility] 2021-02-25 2021-02-25 Telephone Pcp, [facility] 1.2.140.898 [id number] Univers 00:00:00 00:00:00 Patient [place] 350.1.13.10 i ty of Does Not [place] 4.2.7.2.686 Robert as Have A PROFESSIO [phone] Wi dical NAL [address] [place] [address] 2021-02-25 2021-02-25 Orders Doctor MILTON 1.2.840.114 [id number] Univers 00:00:00 00:00:00 Only Unassigned, SONNY 350.1.13.10 ity of [facility] 4.2.7.2.686 Robert as [phone] [address] 2021-02-07 2021-02-07 Patient Adum, [facility] 1.2.840.114 [id number] Univers 00:00:00 00:00:00 Secure Msg Rebecca Snider [place] 350.1.13.10 ity of [facility] 4.2.7.2.[place] [phone] Wi dical NAL [address] [place] [address] 2021-02-03 2021-02-03 Routine George Monreal [facility] 1.2.809.955 [id number] Univers 13:36:33 14:04:22 Cam GARRETT 350.1.13.10 ity of Visit [place] 4[place]7.2.[place] [phone] Wi dical NAL [address] [place] [address] 2021-02-03 2021-02-03 Outpatient R GEORGE MONREAL [facility] [id number] Univers 13:30:00 14:04:[address] [facility] 2021-02-03 2021-02-03 Telephone Adum, [facility] 1.2.752.716 [id number] Univers 00:00:00 00:00:00 Rebecca Snider [place] 350.1.13.10 ity of [facility] 4.2.7.2.[place] [phone] Wi dical NAL [address] [place] [address] 2021-01-31 2021-01-31 Case Adum, [facility] 1.2.840.114 [id number] Univers 00:00:00 00:00:00 Management Rebecca Snider [place] 350.1.13.10 ity of [place] 4.2.7.2.[place] [phone] Wi dical NAL [address] [place] [address] 2021-01-31 2021-01-31 Telephone Ad, [facility] 1.2.743.881 [id number] Univers 00:00:00 00:00:00 Rebecca Snider [place] 350.1.13.10 ity of [place] 4.2.7.2.[place] [phone] Wi dical NAL [address] [place] [address] 2021-01-30 2021-01-30 Initial Ad, [facility] 1.2.840.114 [id number] Univers 13:45:39 15:16:39 Rebecca Snider [place] 350.1.13.10 ity of Visit [place] 4.2.7.2.[place] [phone] Wi dical NAL [address] [place] [address] 2021-01-30 2021-01-30 Outpatient R ADUM, [facility] [id number] Univers 13:45:00 15:16:39 REBECCA ity [facility] 2021-01-30 2021-01-30 Outpatient R ADUM, [facility] [id number] Univers 13:45:00 15:16:39 REBECCA ity [facility] 2021-01-30 2021-01-30 Initial Ad, [facility] 1.2.840.114 [id number] Univers 13:45:00 15:16:39 Rebecca L [place] 350.1.13.10 ity of Visit [place] 4.2.7.2.[place] [phone] Wi dical NAL [address] [place] [address] 2021-01-30 2021-01-30 Telephone Adum, [facility] 1.2.934.213 [id number] Univers 00:00:00 00:00:00 Rebecca L [place] 350.1.13.10 ity of [facility] 4.2.7.2.686 [place] [phone] Wi dical NAL [address] [place] [address] 2021-01-29 2021-01-29 Outpatient R AD, [facility] [id number] Univers 16:34:17 23:59:[address] [facility] 2021-01-29 2021-01-29 Hospital Ad, [facility] 1.2.840.114 [id number] Univers 16:30:00 23:59:00 Encounter Rebecca Snider [place] 350.1.13.10 ity of [facility] 4.2.7.2.686 [place] [phone] [facility] [address] 2021-01-21 2021-01-21 Patient Adum, [facility] 1.2.840.114 [id number] Univers 00:00:00 00:00:00 Secure Msg Rebecca Snider [place] 350.1.13.10 ity of [facility] 4.2.7.2.[place] [phone] Wi dical NAL [address] [place] [address] 2021-01-20 2021-01-20 Telephone Adum, [facility] 1.2.129.357 [id number] Univers 00:00:00 00:00:00 Rebecca L [place] 350.1.13.10 ity of [facility] 4.2.7.2.686 [place] [phone] Wi dical NAL [address] [facility] 2021-01-18 2021-01-18 Burl[place] Man Sera, Adc Lab Main [facility] 1.2.8 40.114 [id number] Univers 09:13:56 09:28:56 Visit Adum, Rebecca Snider [place] 350.1.13.10 ity of [facility] 4.2.7.2.686 [place] [facility] [phone] Wi dical [facility] [address] [facility] 2021-01-18 2021-01-18 Outpatient R [facility] [id number] Univers 09:00:00 09:00:[address] [facility] 2021-01-18 2021-01-18 Outpatient R ADUM, [facility] [id number] Univers 09:00:00 09:00:00 REBECCA ity [facility] 2021-01-16 2021-01-16 Outpatient R ADUM, [facility] [id number] Univers 14:00:00 14:00:00 REBECCA ity [facility] 2021-01-16 2021-01-16 Outpatient R ADUM, [facility] [id number] Univers 14:00:00 14:00:00 REBECCA [facility] 2021-01-16 2021-01-16 Emergency X REESE, K [facility] ERT [id number] Univers 10:03:00 12:46:00 ity [facility] 2021-01-16 2021-01-16 Emergency Poornima Leigh [facility] 1.2.840.114 [id number] Univers 10:03:00 12:46:00 Aminata TUCKER 350.1.13.10 i ty of [facility] 4.2.7.2.686 [facility] [place] [phone] [address] 2021-01-15 2021-01-15 Outpatient R ADUM, [facility] [id number] Univers 14:30:00 15:31:36 REBECCA ity [facility] 2021-01-15 2021-01-15 Outpatient R ADUM, [facility] [id number] Univers 14:30:00 15:31:36 REBECCA ity [facility] 2021-01-15 2021-01-15 Office Adum, [facility] 1.2.840.114 [id number] Univers 14:17:38 15:31:36 Visit Rebecca TUCKER 350.1.13.10 ity of [facility] 4.2.7.2.686 [facility] [phone] Wi dical NAL [address] [facility] 2021-01-14 2021-01-14 Emergency X GARCIA, [facility] ERT [id number] Univers 11:11:00 15:34:00 ELSY kaplan [facility] 2021-01-14 2021-01-14 [facility] 1.2.342.878 [id number] Univers 11:11:00 15:34:00 Elsy TUCKER 350.1.13.10 i ty of [place] 4.2.7.2.686 [facility] s [place] [phone] [facility] 084 [address] 2021-01-14 2021-01-14 Emergency X GARCIA, [facility] ERT [id number] Univers 11:11:00 15:34:00 ELSY kaplan [facility] 2021-01-14 2021-01-14 Telephone George Monreal [facility] 1.2.840.114 [id number] Univers 00:00:00 00:00:00 Joo TUCKER 350.1.13.10 i ty of [place] 4.2.7.2.686 [facility] PROF[facility]IO [phone] Wi dical NAL [address] [place] [address] 2020-10-13 2020-10-13 Outpatient R [facility] [id number] Univers 16:00:00 16:00:[address] [facility] 2020-10-06 2020-10-06 Outpatient R [facility] [id number] Univers 12:00:00 12:00:00 LY[address] le[address] o f [facility] 2020-10-05 2020-10-05 Outpatient R [facility] [id number] Univers 12:00:00 12:00:[address]YNN ity o f [facility] 2020-08-04 2020-08-04 Emergency Johann, [facility] 1.2.840.114 [id number] 14:11:00 18:11:00 Janet Tucker 350.1.13.10 [place] 4.2.7.2.686 [place] [phone] [id number] 2020-04-12 2020-04-12 [facility] 1.2.840.114 [id number] 00:00:00 00:00:00 Esther Lemus [place] 350.1.13.10 [facility] 4.2.7.2.686 MATERNAL [phone] & CHILD [address] 2020-04-11 2020-04-11 [facility] [id number] Univers 14:30:00 14:30:00 ISIDRA [facility] 2020-04-10 2020-04-10 Outpatient R [facility] [id number] Univers 11:20:00 11:20:00 [facility] 2014-09-27 2014-09-27 Outpatient [facility] [id number] Univers 14:00:00 14:00:00 TR[address]Y kaplan o f [facility] Results Test Description Test Time Test Comments Results Result Comments Source RHO (D) IMMUNE GLOBULIN 2021-09-09 20:47:05 Test Item Value Reference Range Interpretation Comme nts RHIG CANDIDATE? (test code = No- see comment Patient is not a candidate for RhIg- 5055) Patient is Rh P ositive.Performed at [facility] Laboratory Services - [facility] Blood Mivc[address] Free: [phone] A No. [id number] [facility] Screen - ONCE [id number] 12:58:30 Test Item Value Reference Range Interpretation Comments ABO & RH (test code O Positive Performe d at [facility] = 20) Laboratory Serv [facility] Blood Bank1 [address] Free: [phone] A No. [id number] IAT (test code = Negative Performed a t [facility] 1185) Laboratory Serv [facility] Blood [address] [place] [address] Free: [phone] A No. [id number] [facility] HospitalPO[facility]ALYSIS W/O SPECIFIC [id number] 19:11:00 Test Item Value Reference Range Interpretation Comments POCT PH U (test code = 3254) N/A 5-8 POCT U LEUK EST (test code = N/A Negative - Negative 3263) POCT U NIT (test code = 3262) N/A Negative - Negative POCT U PROT (test code = 3259) Negative Negative - Negative POCT U GLU (test code = 3256) Negative Negative - Negative POCT U KETONE (test code = 3258) N/A Negative - Negative POCT U BLD (test code = 3257) N/A Negative - Negative [facility]/O SPECIFIC [id number] 21:04:00 Test Item Value Reference Range Interpretation Comments POCT PH U (test code = 3254) n/a 5-8 POCT U LEUK EST (test code = n/a Negative - Negative 3263) POCT U NIT (test code = 3262) n/a Negative - Negative POCT U PROT (test code = 3259) negative Negative - Negative POCT U GLU (test code = 3256) negative Negative - Negative POCT U KETONE (test code = 3258) n/a Negative - Negative POCT U BLD (test code = 3257) n/a Negative - Negative [facility] SPECIFIC [id number] 21:30:00 Test Item Value Reference Range Interpretation Comments POCT PH U (test code = 3254) n/a 5-8 POCT U LEUK EST (test code = 3263) n/a Negative - Negative POCT U NIT (test code = 3262) n/a Negative - Negative POCT U PROT (test code = 3259) neg Negative - Negative POCT U GLU (test code = 3256) neg Negative - Negative POCT U KETONE (test code = 3258) n/a Negative - Negative POCT U BLD (test code = 3257) n/a Negative - Negative [facility] SPECIFIC [id number] 21:04:00 Test Item Value Reference Range Interpretation Comments POCT PH U (test code = 3254) n/a 5-8 POCT U LEUK EST (test code = n/a Negative - Negative 3263) POCT U NIT (test code = 3262) n/a Negative - Negative POCT U PROT (test code = 3259) Negative Negative - Negative POCT U GLU (test code = 3256) normal Negative - Negative POCT U KETONE (test code = 3258) n/a Negative - Negative POCT U BLD (test code = 3257) n/a Negative - Negative [facility] ([id number] 18:15:19 Test Item Value Reference Range Interpretation Comments NA (test code = 134 mmol/L 135-145 L [id number]) K (test code = 4.0 mmol/L 3.5-5.0 [id number]) CL (test code = 104 mmol/L 98-108 [id number]) CO2 TOTAL (test code = 23 mmol/L 23-31 [id number]) AGAP (test code = 2-16 [id number]) BUN (test code = 8 mg/dL 7-23 7198314683) GLUCOSE (test code = 76 mg/dL 70-110 [id number]) CREATININE (test code = 0.56 mg/dL 0.50-1.04 [id number]) TOTAL BILI (test code = 1.3 mg/dL 0.1-1.1 H [id number]) CALCIUM (test code = 8.8 mg/dL 8.6-10.6 7969015271) T PROTEIN (test code = 6.9 g/dL 6.3-8.2 9662767127) ALBUMIN (test code = 3.7 g/dL 3.5-5.0 6362146900) ALK PHOS (test code = 122 U/L 34-122 9946711726) ALTv (test code = 15 U/L 5-35 1742-6) AST(SGOT) (test code = 25 U/L 13-40 8980353219) eGFR (test code = mL/min/1.73m2 9969254500) ELLYN (test code = ELLYN) Association of Glomerular Filtration Rate (GFR) and Staging of Kidney Disease* + --+ --+ ------+| GFR (mL/min/1.73 m2) ?| With Kidney Damage ?| ?Without Kidney Damage+ --------+ --------+ +| ?>90 ?| ?Stage one ?| ? Normal ?+ ---+ ---+ -------+| ?60-89 ?| ?Stage two ?| ? Decreased GFR ? + --+ --+ ------+| ?30-59 ?| ?Stage three ?| ? Stage three ? + --+ --+ ------+| ?15-29 ?| ?Stage four ? | ? Stage four ?+ ---+ ---+ -------+| ?<15 (or dialysis) ? ?| ?Stage five ? | ? Stage five ?+ ---+ ---+ -------+ *Each stage assumes the associated GFR level has been in effect for at least three months. ?Stages 1 to 5, with or without kidney disease, indicate chronic kidney disease. Notes: Determination of stages one and two (with eGFR >59mL/min/1.73 m2) requires estimation of kidney damage for at least three months as defined by structural or functional abnormalities of the kidney, manifested by either:Pathological abnormalities or Markers of kidney damage (including abnormalities in the composition of the blood or urine or abnormalities in imaging tests). Lab Interpretation Abnormal (test code = 06535-9) [id number] 18:15:19 Test Item Value Reference Range Interpretation Comments URIC ACID (test code = 2048248323) 4.0 mg/dL 2.9-6.0 Lab Interpretation (test code = Normal 67502-4) [facility] [id number] 18:13:18 Test Item Value Reference Range Interpretation Comments LDH (test code = 4125572070) 325 U/L 300-600 Lab Interpretation (test code = Normal 56664-8) [facility] W/O SPECIFIC [id number] 22:00:00 Test Item Value Reference Range Interpretation Comments POCT PH U (test code = 3254) n/a 5-8 POCT U LEUK EST (test code = n/a Negative - Negative 3263) POCT U NIT (test code = 3262) n/a Negative - Negative POCT U PROT (test code = 3259) trace Negative - Negative POCT U GLU (test code = 3256) negative Negative - Negative POCT U KETONE (test code = 3258) n/a Negative - Negative POCT U BLD (test code = 3257) n/a Negative - Negative [facility]"
[2022-02-19 10:15] LABS: SARS-COV-2 RT PCR NEGATIVE (NEGATIVE)
--- NOTE | 2022-02-19 10:53 | RAD REPORT ---
EXAM DESCRIPTION: RAD - Chest Single View - 02/19/2022 10:37 am CLINICAL HISTORY: Cough Chest pain. COMPARISON: Chest Single View dated 08/07/2020; Chest Single View dated 08/13/2016; CHEST PA AND LAT 2 VIEW dated 11/27/2014; CHEST PA AND LAT 2 VIEW dated 11/06/2014 FINDINGS: Portable technique limits examination quality. The lungs are grossly clear. The heart is upper limit of normal in size. No displaced fractures. IMPRESSION: No acute intrathoracic process suspected.
--- NOTE | 2022-02-19 10:55 | ER ---
Nurse's Notes [facility] Name: Ximena Zheng Age: 26 yrs Sex: Female : 1995 Arrival Date: 02/19/2022 Time: 09:19 Bed 17 Private MD: Diagnosis: Acute upper respiratory infection, unspecified Presentation: 02/19 09:22 Chief complaint: Patient states: Cough/congestion, fever, and diarrhea since Wednesday ll1 evening. Entire family is sick right now. Coronavirus screen: Vaccine status: Patient reports being unvaccinated. Client denies travel out of the [place] in the last 14 days. chills, congestion, diarrhea, fatigue, fever, headache, muscle pain, Client presents with at least one sign or symptom that may indicate coronavirus-19. Standard/surgical mask placed on the client. Ebola Screen: Patient denies travel to an Ebola-affected area in the 21 days before illness onset. Resp Distress? No respiratory distress is noted at this time. Initial Sepsis Screen: Does the patient meet any 2 criteria? No. Patient's initial sepsis screen is negative. Does the patient have a suspected source of infection? Yes: Productive cough/pneumonia. Risk Assessment: Do you want to hurt yourself or someone else? Patient reports no desire to harm self or others. Onset of symptoms was February 16, 2022. 09:22 Method Of Arrival: Ambulatory [facility] 09:22 Acuity: PEDRO 4 1 Triage Assessment: 09:23 General: Appears uncomfortable, ill, Behavior is calm, cooperative, appropriate for 1 age. Pain: Complains of pain in head Pain currently is 6 out of 10 on a pain scale. Quality of pain is described as aching, Pain began 2-3 days ago. EENT: Reports nasal congestion. Neuro: Reports headache weakness. Respiratory: Reports cough that is. Respiratory: Breath sounds are clear bilaterally. GI: Reports diarrhea. 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 - Social history:: Smoking status: Patient denies any tobacco usage or history of. Screenin:42 Abuse screen: Denies threats or abuse. Nutritional screening: No deficits noted. ll1 Tuberculosis screening: No symptoms or risk factors identified. 09:54 [facility] ED Fall Risk Assessment (Adult) Score/Fall Risk Level 0 - 2 = Low Risk ll1 Oriented to surroundings, Maintained a safe environment, Educated pt \T\ family on fall prevention, incl call for assistance when getting out of bed, Hourly rounding (assess needs \T\ fall precautionary measures) done. Assessment: 09:35 Reassessment: No changes from previously documented assessment. Patient and/or family ll1 updated on plan of care and expected duration. Pain level reassessed. Patient is alert, oriented x 3, equal unlabored respirations, skin warm/dry/pink. 10:40 Reassessment: No changes from previously documented assessment. Patient and/or family ll1 updated on plan of care and expected duration. Pain level reassessed. Patient is alert, oriented x 3, equal unlabored respirations, skin warm/dry/pink. Cardiovascular: Capillary refill < 3 seconds. Respiratory: Airway is patent. 11:01 Reassessment: No changes from previously documented assessment. Patient and/or family ll1 updated on plan of care and expected duration. Pain level reassessed. Patient is alert, oriented x 3, equal unlabored respirations, skin warm/dry/pink. Vital Signs: 09:22 BP 137 / 97; Pulse 86; Resp 18; Pulse Ox 98% on R/A; Weight 134.26 kg; Height 5 ft. 5 ll1 in. (165.10 cm); Pain 6/10; 10:40 Temp 98.5(O); ll1 11:01 BP 146 / 105; Pulse 85; Resp 17; Pulse Ox 98% ; ll1 09:22 Body Mass Index 49.26 (134.26 kg, 165.10 cm) ll1 ED Course: 09:19 Patient arrived in ED. mr 09:19 Nova Baker FNP-C is [facility]. kb 09:19 Prasanna Felix MD is Attending Physician. kb 09:20 Arm band placed on Patient placed in an exam room, on a stretcher. ll1 09:27 Monster Lantigua RN is Primary Nurse. ll1 09:28 COVID-19/FLU A+B/RSV Sent. ll1 09:41 Triage completed. ll1 09:53 Patient has correct armband on for positive identification. Bed in low position. Call ll1 light in reach. Cardiac monitoring not applicable on this patient. 09:53 No provider procedures requiring assistance completed. Patient did not have IV access ll1 during this emergency room visit. 10:39 Chest Single View XRAY In Process Unspecified. EDMS Administered Medications: No medications were administered Medication: :53 VIS not applicable for this client. ll1 Outcome: 10:54 Discharge ordered by MD. salguero 11:02 Discharged to home ambulatory. ll1 11:02 Condition: stable 11:02 Discharge instructions given to patient, Instructed on discharge instructions, follow up and referral plans. Demonstrated understanding of instructions, follow-up care. 11:02 Patient left the ED. ll1 Signatures: Dispatcher [employer] EDNova Thompson, CUSTOMS HOUSE BROKER-C CUSTOMS HOUSE BROKER-Ckb Lynn Sullivan Monster Lantigua, RN RN ll1 Corrections: (The following items were deleted from the chart) 09:39 09:38 Immunization history: Client reports having NOT received the Covid vaccine. ll1 ll1 09:39 09:38 Social history: Smoking status: Patient denies any tobacco usage or history of. ll1 ll1
--- NOTE | 2022-02-19 10:55 | EDPHYS ---
Physician Documentation [facility] Name: Ximena Zheng Age: 26 yrs Sex: Female : 1995 Arrival Date: 02/19/2022 Time: 09:19 Bed 17 Private MD: ED Physician Prasanna Felix HPI: 02/19 09:49 This 26 yrs old Female presents to ER via Ambulatory with complaints of Congestion, kb Cough. 09:49 The patient or guardian reports cough, that is intermittent, described as mild, flu kb symptoms, low-grade fever. Onset: The symptoms/episode began/occurred 4 day(s) ago. Severity of symptoms: At their worst the symptoms were moderate, in the emergency department the symptoms are unchanged. Modifying factors: The symptoms are alleviated by nothing, the symptoms are aggravated by nothing. Associated signs and symptoms: Pertinent positives: diarrhea, fever, rhinorrhea, Pertinent negatives: chest pain, ear ache, nausea, sore throat, vomiting. The patient has not experienced similar symptoms in the past. The patient has not recently seen a physician. Pt reports cough, congestion, fever and diarrhea that started on Wednesday. Has been taking Mucinex without relief. 3 kids at home are sick as well. 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 - Social history:: Smoking status: Patient denies any tobacco usage or history of. ROS: 09:47 ENT: Positive for rhinorrhea, sinus congestion. kb 09:47 Respiratory: Positive for cough, Negative for dyspnea on exertion, hemoptysis, orthopnea, pleurisy, shortness of breath, sputum production, wheezing. 09:47 Abdomen/GI: Positive for diarrhea, Negative for abdominal pain, nausea and vomiting. 09:47 All other systems are negative. 09:48 Neuro: Negative for headache, weakness, numbness, tingling, and seizure. kb 09:48 Constitutional: Positive for fever. 10:17 Cardiovascular: Positive for chest pain, with cough. kb Exam: 09:47 Constitutional: This is a well developed, well nourished patient who is awake, alert, kb and in no acute distress. Head/Face: Normocephalic, atraumatic. ENT: Moist Mucous membranes Cardiovascular: Regular rate and rhythm with a normal S1 and S2. No gallops, murmurs, or rubs. No pulse deficits. Respiratory: Respirations even and unlabored. No increased work of breathing. Talking in full sentences Abdomen/GI: Soft, non-tender. No distention Skin: Warm, dry with normal turgor. Normal color. MS/ Extremity: Pulses equal, no cyanosis. Neurovascular intact. Full, normal range of motion. Neuro: Awake and alert, GCS 15, oriented to person, place, time, and situation. Moves all extremities. Normal gait. Psych: Awake, alert, with orientation to person, place and time. Behavior, mood, and affect are within normal limits. Vital Signs: 09:22 BP 137 / 97; Pulse 86; Resp 18; Pulse Ox 98% on R/A; Weight 134.26 kg; Height 5 ft. 5 ll1 in. (165.10 cm); Pain 6/10; 10:40 Temp 98.5(O); ll1 11:01 BP 146 / 105; Pulse 85; Resp 17; Pulse Ox 98% ; ll1 09:22 Body Mass Index 49.26 (134.26 kg, 165.10 cm) ll1 MDM: 09:21 Patient medically screened. kb 09:47 Data reviewed: vital signs, nurses notes. Data interpreted: Pulse oximetry: on room air kb is 98 %. Interpretation: normal. 10:54 Counseling: I had a detailed discussion with the patient and/or guardian regarding: the kb historical points, exam findings, and any diagnostic results supporting the discharge/admit diagnosis, lab results, radiology results, the need for outpatient follow up, a family practitioner, to return to the emergency department if symptoms worsen or persist or if there are any questions or concerns that arise at home. 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 I agree with assessment [id number] and care plan and confirm the diagnosis (es) above. Attestation: The patient's history, exam findings, diagnostics, and a summary of any interventions or procedures was reviewed in detail with Nova MCKINNEY. Disposition Summary: 02/19/22 10:54 Discharge Ordered Location: Home kb Condition: Stable kb Diagnosis - Acute upper respiratory infection, unspecified kb Followup: kb - With: Emergency Department - When: As needed - Reason: Worsening of condition Followup: kb - With: Private Physician - When: 2 - 3 days - Reason: Recheck today's complaints, Continuance of care, Re-evaluation by your physician Discharge Instructions: - Discharge Summary Sheet kb - Upper Respiratory Infection, Adult, Ytri-[id number] kb - Viral Respiratory Infection, [id number]-[id number] kb Forms: - Medication Reconciliation Form kb - Thank You Letter kb - Antibiotic Education kb - Prescription Opioid Use kb - Work release form [facility] Signatures: Dispatcher [employer] Nova Cisse FNP-C FNP-Monster Milton RN RN [facility] Prasanna Felix MD MD [email or web address] Corrections: (The following items were deleted from the chart) 09:39 09:38 Immunization history: Client reports having NOT received the Covid vaccine. [place] [id number] 09:39 09:38 Social history: Smoking status: Patient denies any tobacco usage or history of. [place] [id number] 09:48 09:47 Constitutional: Negative for fever, chills, and weight loss, kb kb
[2022-02-19 11:09] VITALS: O2SAT 98
[2022-02-19 11:13] VITALS: TEMP 98.5
[2022-02-19 11:17] VITALS: BP 146/105
== END 2022-02-19 11:02 | disposition home or self-care (01) ==
LOC: ER 09:16
DX: J06.9 Acute upper respiratory infection, unspecified (principal); Z20.822 Contact with and (suspected) exposure to COVID-19
CPT/HCPCS: 0241U; 71045; 99283

== ENCOUNTER 2022-09-30 11:25 | Emergency (ER) | payer OTHER ==
--- OUTSIDE RECORDS SUMMARY | 2022-09-30 11:31 | XMS REPORT | Continuity of Care Document ---
:1995 Author Organization [facility] t Address [address] [place] [address] Care Team Providers Name Role Phone PCP, PATIENT DOES NOT HAVE A Primary Care Physician UnavailANNETTA Eaton Attending Clinician Unavailable REBECCA CURIEL Attending Clinician Unavailable Rebecca Curiel MD Attending Clinician George Monreal MD Attending Clinician GEORGE MONREAL Attending Clinician Unavailable Only, Adc Test Attending Clinician Unavailable Pob, Adc Lab Main Attending Clinician Unavailable MELQUIADES CHAUDHRY Attending Clinician Unavailable MELQUIADES CHAUDHRY Attending Clinician Unavailable Doctor Unassigned, [place] Attending Clinician Unavailable Ultrasound, Ang-Mfm Attending Clinician Unavailable Mark Anthony Padron MD Attending Clinician [phone] MARK ANTHONY PADRON Attending Clinician Unavailable Ultrasound, Adc Mfm Attending Clinician Unavailable Evin Woods DO Attending Clinician Pcp, Patient Does Not Have A Attending Clinician [phone] Poornima LEIGH Attending Clinician Unavailable Poornima Crabtree Attending Clinician ELSY GARCIA Attending Clinician Unavailable Elsy Garcia DO Attending Clinician LYNN SULTANA Attending Clinician Unavailable Janet Madrigal Attending Clinician AkinEsther Sweet Attending Clinician [phone] ISIDRA RASMUSSEN Attending Clinician Unavailable TRACEY ZUÑIGA Attending Clinician Unavailable GEORGE MONREAL Admitting Clinician Unavailable George Monreal MD Admitting Clinician REBECCA CURIEL Admitting Clinician Unavailable ELSY GARCIA Admitting Clinician Unavailable Payers Payer Name Policy Type Policy Number Effective Date Expiration Date Sanjuana NEVES II [id number] 2020 00:00:00 [place] [id number] 2021 00:00:00 [facility] [id number] 2021 2021 00:00:00 00:00:00 Problems Condition Condition Condition Status Onset Resolution Last Treating Co mments Source Name Details Category Date Date Treatment Clinician Date Liveborn Liveborn Disease Active Unive rs , of , of 7-13 it y of man[place] born in born in [facility] by vaginal by vaginal delivery delivery 38 weeks 38 weeks Disease Active Unive rs gestation gestation 7-11 ity of of of 00:00: [place] 00 [facility] Supervisio Supervisio Disease Active 2020-03 U darrell n of high n of high 2-02 ity of risk risk 00:00: [place] 00 [facility] in third in third Branch trimester trimester Chronic Chronic Disease Active 2020-03 Univers hypertensi hypertensi 2-02 it y of on on 00:00: [place] affecting affecting 00 [facility] Bran ch Bariatric Bariatric Disease Active 2020-03 Uni vers surgery surgery 2-02 ity of status status 00:00: [place] complicati complicati 00 Me dical ng ng [place] , , third third trimester trimester Obesity [...] on Formattin ity of g of this [place] note Medical might be Branch different from the original. during and after gastric sleeve surgery Allergies, Adverse Reactions, Alerts Allergy Allergy Status Severity Reaction(s) Onset Inactive Treating Comm ents Source Name Type Date Date Clinician NO KNOWN Drug Active Univers ALLERGIE Class ity of S [facility] Social History Social Habit Start Date Stop Date Quantity Comments Source ASSERTION 2020-12-26 University of 00:00:00 [facility] Branch History of 2015-05-13 Cigarette Smoker Universi ty of tobacco use 00:00:00 [place] [facility] History [facility] University o f Alcohol Frequency [place] [facility] ed[facility] Branch History [facility] University o f Alcohol Std [place] Medical Drinks Branch History [facility] o f Alcohol Binge [place] Medic al Branch Exposure to 2022-04-18 2022-04-28 Not sure [place] of SARS-CoV-2 00:00:00 08:29:00 [facility] (event) Branch Alcohol intake 2022-04-28 2022-04-28 Ex-drinker University of 00:00:00 00:00:00 (finding) [facility] Tobacco use and 2021-10-29 2021-10-29 Smokeless tobacco Un iversity of exposure 00:00:00 00:00:00 non-user [facility] Tobacco Comment 2021-10-29 2021-10-29 smokes 6 x per Unive rsity of 00:00:00 00:00:00 day [facility] Education 2021-09-09 2021-09-09 13 University of 00:00:00 00:00:00 [facility] Alcohol Comment 2015-08-22 2015-08-22 socially Universit y of 00:00:00 00:00:00 [facility] Sex Ass[birth year] At [birth year] Universit y of 00:00:00 00:00:00 [facility] Smoking Status Start Date Stop Date Source Ex-smoker 2021-10-29 00:00:00 2021-10-29 00:00:00 [facility] [place] Medications Ordered Filled Start Stop Current Ordering Indication Dosage Frequency Signature Comments Components Source Medication Medication Date Date Medication? Clinician (SIG) Name Name amLODIPine Yes [id number] 5mg Take 1 U nivers 5 mg tablet 8-03 tablet by ity of 00:00: mouth in [place] the Medical morning. Branch amLODIPine Yes [id number] 5mg Take 1 U nivers 5 mg tablet 8-03 tablet by ity of 00:00: mouth in [place] the Medical morning. Branch amLODIPine Yes [id number] 5mg Take 1 U nivers 5 mg tablet 8-03 tablet by ity of 00:00: mouth in [place] the morning. Branch amLODIPine Yes [id number] 5mg Take 1 U nivers 5 mg tablet 8-03 tablet by ity of 00:00: mouth in [place] the morning. Branch amLODIPine Yes [id number] 5mg Take 1 U nivers 5 mg tablet 8-03 tablet by ity of 00:00: mouth in [place] the morning. Branch amLODIPine Yes [id number] 5mg Take 1 U nivers 5 mg tablet 8-03 tablet by ity of 00:00: mouth in [place] the Medical morning. Branch ferrous 2021- No Take by [facility] s sulfate 09-10 mouth. ity of (IRON ORAL) 08:10: 00:00 [place] 58 :00 Medical Branch CALCIUM 2021-2021- [facility] mouth. ity of 08:10: 00:00 [place] 58 :00 [facility] Branch aspirin 81 2021-2021- No 81mg Take 81 mg Univers mg EC 09-10 by mouth ity of tablet 08:10: 00:00 daily. [place] 58 :00 [facility] Branch 0 Yes [id number] 1{tbl} Take 1 Univers vitamin - 102 tablet by ity of w/FA tablet 00:00: mouth in [facility] the Medical morning. Branch docusate Yes [id number] 200mg Take 2 Univers 100 mg 7-13 102 capsules ity of capsule 00:00: by mouth [place] 00 once daily Medical as needed Branch for Constipati on. ferrous 2021-0 Yes [id number] 325mg Take 1 Univers sulfate 325 7-13 102 tablet by ity of mg (65 mg 00:00: [place] iron[place] 00 the Medical tablet morning Branch and 1 tablet in the evening. ibuprofen 0 Yes [id number] 600mg Take 1 Univers 600 mg 7-13 102 tablet by ity of tablet 00:00: mouth [place] 00 every 6 Medical (six) Branch hours as needed (Pain). Take with food or milk. 0 Yes [id number] 1{tbl} Take 1 Univers vitamin 7-13 102 tablet by ity of w/FA tablet 00:00: mouth in [place] 00 the Medical morning. Branch docusate Yes [id number] 200mg Take 2 Univers 100 mg 7-13 102 capsules ity of capsule 00:00: by mouth [place] 00 once daily Medical as needed Branch for Constipati on. ferrous Yes [id number] 325mg Take 1 Univers sulfate 325 7-13 102 tablet by ity of mg (65 mg 00:00: [place] iron[place] 00 the Medical tablet morning Branch and 1 tablet in the evening. ibuprofen 0 Yes [id number] 600mg Take 1 Univers 600 mg 7-13 102 tablet by ity of tablet 00:00: mouth [place] 00 every 6 Medical (six) Branch hours as needed (Pain). Take with food or milk. 2021-0 Yes [id number] 1{tbl} Take 1 Univers vitamin 7-13 102 tablet by ity of w/FA tablet 00:00: mouth in [place] 00 the Medical morning. Branch docusate 0 Yes [id number] 200mg Take 2 Univers 100 mg 7-13 102 capsules ity of capsule 00:00: by mouth [place] 00 once daily Medical as needed Branch for Constipati on. ferrous 2021-0 Yes [id number] 325mg Take 1 Univers sulfate 325 7-13 102 tablet by ity of mg (65 mg 00:00: [place] iron[place] 00 the Medical tablet morning Branch and 1 tablet in the evening. ibuprofen 2021-0 Yes [id number] 600mg Take 1 Univers 600 mg 7-13 102 tablet by ity of tablet 00:00: mouth [place] 00 every 6 Medical (six) Branch hours as needed (Pain). Take with food or milk. 2021-0 Yes [id number] 1{tbl} Take 1 Univers vitamin 7-13 102 tablet by ity of w/FA tablet 00:00: mouth in [place] 00 the Medical morning. Branch docusate 2021- Yes [id number] 200mg Take 2 Univers 100 mg 7-13 102 capsules ity of capsule 00:00: by mouth [place] 00 once daily Medical as needed Branch for Constipati on. ferrous Yes [id number] 325mg Take 1 Univers sulfate 325 7-13 102 tablet by ity of mg (65 mg 00:00: mouth [place] iron[place] 00 the Medical tablet morning Branch and 1 tablet in the evening. ibuprofen Yes [id number] 600mg Take 1 Univers 600 mg 7-13 102 tablet by ity of tablet 00:00: mouth [place] 00 every 6 Medical (six) Branch hours as needed (Pain). Take with food or milk. 2021-0 Yes [id number] 1{tbl} Take 1 Univers vitamin 7-13 102 tablet by ity of w/FA tablet 00:00: mouth in [place] 00 the Medical morning. Branch ferrous 2021-0 Yes [id number] 325mg Take 1 Univers sulfate 325 7-13 102 tablet by ity of mg (65 mg 00:00: [place] iron[place] 00 the Medical tablet morning Branch and 1 tablet in the evening. 2021-0 Yes [id number] 1{tbl} Take 1 Univers vitamin 7-13 102 tablet by ity of w/FA tablet 00:00: mouth in [place] 00 the Medical morning. Branch ferrous 2021-0 Yes [id number] 325mg Take 1 Univers sulfate 325 7-13 102 tablet by ity of mg (65 mg 00:00: [place] iron[place] 00 the Medical tablet morning Branch and 1 tablet in the evening. 2021-0 Yes [id number] 1{tbl} Take 1 Univers vitamin 7-13 102 tablet by ity of w/FA tablet 00:00: mouth in [place] 00 the Medical morning. Branch ferrous 2021-0 Yes [id number] 325mg Take 1 Univers sulfate 325 7-13 102 tablet by ity of mg (65 mg 00:00: [place] iron[place] 00 the Medical tablet morning Branch and 1 tablet in the evening. Yes [id number] 1{tbl} Take 1 Univers vitamin 09-10 102 tablet by ity of w/FA tablet 00:00: mouth in [place] 00 the Medical morning. Branch ferrous Yes [id number] 325mg Take 1 Univers sulfate 325 09-10 102 tablet by ity of mg (65 mg 00:00: [place] iron[place] 00 the Medical tablet morning Branch and 1 tablet in the evening. docusate 2021- No [id number] 200mg Take 2 Univers 100 mg 09-10 102 capsules ity of capsule 00:00: 00:00 by mouth [place] 00 :00 once daily Medical as needed Branch for Constipati on. ibuprofen 2021- No [id number] 600mg Take 1 Univers 600 mg 09-10 [...] 18:00: [place] 39 on Replaced By [facility] 09/09/21 at Branch 1300, Until Discontinu ed, Routine, rectal/hem orrhoidal pain HYDROcodone Yes 1{tbl} 1 tablet, Univers -acetaminop 7-12 Oral, ity of hen (NORCO 18:00: Q6HPRN, [place] 5) 5-325 mg 39 Starting Medi delma tablet 1 on Branch tablet 09/09/21 at 1300, Until Discontinu ed, Routine, Pain (scale 7-10) ibuprofen Yes 600mg 600 mg, Univ ers (IBU) 7-12 Oral, ity of tablet 600 18:00: Q6HPRN, [place] mg 39 Starting Medical on Replaced By [facility] Branch 09/09/21 at 1300, Until Discontinu ed, Routine, Pain (scale 4-6) acetaminoph 202-0 Yes 650mg 650 mg, Un eddi en 7-12 Oral, ity of (TYLENOL) 18:00: Q6HPRN, [place] tablet 650 39 Starting Medic al mg on [facility] 09/09/21 at 1300, Until Discontinu ed, Routine, Pain (scale 1-3) diphenhydrA 202-0 Yes 25mg 25 mg, Univ ers MINE 09-09 Oral, ity of (BENADRYL) 18:00: Q6HPRN, [place] tablet 25 39 Starting Medica l mg on [facility] 09/09/21 at 1300, Until Discontinu ed, Routine, Sleep, Itching ondansetron 2021-0 Yes 4mg 4 mg, Slow Univers (ZOFRAN 09-09 IV Push, ity of (PF)) 18:00: Q8HPRN, [place] injection 4 39 Starting Medi delma mg on [facility] 09/09/21 at 1300, Until Discontinu ed, Routine, Nausea and Vomiting (N/V) simethicone 2021-0 Yes 160mg 160 mg, Un eddi (GAS RELIEF 09-09 Oral, ity of (SIMETHICON 18:00: PC+HSPRN, [place] E)) 39 Starting Medical chewable on [facility] tablet 160 09/09/21 at mg 1300, Until Discontinu ed, Routine, Gas docusate 2021-0 Yes 200mg 200 mg, Unive rs (COLACE) 09-09 Oral, ity of capsule 200 18:00: [facility], [place] mg 39 Starting Medical on Replaced By [facility] Branch 09/09/21 at 1300, Until Discontinu ed, Routine, Constipati on magnesium 2021-0 Yes 30mL 30 mL, Univer s hydroxide 09-09 Oral, ity of (MILK OF 18:00: QDAILYPRN, [place] as MAGNESIA) 39 Starting Medica l 400 mg/5 mL on [facility] suspension 09/09/21 at 30 mL 1300, Until Discontinu ed, Routine, Constipati on benzocaine- 2021-0 Yes Topical, Un eddi menthol 09-09 PRN, [...] No 25mg 25 mg, IV Univers e 09-09 Piggyback, ity of (PHENERGAN) 09:31: 18:00 Q4HPRN, [place] 25 mg in 43 :45 Starting Medical NaCl 0.9% on Wed Branch (NS) 50 mL 09/09/21 at IV 0431, piggyback Until Wed09/09/21 at 1300, Routine, Nausea and Vomiting (N/V) oxytocin 2021-0 2021- No 2mU/min at 2-40 Un eddi (PITOCIN) 09-09 07-12 mL/hr, IV ity of 30 units in 09:31: 18:00 Infusion, [facility] 500 mL 43 :45 TITRATE, Medica l IV infusion Starting Bran ch on Wed09/09/21 at 0431, Until Wed09/09/21 at 1300, FABIO ferrous 2021-0 Yes Take by Univers sulfate 5-24 mouth. ity of (IRON ORAL) 16:08: [address] CALCIUM 2021-0 Yes Take by Univers ORAL 5-24 mouth. ity of 16:08: [address] aspirin 81 2021-0 Yes 81mg Take 81 mg U nivers mg EC 5-24 by mouth ity of tablet 16:08: daily. [address] ferrous 2021-0 Yes Take by Univers sulfate 5-24 mouth. ity of (IRON ORAL) 16:08: [address] CALCIUM 2021-0 Yes Take by Univers ORAL 5-24 mouth. ity of 16:08: [address] aspirin 81 2021-0 Yes 81mg Take 81 mg U nivers mg EC 5-24 by mouth ity of tablet 16:08: daily. [address] ferrous 2021-0 Yes Take by Univers sulfate 5-24 mouth. ity of (IRON ORAL) 16:08: [address] CALCIUM 2021-0 Yes Take by Univers ORAL 5-24 mouth. ity of 16:08: [address] aspirin 81 2021-0 Yes 81mg Take 81 mg U nivers mg EC 5-24 by mouth ity of tablet 16:08: daily. [address] ferrous 202-0 Yes Take by Univers sulfate 5-24 mouth. ity of (IRON ORAL) 16:08: [address] CALCIUM 2021-0 Yes Take by Univers ORAL 5-24 mouth. ity of 16:08: [address] aspirin 81 2021-0 Yes 81mg Take 81 mg U nivers mg EC 5-24 by mouth ity of tablet 16:08: daily. [address] ferrous 202-0 Yes Take by Univers sulfate 5-24 mouth. ity of (IRON ORAL) 16:08: [address] CALCIUM 2021-0 Yes Take by Univers ORAL 5-24 mouth. ity of 16:08: [address] aspirin 81 2021-0 Yes 81mg Take 81 mg U nivers mg EC 5-24 by mouth ity of tablet 16:08: daily. [address] ferrous 202-0 Yes Take by Univers sulfate 5-24 mouth. ity of (IRON ORAL) 16:08: [address] CALCIUM 2021-0 Yes Take by Univers ORAL 5-24 mouth. ity of 16:08: [address] aspirin 81 2021-0 Yes 81mg Take 81 mg U nivers mg EC 5-24 by mouth ity of tablet 16:08: daily. [address] ferrous 2021-0 Yes Take by Univers sulfate 5-24 mouth. ity of (IRON ORAL) 16:08: [address] CALCIUM 2021-0 Yes Take by Univers ORAL 5-24 mouth. ity of 16:08: [address] aspirin 81 2021-0 Yes 81mg Take 81 mg U nivers mg EC 5-24 by mouth ity of tablet 16:08: daily. [address] ferrous 2021-0 Yes Take by Univers sulfate 5-24 mouth. ity of (IRON ORAL) 16:08: [address] CALCIUM 2021-0 Yes Take by Univers ORAL 5-24 mouth. ity of 16:08: [address] aspirin 81 2021-0 Yes 81mg Take 81 mg U nivers mg EC 5-24 by mouth ity of tablet 16:08: daily. [address] metroNIDAZO 0 Yes 500mg 500 mg, Un eddi LE (FLAGYL) 5-12 Oral, ity of tablet 500 18:15: Q12H, [place] mg 00 First dose Medical on [place] Branch 07/10/21 at 1315, Until Discontinu ed, Routine
Reason for Anti-Infec tive: Documented Infection< br>Documen stefany Infection Site: Pelvic
Duration of Therapy: 7 days ferrous 2021-0 Yes Take by Univers sulfate 5-12 mouth. ity of (IRON ORAL) 13:45: [address] CALCIUM 2021-0 Yes Take by Univers ORAL 5-12 mouth. ity of 13:45: [address] Branch aspirin 81 2021-0 Yes 81mg Take 81 mg U nivers mg EC 5-12 by mouth ity of tablet 13:45: daily. [address] Branch proMETHazin 2021-0 Yes [id number] 25mg Take 1 Univers e 25 mg 5-12 tablet by ity of tablet 00:00: mouth [place] 00 every 6 Medical (six) Branch hours as needed for Nausea and Vomiting (N/V). proMETHazin 2021-0 Yes [id number] 25mg Take 1 Univers e 25 mg 5-12 tablet by ity of tablet 00:00: mouth [place] 00 every 6 Medical (six) Branch hours as needed for Nausea and Vomiting (N/V). proMETHazin 2021-0 Yes [id number] 25mg Take 1 Univers e 25 mg 5-12 tablet by ity of tablet 00:00: mouth [place] 00 every 6 Medical (six) Branch hours as needed for Nausea and Vomiting (N/V). proMETHazin 2021-0 Yes [id number] 25mg Take 1 Univers e 25 mg 5-12 tablet by ity of tablet 00:00: mouth [place] 00 every 6 Medical (six) Branch hours as needed for Nausea and Vomiting (N/V). proMETHazin 2021-0 Yes [id number] 25mg Take 1 Univers e 25 mg 5-12 tablet by ity of tablet 00:00: mouth [place] 00 every 6 Medical (six) Branch hours as needed for Nausea and Vomiting (N/V). proMETHazin 2021-0 Yes [id number] 25mg Take 1 Univers e 25 mg 5-12 tablet by ity of tablet 00:00: mouth [place] 00 every 6 Medical (six) Branch hours as needed for Nausea and Vomiting (N/V). proMETHazin 2021-0 Yes [id number] 25mg Take 1 Univers e 25 mg 5-12 tablet by ity of tablet 00:00: mouth [place] 00 every 6 Medical (six) Branch hours as needed for Nausea and Vomiting (N/V). metroNIDAZO 2021-0 Yes [id number] 500mg Take 1 Univers LE 500 mg 5-12 tablet by ity o f tablet 00:00: mouth [place] 00 every 12 Medical (twelve) Branch hours. proMETHazin 2021-0 Yes [id number] 25mg Take 1 Univers e 25 mg 5-12 tablet by ity of tablet 00:00: mouth [place] 00 every 6 Medical (six) Branch hours as needed for Nausea and Vomiting (N/V). proMETHazin 2021- No [id number] 25mg Take 1 Univers e 25 mg 07-10 07-13 tablet by ity of tablet 00:00: 00:00 mouth [place] 00 :00 every 6 Medical (six) Branch hours as needed for Nausea and Vomiting (N/V). metroNIDAZO 2021- No [id number] 500mg Take 1 Univers LE 500 mg 07-10 05-24 tablet by ity of tablet 00:00: 00:00 mouth [place] 00 :00 every 12 Medical (twelve) Branch hours. ferrous Yes [id number] 325mg Take 1 Un eddi sulfate 325 5-06 tablet by ity of mg (65 mg 00:00: mouth [place] iron) 00 daily. Medical tablet Branch ferrous Yes [id number] 325mg Take 1 Un eddi sulfate 325 5-06 tablet by ity of mg (65 mg 00:00: mouth [place] iron) 00 daily. Medical tablet Branch ferrous Yes [id number] 325mg Take 1 Un eddi sulfate 325 5-06 tablet by ity of mg (65 mg 00:00: mouth [place] iron) 00 daily. Medical tablet Branch ferrous Yes [id number] 325mg Take 1 Un eddi sulfate 325 5-06 tablet by ity of mg (65 mg 00:00: mouth [place] iron) 00 daily. Medical tablet Branch ferrous Yes [id number] 325mg Take 1 Un eddi sulfate 325 5-06 tablet by ity of mg (65 mg 00:00: mouth [place] iron) 00 daily. Medical tablet Branch ferrous Yes [id number] 325mg Take 1 Un eddi sulfate 325 5-06 tablet by ity of mg (65 mg 00:00: mouth [place] iron) 00 daily. Medical tablet Branch ferrous Yes [id number] 325mg Take 1 Un eddi sulfate 325 5-06 tablet by ity of mg (65 mg 00:00: mouth [place] iron) 00 daily. Medical tablet Branch ferrous Yes [id number] 325mg Take 1 Un eddi sulfate 325 5-06 tablet by ity of mg (65 mg 00:00: mouth [place] iron) 00 daily. Medical tablet Branch ferrous Yes [id number] 325mg Take 1 Un eddi sulfate 325 5-06 tablet by ity of mg (65 mg 00:00: mouth [place] iron) 00 daily. Medical tablet Branch ferrous 0 Yes [id number] 325mg Take 1 Un eddi sulfate 325 5-06 tablet by ity of mg (65 mg 00:00: mouth [place] iron) 00 daily. Medical tablet Branch ferrous 0 Yes [id number] 325mg Take 1 Un eddi sulfate 325 5-06 tablet by ity of mg (65 mg 00:00: mouth [place] iron) 00 daily. Medical tablet Branch ferrous Yes [id number] 325mg Take 1 Un eddi sulfate 325 5-06 tablet by ity of mg (65 mg 00:00: mouth [place] iron) 00 daily. Medical tablet Branch ferrous 202- No [id number] 325mg Take 1 U nivers sulfate 325 [...] Kit 00:00: [place] Medical Branch blood sugar 0 Yes Use [...] f 00:00: [place] 00 Medical Branch Blood-Gluco 2022-0 Yes Use as Univ ers se Meter [...] f 00:00: [place] 00 Medical Branch Blood-Gluco 2-0 Yes Use as Univ ers se Meter [...] strip 00:00: [place] 00 Medical Branch Alcohol 202-0 Yes Apply to Univer s Swabs PadM 4-22 area(s) 4 ity of 00:00: (four) [place] 00 times Medical daily. Branch lancets 28 2021-0 Yes Use as Unive rs gauge Misc 4-22 directed ity o f 00:00: [place] 00 Medical Branch ferrous 2021-0 Yes [id number] 325mg Take 1 Un eddi sulfate 325 4-22 tablet by ity of mg (65 mg 00:00: mouth [place] iron) 00 daily. Medical tablet Branch Blood-Gluco 2021-0 Yes Use as Univ [...] 00:00: [place] 00 Medical Branch Blood-Gluco 2021-0 2021- No Use as Uni vers se Meter 4-22 07-13 directed ity of Kit 00:00: 00:00 [place] 00 :00 Medical Branch blood sugar 2021- No Use as Uni vers diagnostic 06-20 directed ity of strip 00:00: 00:00 [place] 00 :00 Medical Branch Alcohol 2021-0 2021- No Apply to Unive rs Swabs PadM 06-20 area(s) 4 ity of 00:00: 00:00 (four) [place] 00 :00 times Medical daily. Branch lancets 28 2021- No Use as Univ ers gauge Misc 06-20 directed ity of 00:00: 00:00 [place] 00 :00 Medical Branch ferrous 2021- No [id number] 325mg Take 1 U nivers sulfate 325 06-20 tablet by it y of mg (65 mg 00:00: 00:00 mouth [place] iron) 00 :00 daily. Medical [facility] Branch CALCIUM Yes Take by Univers ORAL 3-02 mouth. ity of 15:33: [place] [address] Medical Branch CALCIUM Yes Take by Univers ORAL 3-02 mouth. ity of 15:33: [place] [address] Medical [place] CALCIUM Yes Take by Univers ORAL 3-02 mouth. ity of 15:33: [place] [address] Medical [place] CALCIUM Yes Take by Univers ORAL 3-02 mouth. ity of 15:33: [place] [address] Medical Branch CALCIUM Yes Take by Univers ORAL 3-02 mouth. ity of 15:33: [address] aspirin 81 0 Yes 81mg Take 81 mg U nivers mg EC 1-27 by mouth ity of tablet 17:14: daily. [address] aspirin 81 0 Yes 81mg Take 81 mg U nivers mg EC 1-27 by mouth ity of tablet 17:14: daily. [address] aspirin 81 0 Yes 81mg Take 81 mg U nivers mg EC 1-27 by mouth ity of tablet 17:14: daily. [place] [address] Medical [place] aspirin 81 2021-0 Yes 81mg Take 81 mg U nivers mg EC 1-27 by mouth ity of tablet 17:14: daily. [address] aspirin 81 0 Yes 81mg Take 81 mg U nivers mg EC 1-27 by mouth ity of tablet 17:14: daily. [place] 13 [facility] Blood 2020- Yes Use as Univers Pressure 2-13 directed ity of Monitor Kit 00:00: [place] 00 Medical Branch Blood 2020- Yes Use as Univers Pressure 2-13 directed ity of Monitor Kit 00:00: [place] Medical Branch Blood 2020- Yes Use as Univers Pressure 2-13 directed ity of Monitor Kit 00:00: [place] 00 Medical Branch Blood 2020- Yes Use as Univers Pressure 2-13 directed ity of Monitor Kit 00:00: [place] Medical Branch Blood 2020- Yes Use as Univers Pressure 2-13 directed ity of Monitor Kit 00:00: [place] 00 [facility] Branch Blood 2020- Yes Use as Univers Pressure 2-13 directed ity of Monitor Kit 00:00: [place] 00 Medical Branch Blood 2020- Yes Use as Univers Pressure 2-13 directed ity of Monitor Kit 00:00: [place] 00 Medical Branch Blood 2020- Yes Use as Univers Pressure 2-13 directed ity of Monitor Kit 00:00: [place] 00 Medical Branch Blood 2020- Yes Use as Univers Pressure 2-13 directed ity of Monitor Kit 00:00: [place] 00 Medical Branch Blood 202- Yes Use as Univers Pressure 2-13 directed ity of Monitor Kit 00:00: [place] 00 Medical Branch Blood 2020- Yes Use as Univers Pressure 2-13 directed ity of Monitor Kit 00:00: [place] 00 Medical Branch Blood 2020- Yes Use as Univers Pressure 2-13 directed ity of Monitor Kit 00:00: [place] 00 Medical Branch Blood 202- Yes Use as Univers Pressure 2-13 directed ity of Monitor Kit 00:00: [place] 00 Medical Branch Blood 202- Yes Use as Univers Pressure 2-13 directed ity of Monitor Kit 00:00: [place] 00 Medical Branch Blood 202- 2022- No Use as Univers Pressure 2-13 07-13 directed ity of Monitor Kit 00:00: 00:00 [place] 00 :00 [facility] ferrous 202- Yes Take by Univers sulfate 2-06 mouth. ity of (IRON ORAL) 13:46: [address] ferrous 2020- Yes Take by Univers sulfate 2-06 mouth. ity of (IRON ORAL) 13:46: [address] ferrous 2020- Yes Take by Univers sulfate 2-06 mouth. ity of (IRON ORAL) 13:46: [address] ferrous 2020-03 Yes Take by Univers sulfate 2-06 mouth. ity of (IRON ORAL) 13:46: [address] ferrous 2020-03 Yes Take by Univer s sulfate 2-06 mouth. ity of (IRON ORAL) 13:46: [address] 2020-03 Yes Take 1 Univers Cmb#21-Iron 2-02 TAB-CAP/M2 it y of -Folic Acid 00:00: [place] 14 mg iron- 00 daily. Medica l 400 mcg Tab Branch [facility] 2020-03 Yes Take 1 Univers Cmb#21-Iron 2-02 TAB-CAP/M2 it y of -Folic Acid 00:00: [place] 14 mg iron- 00 daily. Medica l 400 mcg Tab Branch [facility] 2020-03 Yes Take 1 Univers Cmb#21-Iron 2-02 TAB-CAP/M2 it y of -Folic Acid 00:00: [place] mouth [place] 14 mg iron- 00 daily. Medica l 400 mcg Tab Branch [facility] 2020-03 Yes Take 1 Univers Cmb#21-Iron 2-02 TAB-CAP/M2 it y of -Folic Acid 00:00: [place] mouth [place] 14 mg iron- 00 daily. Medica l 400 mcg Tab Branch [facility] 2020-03 Yes Take 1 Univers Cmb#21-Iron 2-02 TAB-CAP/M2 it y of -Folic Acid 00:00: [place] 14 mg iron- 00 daily. Medica l 400 mcg Tab Branch [facility] 2020-03 Yes Take 1 Univers Cmb#21-Iron 2-02 TAB-CAP/M2 it y of -Folic Acid 00:00: by mouth [place] 14 mg iron- 00 daily. Medica l 400 mcg Tab Branch [facility] 2020-03 Yes Take 1 Univers Cmb#21-Iron 2-02 TAB-CAP/M2 it y of -Folic Acid 00:00: [place] mouth [place] 14 mg iron- 00 daily. Medica l 400 mcg Tab Branch [facility] 2020-03 Yes Take 1 Univers Cmb#21-Iron 2-02 TAB-CAP/M2 it y of -Folic Acid 00:00: [place] mouth [place] 14 mg iron- 00 daily. Medica l 400 mcg Tab Branch [facility] 2020-03 Yes Take 1 Univers Cmb#21-Iron 2-02 TAB-CAP/M2 it y of -Folic Acid 00:00: [place] mouth [place] 14 mg iron- 00 daily. Medica l 400 mcg Tab Branch [facility] 2020-03 Yes Take 1 Univers Cmb#21-Iron 2-02 TAB-CAP/M2 it y of -Folic Acid 00:00: [place] mouth [place] 14 mg iron- 00 daily. Medica l 400 mcg Tab Branch [facility] 2020-03 Yes Take 1 Univers Cmb#21-Iron 2-02 TAB-CAP/M2 it y of -Folic Acid 00:00: by mouth [place] 14 mg iron- 00 daily. Medica l 400 mcg Tab Branch [place] 2020-03 Yes Take 1 Univers Cmb#21-Iron 2-02 TAB-CAP/M2 it y of -Folic Acid 00:00: by mouth [place] 14 mg iron- 00 daily. Medica l 400 mcg Tab Branch [facility] 2020-03 Yes Take 1 Univers Cmb#21-Iron 2-02 TAB-CAP/M2 it y of -Folic Acid 00:00: [place] mouth [place] 14 mg iron- 00 daily. Medica l 400 mcg Tab Branch [place] 2020-03 Yes Take 1 Univers Cmb#21-Iron 2-02 TAB-CAP/M2 it y of -Folic Acid 00:00: by mouth [place] 14 mg iron- 00 daily. Medica l 400 mcg Tab Branch [facility] 2020-03- No Take 1 Univers Cmb#21-Iron 2-02 07-13 TAB-CAP/M2 i ty of -Folic Acid 00:00: 00:00 by mouth [place] 14 mg iron- 00 :00 daily. Medica l 400 mcg Tab Branch Immunizations Ordered Filled Immunization Date Status Comments [facility] e Immunization Name Name HPV9 2017-05-12 Completed University 00:00:00 [facility] HPV9 2017-05-12 Completed [facility] 00:00:00 [facility] HPV9 2017-05-12 Completed [facility] 00:00:00 [facility] HPV9 2017-05-12 Completed [facility] 00:00:00 [facility] HPV9 2017-05-12 Completed [facility] 00:00:00 [facility] HPV9 2017-05-12 Completed University of 00:00:00 [facility] HPV9 2017-05-12 Completed University of [...] Branch HPV9 2017-05-12 Completed University of 00:00:00 [facility] HPV9 2017-05-12 Completed University of 00:00:00 [place] [facility] HPV9 2017-05-12 Completed University of 00:00:00 [place] [facility] HPV9 2017-05-12 Completed University of 00:00:00 [place] [facility] HPV9 2017-05-12 Completed University of 00:00:00 [place] [facility] HPV9 2017-05-12 Completed University of 00:00:00 [place] [facility] HPV9 2017-05-12 Completed University of 00:00:00 [facility] Branch Td 2009-03-01 Completed University of 00:00:00 [facility] Branch Td 2009-03-01 Completed University of 00:00:00 [facility] Branch Td 2009-03-01 Completed University of 00:00:00 [facility] Branch Td 2009-03-01 Completed University of 00:00:00 [facility] Branch Td 2009-03-01 Completed University of 00:00:00 [facility] Branch Td 2009-03-01 Completed University of 00:00:00 [facility] Branch Td 2009-03-01 Completed University of 00:00:00 [facility] Branch Td 2009-03-01 Completed University of 00:00:00 [facility] Branch Td 2009-03-01 Completed University of 00:00:00 [facility] Branch Td 2009-03-01 Completed University of 00:00:00 [facility] Branch Td 2009-03-01 Completed University of 00:00:00 [facility] Branch Td 2009-03-01 Completed University of 00:00:00 [facility] TD, NOS 2009-03-01 Completed University of 00:00:00 [facility] Branch TD, NOS 2009-03-01 Completed University of 00:00:00 [facility] Branch TD, NOS 2009-03-01 Completed University of 00:00:00 [place] [facility] Td 2009-03-01 Completed University of 00:00:00 [place] [facility] Td 2009-03-01 Completed University of 00:00:00 [place] [facility] Td 2009-03-01 Completed University of 00:00:00 [place] [facility] Td 2009-03-01 Completed University of 00:00:00 [place] [facility] Td 2009-03-01 Completed University of 00:00:00 [place] [facility] Td 2009-03-01 Completed University of 00:00:00 [facility] Branch Td 2009-03-01 Completed University of 00:00:00 [facility] Vital Signs Vital Name Observation Time Observation Value Comments Source Systolic blood 2022-04-28 14:50:00 135 mm[Hg] Univer sity of pressure [facility] Diastolic blood 2022-04-28 14:50:00 90 mm[Hg] Unive rsity of [facility] Heart rate 2022-04-28 14:50:00 85 /min [facility] Body temperature 2022-04-28 14:50:00 36.83 Ariane [facility] Res[facility] rate 2022-04-28 14:50:00 16 /min Univ [facility] Body height 2022-04-28 14:50:00 165.1 cm [facility] Body weight 2022-04-28 14:50:00 137.712 kg [facility] BMI 2022-04-28 14:50:00 50.52 kg/m2 [facility] Oxygen saturation in 2022-04-28 14:50:00 97 /min [facility] Arterial blood by [facility] Pulse oximetry Branch Systolic blood 2021-10-29 20:55:00 125 mm[Hg] Univer sity of pressure [facility] Diastolic blood 2021-10-29 20:55:00 81 mm[Hg] Unive rsity of pressure [facility] Heart rate 2021-10-29 20:55:00 82 /min Universi [facility] Body temperature 2021-10-29 20:55:00 36.83 Ariane Univ ersity of [place] [facility] Respiratory rate 2021-10-29 20:55:00 18 /min Univ ersity of [place] [facility] Body height 2021-10-29 20:55:00 165.1 cm Universi ty of [place] [facility] Body weight 2021-10-29 20:55:00 135.263 kg Universi ty of [place] [facility] BMI 2021-10-29 20:55:00 49.62 kg/m2 Universi ty of [place] [facility] Oxygen saturation in 2021-10-29 20:55:00 97 /min University of Arterial blood by [place] Pulse oximetry Branch Systolic blood 2021-10-01 18:16:00 150 mm[Hg] Univer sity of pressure [facility] Diastolic blood 2021-10-01 18:16:00 105 mm[Hg] Unive rsity of pressure [facility] Heart rate 2021-10-01 18:06:00 75 /min Universi ty of [place] [facility] Body temperature 2021-10-01 18:06:00 36.72 Ariane Univ ersity of [place] [facility] Respiratory rate 2021-10-01 18:06:00 19 /min Univ ersity of [place] [facility] Body height 2021-10-01 18:06:00 165.1 cm Universi ty of [place] [facility] Body weight 2021-10-01 18:06:00 116.574 kg Universi ty of [place] [facility] BMI 2021-10-01 18:06:00 42.77 kg/m2 Universi ty of [place] [facility] Systolic blood 2021-09-10 12:30:00 136 mm[Hg] Univer sity of pressure [facility] Diastolic blood 2021-09-10 12:30:00 83 mm[Hg] Unive rsity of pressure [facility] Heart rate 2021-09-10 12:25:00 61 /min Universi ty of [place] [facility] Body temperature 2021-09-10 12:25:00 36.83 Ariane Univ ersity of [place] [facility] Respiratory rate 2021-09-10 12:25:00 16 /min Univ ersity of [place] [facility] Oxygen saturation in 2021-09-10 12:25:00 100 /min University of Arterial blood by [facility] Pulse oximetry Branch Body height 2021-09-09 10:19:00 165.1 cm Universi ty of [place] [facility] Body weight 2021-09-09 10:19:00 141.069 kg Universi ty of [place] [facility] BMI 2021-09-09 10:19:00 51.75 kg/m2 Universi ty of [place] [facility] Systolic blood 2021-09-05 19:05:00 139 mm[Hg] Univer sity of pressure [place] [facility] Diastolic blood 2021-09-05 19:05:00 87 mm[Hg] Unive rsity of pressure [facility] Heart rate 2021-09-05 19:05:00 73 /min Universi ty of [place] [facility] Body temperature 2021-09-05 19:05:00 36.56 Ariane Univ ersity of [place] [facility] Respiratory rate 2021-09-05 19:05:00 18 /min Univ ersity of [place] [facility] Body height 2021-09-05 19:05:00 165.1 cm Universi ty of [place] [facility] Body weight 2021-09-05 19:05:00 143.79 kg Universi ty of [place] [facility] BMI 2021-09-05 19:05:00 52.75 kg/m2 Universi ty of [place] [facility] Systolic blood 2021-08-27 21:08:00 123 mm[Hg] Univer sity of pressure [place] [facility] Diastolic blood 2021-08-27 21:08:00 87 mm[Hg] Unive rsity of pressure [facility] Heart rate 2021-08-27 21:08:00 75 /min Universi ty of [place] [facility] Body temperature 2021-08-27 21:08:00 36.94 Ariane Univ ersity of [place] [facility] Respiratory rate 2021-08-27 21:08:00 18 /min Univ ersity of [place] [facility] Body height 2021-08-27 21:08:00 165.1 cm Universi ty of [place] [facility] Body weight 2021-08-27 21:08:00 143.155 kg Universi ty of [place] [facility] BMI 2021-08-27 21:08:00 52.52 kg/m2 Universi ty of [place] [facility] Systolic blood 2021-08-07 21:14:00 118 mm[Hg] Univer sity of pressure [facility] Diastolic blood 2021-08-07 21:14:00 82 mm[Hg] Unive rsity of pressure [facility] Heart rate 2021-08-07 21:14:00 66 /min Universi ty of [place] [facility] Body temperature 2021-08-07 21:14:00 36.83 Ariane Univ ersity of [place] [facility] Respiratory rate 2021-08-07 21:14:00 18 /min Univ ersity of [place] [facility] Body height 2021-08-07 21:14:00 165.1 cm Universi ty of [place] [facility] Body weight 2021-08-07 21:14:00 143.79 kg Universi ty of [place] [facility] BMI 2021-08-07 21:14:00 52.75 kg/m2 Universi ty of [place] [facility] Systolic blood 2021-07-22 21:07:00 109 mm[Hg] Univer sity of pressure [facility] Diastolic blood 2021-07-22 21:07:00 74 mm[Hg] Unive rsity of pressure [facility] Heart rate 2021-07-22 21:07:00 76 /min Universi ty of [place] [facility] Body temperature 2021-07-22 21:07:00 36.61 Ariane Univ ersity of [place] [facility] Body height 2021-07-22 21:07:00 165.1 cm Universi ty of [place] [facility] Body weight 2021-07-22 21:07:00 142.974 kg Universi ty of [place] [facility] BMI 2021-07-22 21:07:00 52.45 kg/m2 Universi ty of [place] [facility] Systolic blood 2021-07-10 16:13:00 112 mm[Hg] Univer sity of pressure [facility] Diastolic blood 2021-07-10 16:13:00 58 mm[Hg] Unive rsity of pressure [facility] Heart rate 2021-07-10 16:13:00 78 /min Universi ty of [place] [facility] Body temperature 2021-07-10 16:13:00 36.67 Ariane Univ ersity of [place] [facility] Respiratory rate 2021-07-10 16:13:00 18 /min Univ ersity of [place] [facility] Body height 2021-07-10 16:13:00 165.1 cm Universi ty [facility] [place] [facility] Body weight 2021-07-10 16:13:00 142.883 kg [facility] BMI 2021-07-10 16:13:00 52.42 kg/m2 [facility] Systolic blood 2021-07-04 21:59:00 125 mm[Hg] Univer sity of pressure [facility] Diastolic blood 2021-07-04 21:59:00 84 mm[Hg] Unive rsity of [facility] Heart rate 2021-07-04 21:58:00 90 /min [facility] Body temperature 2021-07-04 21:58:00 36.83 Ariane [facility] Respiratory rate 2021-07-04 21:58:00 19 /min [facility] Body height 2021-07-04 21:58:00 165.1 cm [facility] Body weight 2021-07-04 21:58:00 144.788 kg [facility] BMI 2021-07-04 21:58:00 53.12 kg/m2 [facility] Procedures Procedure Date / Time Performing Clinician Source Performed CBC WITH DIFF 2021-09-10 10:00:00 [facility] HB ABO GROUPING 2021-09-09 11:00:00 [facility] RHO (D) IMMUNE GLOBULIN 2021-09-09 11:00:00 [facility] CONSENT/REFUSAL FOR 2021-09-08 16:30:00 Doctor Unassigned, No Un iversFormerly [facility] DIAGNOSIS AND [facility] Medical Branch ASSIGNMENT OF BENEFITS 2021-09-08 16:26:56 Doctor Unassigned, No [facility] NOTICE OF PRIVACY 2021-09-08 16:26:44 Doctor Unassigned, No Univ [facility] PRACTICES [facility] CONSENT/REFUSAL FOR 2021-09-08 16:26:30 Doctor Unassigned, No Un iversFormerly [facility] DIAGNOSIS AND TREATMENT [facility] ASSIGNMENT OF BENEFITS 2021-09-08 16:26:17 Doctor Unassigned, No [facility] PHYSICIAN ORDERS 2021-09-08 05:01:00 Doctor Unassigned, No Unive [facility] POCT URINALYSIS W/O 2021-09-05 00:00:00 George Monreal [facility] SPECIFIC [facility] DSU PRE-OP 2021-08-27 05:01:00 Doctor Unassigned, No [facility] POCT URINALYSIS W/O 2021-08-27 00:00:00 Adum, Rebecca Snider [facility] POCT URINALYSIS W/O 2021-08-07 00:00:00 Adum, Rebecca Snider [facility] POCT URINALYSIS W/O 2021-07-22 00:00:00 Adum, Rebecca Snider [facility] LACTATE DEHYDROGENASE 2021-07-10 17:36:00 Adum, Rebecca Snider [facility] URIC ACID 2021-07-10 17:36:00 Adum, Rebecca Snider [facility] COMP. METABOLIC PANEL 2021-07-10 17:36:00 Adum, Rebecca Snider [facility] ([id number]) [facility] ADC CLC OR LCC ONLY - 2021-07-10 17:36:00 Adum, Rebecca Snider [facility] NOTICE OF PRIVACY 2021-07-10 15:43:53 Doctor Unassigned, No [facility] CONSENT/REFUSAL FOR 2021-07-10 15:43:43 Doctor Unassigned, No [facility]AT[facility] ASSIGNMENT OF BENEFITS 2021-07-10 15:43:32 Doctor Unassigned, No [facility] POCT URINALYSIS W/O 2021-07-04 22:00:00 Adum, Rebecca Snider [facility] SCANNED LAB RESULTS 2021-06-17 05:01:00 [facility], [facility] Start End Encounter Admission Attending Care Care Encounter Source Date/Time Date/Time Type Type Clinicians Facility Department ID 2021-07-10 Outpatient P [facility] [id number] [facility] Emergency [facility] [id number] Univers 23:25:03 ity [facility] 2022-09-03 2022-09-03 Outpatient R TAI, [facility] [id number] Univers 13:00:00 13:00:00 ANNETTASCOTTY kaplan [facility] 2022-07-01 2022-07-01 Outpatient R ADUM, [facility] [id number] Univers 15:00:00 15:00:00 REBECCA kaplan [facility] 2022-04-28 2022-04-28 Outpatient R ADUM, [facility] [id number] Univers 08:45:00 09:24:05 REBECCALAURA kaplan [facility] 2022-04-28 2022-04-[address] [facility] [place] [place] [id number] Univers 08:45:00 09:24:05 Visit Rebecca VOGEL [id number] i ty of [id number] [id number] [address] 2022-04-22 2022-04-22 [facility] [id number] Univers 00:00:00 00:00:00 Rebecca TUCKER [id number] ity [facility] [id number] [id number] Oh dical [address] 2022-04-09 2022-04-09 Outpatient Elba LUJAN [facility] [id number] Univers 13:00:00 13:00:00 ANNETTASCOTTY kaplan [facility] 2022-04-03 2022-04-03 Outpatient R TAI [facility] [id number] Univers 10:00:00 10:00:00 ANNETTA ity [facility] 2021-11-10 2021-11-10 Outpatient R TAI [facility] [id number] Univers 13:00:00 13:00:00 ANNETTA ity [facility] 2021-10-29 2021-10-29 Outpatient R MAYNOR, [facility] [id number] Univers 16:00:00 16:35:52 REBECCALAURA kaplan [facility] 2021-10-29 2021-10-[address] [facility] [place] [place] [id number] Univers 16:00:00 16:35:52 Rebecca Snider JASPREET [id number] ity of [id number] [id number] [address] 2021-10-22 2021-10-22 [id number] Univers 15:45:00 15:45:00 REBECCA ity [facility] 2021-10-02 2021-10-02 Telephone [facility] [id number] Univers 00:00:00 00:00:00 Rebecca TUCKER [id number] ity of [facility] [id number] [id number] [address] 2021-10-01 2021-10-01 [facility] [id number] Univers 13:15:00 13:59:30 REBECCA ity [facility] 2021-10-01 2021-10-[address] [facility] [place] [place] [id number] Univers 13:15:00 13:59:30 Rebecca Tylor JASPREET [id number] ity of [id number] [id number] [address] 2021-09-17 2021-09-17 [facility] [id number] Univers 00:00:00 00:00:00 Joo TUCKER [id number] i ty of [facility] [id number] [id number] Oh dic[address] 2021-09-09 2021-09-10 Inpatient P [facility] [id number] Univers 03:58:00 15:38:00 ity [facility] 2021-09-09 2021-09-10 [facility] [id number] Univers 03:58:00 15:38:00 Encounter Joo TUCKER [id number] ity of [facility] 4.2.7.2.686 [facility] [id number] [facility] [address] [place] 2021-09-08 2021-09-08 Laboratory Only, [facility] Test [facility] 1.2.840. 114 [id number] Univers 11:15:00 11:30:00 Only George Monreal [id number] ity of [facility] 4.2.7.2.686 [facility] [id number] [facility] [address] [place] 2021-09-08 2021-09-08 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 Sera, [facility] Main [place] 1.2.8 40.114 [id number] Univers 11:00:00 11:15:00 Visit George Monreal [id number] ity of [facility] 4.2.7.2.686 [facility] PROFESSIO [id number] Oh dical [facility] 2021-09-08 2021-09-08 Outpatient R RAH GEORGE [facility] [id number] Univers 11:00:00 11:00:00 ity [facility] 2021-09-05 2021-09-05 Outpatient R MELQUIADES CHAUDHRY [facility] B [id number] Univers 14:00:00 14:33:15 MELQUIADES CHAUDHRYy [facility] 2021-09-05 2021-09-05 Routine George Monreal [facility] [id number] Univers 14:00:00 14:33:15 Melquiades Chaudhry 350.1.13. 10 ity of Visit WOMEN'S 4.2.7.2.686 [facility] [id number] [facility] [address] 2021-09-03 2021-09-03 Outpatient R MAYNOR, [facility] [id number] Univers 15:45:00 15:45:00 REBECCA kaplan [facility] 2021-08-27 2021-08-27 Routine Adum, [facility] [id number] Univers 15:30:00 16:46:41 Rebecca TUCKER [id number] ity of [place] [id number] Oh dical [address] 2021-08-27 2021-08-27 Outpatient R ADUM, [facility] [id number] Univers 15:30:00 16:46:41 REBECCA ity [facility] 2021-08-27 2021-08-27 Orders Doctor MILTON [id number] Univers 00:00:00 00:00:00 Only Unassigned, SONNY [id number] ity of [place] [facility] 4.2.7.2.686 Robert as [id number] [address] 2021-08-18 2021-08-18 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 Ultrasound, [facility] 1.2 .840.114 [id number] Univers 11:00:00 11:30:00 Visit Mark Anthony Padron OFFICE CHAIR ASSEMBLER 350.1. 13.10 ity of [facility] [id number] Robert as MATERNAL [id number] Med ical & CHILD [address] [place] [address] 2021-08-18 2021-08-18 Outpatient P RAEGAN [facility] [id number] Univers 11:00:00 11:00:00 CARLOS EDUARDO it y of S [place] [facility] 2021-08-07 2021-08-07 Outpatient R ADUM, [facility] [id number] Univers 16:00:00 16:47:57 REBECCA ity [facility] 2021-08-07 2021-08-07 Routine Adum, [facility] 1.2.840.114 [id number] Univers 16:00:00 16:47:57 Rebecca TUCKER [id number] ity of [id number] [id number] [address] 2021-07-22 2021-07-22 Outpatient R ADUM, [facility] [id number] Univers 16:15:00 16:27:19 REBECCA ity [facility] 2021-07-22 2021-07-22 Routine Adum, [facility] 1.2.840.114 [id number] Univers 16:15:00 16:27:19 Rebecca Snider [place] [id number] ity of Visit [id number] [id number] Oh dical NAL [address] [place] [address] 2021-07-17 2021-07-17 Outpatient R ADUM, [facility] [id number] Univers 16:00:00 16:00:00 REBECCA ity of [facility] 2021-07-10 2021-07-10 Outpatient P ADUM, [facility] [id number] Univers 10:37:00 13:45:00 REBECCA ity [facility] 2021-07-10 2021-07-10 [facility] 1.2.840.114 [id number] Univers 10:37:00 13:45:00 Encounter Adum, Rebecca Snider [place] [id number] ity [place] [id number] [place] [address] [place] 2021-07-10 2021-07-10 Telephone Adum, [facility] [id number] Univers 00:00:00 00:00:00 Rebecca Snider [place] [id number] ity of [facility] 4.2.7.2.[place] [id number] Oh dical NAL [address] [place] [address] 2021-07-04 2021-07-04 Outpatient R ADUM, [facility] [id number] Univers 16:15:00 17:25:24 REBECCA ity of [facility] 2021-07-04 2021-07-04 Routine Adum, [facility] 1.2.840.114 [id number] Univers 16:15:00 17:25:24 Rebecca L [place] [id number] ity of [place] 4[place]2.[place] PROFESSIO [phone] Oh dical NAL [address] [place] [address] 2021-07-04 2021-07-04 Outpatient R ADUM, [facility] [id number] Univers 16:15:00 16:15:00 REBECCA ity of [facility] 2021-07-04 2021-07-04 Telephone Adum, [facility] 1.2.148.309 [id number] Univers 00:00:00 00:00:00 Rebecca L [place] 350.1.13.10 ity of [place] [id number] Oh dical NAL [address] [place] [address] 2021-06-26 2021-06-26 Telephone Adum, [facility] 1.2.343.063 [id number] Univers 00:00:00 00:00:00 Rebecca L [place] 350.1.13.10 ity of [place] [phone] Oh dical NAL [address] [place] [address] 2021-06-24 2021-06-24 Telephone Ad, [facility] 1.2.801.812 [id number] Univers 00:00:00 00:00:00 Rebecca L [place] 350.1.13.10 ity of [place] [phone] Oh dical NAL [address] [place] [address] 2021-06-20 2021-06-20 Outpatient R ADUM, [facility] [id number] Univers 15:45:00 16:58:18 REBECCA ity of [facility] 2021-06-20 2021-06-20 Routine Ad, [facility] 1.2.840.114 [id number] Univers 15:45:00 16:58:18 Rebecca L [place] 350.1.13.10 ity of Visit [facility] 4.2.7.2.[place] [phone] Oh dical NAL [address] [place] [address] 2021-06-20 2021-06-20 Case Adum, [facility] 1.2.840.114 [id number] Univers 00:00:00 00:00:00 Management Rebecca L [place] 350.1.13.10 ity of [place] [id number] Oh dical NAL [address] [place] [address] 2021-06-17 2021-06-17 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 Sera, Adc Lab Main [facility] 1.2.8 40.114 [id number] Univers 11:30:00 11:45:00 Visit OzziesulaimanRebecca 350.1.13.10 ity of [facility] 4.2.7.2.[place] [phone] Oh dical [facility] [address] [facility] 2021-06-17 2021-06-17 Outpatient P RAEGAN [facility] [id number] Univers 09:45:00 10:31:22 CARLOS EDUARDO it y of S, [place] [facility] 2021-06-17 2021-06-17 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 Drew, [facility] 1.2 .840.114 [id number] Univers 09:45:00 10:31:22 Visit Raegan Mark Anthony Banerjee 350.1 .13.10 ity of [facility] 4.2.7.2.[place] [phone] Oh dical [facility] [address] [facility] 2021-06-17 2021-06-17 Telephone Adum, [facility] 1.2.341.619 [id number] Univers 00:00:00 00:00:00 Rebecca TUCKER 350.1.13.10 ity of [facility] 4.2.7.2.[place] [phone] Oh dical [facility] [address] [facility] 2021-06-17 2021-06-17 Orders Doctor MILTON 1.2.840.114 [id number] Univers 00:00:00 00:00:00 Only Unassigned, SONNY 350.1.13.10 ity of [place] [facility] 4.2.7.2.686 Robert as [phone] [address] 2021-05-29 2021-05-29 Outpatient R MAYNOR [facility] [id number] Univers 16:00:00 16:00:00 REBECCA kaplan [facility] 2021-05-14 2021-05-14 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 Ultrasound, Gov[facility] 1.2 .840.114 [id number] Univers 10:45:00 11:57:06 Visit Evin Woods OFFICE CHAIR ASSEMBLER 350.1.13.10 [facility] 4.2.7.2.686 Robert as MATERNAL [phone] Med ical & CHILD [address] [place] [address] 2021-05-14 2021-05-14 Outpatient Francisca REGINO [facility] [id number] Univers 10:45:00 10:45:00 EVIN [facility] 2021-05-06 2021-05-06 Outpatient R AD, [facility] [id number] Univers 09:30:00 09:30:00 [facility] 2021-04-30 2021-04-30 Outpatient R AD, [facility] [id number] Univers 15:30:00 15:35:46 [facility] 2021-04-29 2021-04-29 Outpatient R ADUM, [facility] [id number] Univers 16:00:00 16:00:00 [facility] 2021-04-24 2021-04-24 Outpatient R AD, [facility] [id number] Univers 16:00:00 16:00:00 [facility] 2021-04-14 2021-04-14 [facility]phone [facility] 1.2.694.640 [id number] Univers 00:00:00 00:00:00 Rebecca Snider [place] 350.1.13.10 ity [facility] 4[place]2.7.2.[place] [id number] Oh dical NAL [address] [facility] 2021-04-09 2021-04-09 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 Sera, Naty Lab Main [facility] 1.2.8 40.114 [id number] Univers 11:15:00 11:30:00 Visit Adsulaiman, Rebecca CUEVASMIKEY 350.1.13.10 ity [facility] 4[place]2.7.2.[place] [phone] Oh dical NAL [address] [facility] 2021-04-09 2021-04-09 Outpatient R ADUM, [facility] [id number] Univers 11:15:00 11:15:00 REBECCA [facility] 2021-04-09 2021-04-09 Outpatient R ADUM, [facility] [id number] Univers 11:15:00 11:15:00 REBECCA ity [facility] 2021-04-09 2021-04-09 Orders Doctor MILTON 1.2.840.114 [id number] Univers 00:00:00 00:00:00 Only Unassigned, SONNY 350.1.13.10 ity of [place] [facility] 4.2.7.2.686 Robert as [phone] [address] 2021-04-09 2021-04-09 Case George Monreal [facility] 1.2.667.311 [id number] Univers 00:00:00 00:00:00 Management Joo TUCKER 350.1.13.10 ity of [place] [phone] Oh dical NAL [address] [facility] 2021-03-27 2021-03-27 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 Sera, Adc Lab Main [facility] 1.2.8 40.114 [id number] Univers 17:00:00 17:15:00 Visit AdRebecca hilario 350.1.13.10 ity of [place] [phone] Oh dical NAL [address] [facility] 2021-03-27 2021-03-27 Outpatient R ADUM, [facility] [id number] Univers 17:00:00 17:00:00 REBECCA ity [facility] 2021-03-27 2021-03-27 Outpatient R ADUM, [facility] [id number] Univers 16:00:00 16:34:58 REBECCA ity [facility] 2021-03-27 2021-03-27 Outpatient R ADUM, [facility] [id number] Univers 16:00:00 16:34:58 REBECCA ity [facility] 2021-03-27 2021-03-27 Routine Adum, [facility] 1.2.840.114 [id number] Univers 16:00:00 16:34:58 Rebecca TUCKER 350.1.13.10 ity of Visit [place] [id number] Oh dical NAL [address] [facility] 2021-03-27 2021-03-27 Outpatient R AD, [facility] [id number] Univers 16:00:00 16:00:00 REBECCA [facility] 2021-03-03 2021-03-03 Outpatient R [facility] [id number] Univers 12:00:00 12:00:00 ity [facility] 2021-03-03 2021-03-03 Outpatient R ADUM, [facility] [id number] Univers 12:00:00 12:00:00 [facility] 2021-02-27 2021-02-27 Outpatient R AD, [facility] [id number] Univers 16:00:00 17:18:20 REBECCA [facility] 2021-02-27 2021-02-27 Routine Ad, [facility] 1.2.840.114 [id number] Univers 16:00:00 17:18:20 Rebecca L [place] 350.1.13.10 ity of Visit [place] [phone] Oh dical NAL [address] [place] [address] 2021-02-27 2021-02-27 Outpatient R AD, [facility] [id number] Univers 16:00:00 16:00:00 [facility] 2021-02-25 2021-02-25 Telephone Pcp, [facility] 1.2.781.777 [id number] Univers 00:00:00 00:00:00 Patient [place] 350.1.13.10 i ty of Does Not [place] 4.2.7.2.686 Robert as Have A PROFESSIO [phone] Oh dical NAL [address] [place] [address] 2021-02-25 2021-02-25 Orders Doctor MILTON 1.2.840.114 [id number] Univers 00:00:00 00:00:00 Only Unassigned, SONNY 350.1.13.10 ity of [place] [facility] 4.2.7.2.686 Robert as [phone] [address] 2021-02-07 2021-02-07 Patient Adum, [facility] 1.2.840.114 [id number] Univers 00:00:00 00:00:00 Secure Msg Rebecca Snider [place] 350.1.13.10 ity of [facility] 4.2.7.2.[place] [phone] Oh dical NAL [address] [place] [address] 2021-02-03 2021-02-03 Routine George Monreal [facility] 1.2.799.113 [id number] Univers 13:36:33 14:04:22 Cam [place] 350.1.13.10 ity of Visit [place]2.[place].2.[place] [phone] Oh dical NAL [address] [place] [address] 2021-02-03 2021-02-03 Outpatient R GEORGE MONREAL [facility] [id number] Univers 13:30:00 14:04:22 ity of [facility] 2021-02-03 2021-02-03 Telephone Ad, [facility] 1.2.292.962 [id number] Univers 00:00:00 00:00:00 Rebecca CUEVASTON 350.1.13.10 ity of [facility] 4.2.7.2.[place] [id number] Oh dical NAL [address] [place] [address] 2021-01-31 2021-01-31 Telephone Ad, [facility] 1.2.764.617 [id number] Univers 00:00:00 00:00:00 Rebecca CUEVASTON 350.1.13.10 ity of [facility] 4.2.7.2.[place] [id number] Oh dical NAL [address] [place] [address] 2021-01-31 2021-01-31 Case Ad, [facility] 1.2.840.114 [id number] Univers 00:00:00 00:00:00 Management Rebecca Snider [place] 350.1.13.10 ity of [facility] 4.2.7.2.[place] [id number] Oh dical NAL [address] [place] [address] 2021-01-30 2021-01-30 Initial Ad, [facility] 1.2.840.114 [id number] Univers 13:45:39 15:16:39 Rebecca L [place] 350.1.13.10 ity of Visit [place].2.[place] [id number] Oh dic[address] 2021-01-30 2021-01-30 Outpatient R ADUM, [facility] [id number] Univers 13:45:00 15:16:39 REBECCA ity [facility] 2021-01-30 2021-01-30 Outpatient R AD, [facility] [id number] Univers 13:45:00 15:16:39 REBECCA ity [facility] 2021-01-30 2021-01-30 Initial Ad, [facility] 1.2.840.114 [id number] Univers 13:45:00 15:16:39 Rebecca L [place] 350.1.13.10 ity of Visit [place].2.[place] [phone] [address] 2021-01-30 2021-01-30 Telephone Ad, [facility] 1.2.056.065 [id number] Univers 00:00:00 00:00:00 Rebecca L [place] 350.1.13.10 ity of [facility] 4.2.7.2.[place] [id number] [address] 2021-01-29 2021-01-29 Outpatient R AD, [facility] [id number] Univers 16:34:17 23:59:00 REBECCA ity [facility] 2021-01-29 2021-01-29 [facility] 1.2.840.114 [id number] Univers 16:30:00 23:59:00 Encounter Rebecca L [place] 350.1.13.10 ity of [place] 4[place]2.7.2.[place] [id number] [facility] [address] [place] [address] 2021-01-21 2021-01-21 Patient Adum, [facility] 1.2.840.114 [id number] Univers 00:00:00 00:00:00 Secure Msg Rebecca L [place] 350.1.13.10 ity of [facility] 4.2.7.2.[place] [id number] Oh dical NAL [address] [facility] 2021-01-20 2021-01-20 Telephone Adum, [facility] 1.2.605.020 [id number] Univers 00:00:00 00:00:00 Rebecca Snider [place] 350.1.13.10 ity of [place] [id number] Oh dical NAL [address] [facility] 2021-01-18 2021-01-18 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, Adc Lab Main [facility] 1.2.8 40.114 [id number] Univers 09:13:56 09:28:56 Visit Adsulaiman, Rebecca Tylor TUCKER 350.1.13.10 ity of [place] [id number] Oh dical NAL [address] [facility] 2021-01-18 2021-01-18 Outpatient R [facility] [id number] Univers 09:00:00 [facility]:00[facility] 2021-01-18 Outpatient R ADUM, [facility] [id number] Univers 09:00:00 09:00:00 [facility] 2021-01-16 2021-01-16 Outpatient R ADUM, [facility] [id number] Univers 14:00:00 14:00:00 [facility] 2021-01-16 2021-01-16 Outpatient R ADUM, [facility] [id number] Univers 14:00:00 14:00:00 [facility] 2021-01-16 2021-01-16 Emergency X REESE, K [facility] ERT [id number] Univers 10:03:00 12:46:[facility] 2021-01-16 2021-01-16 Emergency Reese, K [facility] 1.2.840.114 [id number] Univers 10:03:00 12:46:00 Aminata TUCKER 350.1.13.10 i ty of [place].2.[place] [id number] [address] 2021-01-15 2021-01-15 Outpatient R ADUM, [facility] [id number] Univers 14:30:00 15:31:36 REBECCA kaplan [facility] 2021-01-15 2021-01-15 Outpatient R ADUM, [facility] [id number] Univers 14:30:00 15:31:36 REBECCA kaplan [facility] 2021-01-15 2021-01-15 Office Adum, [facility] 1.2.840.114 [id number] Univers 14:17:38 15:31:36 Visit Rebecca Snider [place] 350.1.13.10 ity [facility] 4[place]2.7.2.[place] [id number] Oh dic[address] 2021-01-14 2021-01-14 Emergency X GARCIA, [facility] ERT [id number] Univers 11:11:00 15:34:00 ELSY kaplan [facility] 2021-01-14 2021-01-14 [facility] 1.2.839.749 [id number] Univers 11:11:00 15:34:00 Elsy TUCKER 350.1.13.10 i ty of [place] 4.2.7.2.686 [facility] [id number] [address] 2021-01-14 2021-01-14 Emergency X GARCIA, [facility] ERT [id number] Univers 11:11:00 15:34:00 ELSY kaplan [facility] 2021-01-14 2021-01-14 Telephone George Monreal [facility] 1.2.840.114 [id number] Univers 00:00:00 00:00:00 Joo TUCKER 350.1.13.10 i ty of [place] [id number] Oh dic[address] 2020-10-13 2020-10-13 Outpatient R [facility] [id number] Univers 16:00:00 16:00:00 ity [facility] 2020-10-06 2020-10-06 Outpatient R KAYY, [facility] [id number] Univers 12:00:00 12:00:00 LYNN to [facility] 2020-10-05 2020-10-05 Outpatient R KAYY, [facility] [id number] Univers 12:00:00 12:00:00 LYNN kaplan o yousuf [facility] 2020-08-04 2020-08-04 [facility] 1.2.840.114 [id number] 14:11:00 18:11:00 Janet Tukcer 350.1.13.10 [place] 4.2.7.2.686 [place] [id number] 084 2020-04-12 2020-04-12 Telephone [facility] 1.2.840.114 [id number] 00:00:00 00:00:00 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 Results Test Description Test Time Test Comments Results Result Comments Source RHO (D) IMMUNE GLOBULIN 2021-09-09 20:47:05 Test Item Value Reference Range Interpretation Comme nts RHIG CANDIDATE? (test code = No- see comment Patient is not a candidate for RhIg- 5055) Patient is Rh P ositive.Performed at [facility] Laboratory Services - [facility] Blood [address] [place] [address]Bhfx Free: [phone] A No. [id number] [facility] - ONCE [id number] 12:58:30 Test Item Value Reference Range Interpretation Comments ABO & RH (test code O Positive Performe d at [facility] = 20) Laboratory Serv [facility] Blood Bank1 [address] [place] [address]Ptdq Free: [phone] A No. [id number] IAT (test code = Negative Performed a t [facility] 1185) Laboratory Serv [facility] Blood [facility] [address] [place] [address]Lpeu Free: [phone] A No. [id number] [facility] SPECIFIC [id number] 19:11:00 Test Item Value Reference Range Interpretation [...] code = 3257) N/A Negative - Negative [facility] W/O SPECIFIC [id number] 21:04:00 Test Item Value Reference Range Interpretation [...] code = 3257) n/a Negative - Negative [facility] W/O SPECIFIC [id number] 21:30:00 Test Item Value Reference Range Interpretation [...] code = 3257) n/a Negative - Negative [facility] W/O SPECIFIC [id number] 21:04:00 Test Item Value Reference Range Interpretation [...] code = 3257) n/a Negative - Negative [facility] CenterCOMP. METABOLIC PANEL (80167)2021-07-10 18:15:19 Test Item Value Reference Range Interpretation Comments NA (test code = 134 mmol/L 135-145 L 9713096144) K (test code = 4.0 mmol/L 3.5-5.0 9986219053) CL (test code = 104 mmol/L 98-108 7295843390) CO2 TOTAL (test code = 23 mmol/L 23-31 4886946625) AGAP (test code = 2-16 1602394985) BUN (test code = 8 mg/dL 7-23 7926949857) GLUCOSE (test code = 76 mg/dL 70-110 1523751917) CREATININE (test code = 0.56 mg/dL 0.50-1.04 4115168320) TOTAL BILI (test code = 1.3 mg/dL 0.1-1.1 H 1635758594) CALCIUM (test code = 8.8 mg/dL 8.6-10.6 7596131843) T PROTEIN (test code = 6.9 g/dL 6.3-8.2 2913441823) ALBUMIN (test code = 3.7 g/dL 3.5-5.0 6226129344) ALK PHOS (test code = 122 U/L 34-122 8457730323) ALTv (test code = 15 U/L 5-35 1742-6) AST(SGOT) (test code = 25 U/L 13-40 9273959174) eGFR (test code = mL/min/1.73m2 6940338911) ELLYN (test code = ELLYN) Association of [...] tests). Lab Interpretation Abnormal (test code = 69899-8) [facility] Center[facility] [id number] 18:15:19 Test Item Value Reference Range Interpretation Comments URIC ACID (test code = 6093415580) 4.0 mg/dL 2.9-6.0 Lab Interpretation (test code = Normal 28034-0) [facility] CenterLACTATE [id number] 18:13:18 Test Item Value Reference Range Interpretation Comments LDH (test code = 1150334410) 325 U/L 300-600 Lab Interpretation (test code = Normal 02400-7) [facility] W/O SPECIFIC [id number] 22:00:00 Test Item Value Reference Range Interpretation [...] code = 3257) n/a Negative - Negative [facility]"
[2022-09-30 12:09] LABS: SARS-CoV-2 Antigen Rapid Res Negative (Negative)
--- NOTE | 2022-09-30 12:52 | EDPHYS ---
Physician Documentation [facility] Name: Ximena Zheng Age: 27 yrs Sex: Female : 1995 Arrival Date: 09/30/2022 Time: 11:25 Bed 15 Private MD: ED Physician Ministerio Hung HPI: 09/30 11:43 This 27 yrs old Female presents to ER via Ambulatory with complaints of Chest sb4 Congestion, Sore Throat, Ear Pain. 11:43 Onset: The symptoms/episode began/occurred 1 week(s) ago. Associated signs and sb4 symptoms: Pertinent positives: chest pain, congestion, cough, diarrhea, earache, fever, nasal discharge, shortness of breath, sore throat, Pertinent negatives: abdominal pain, dysuria, seizure, vomiting, wheezing. Modifying factors: The patient symptoms are alleviated by OTC cold/flu medication. The patient has not experienced similar symptoms in the past, but friend has similar symptoms. The patient has not recently seen a physician. Patient states she started feeling sick about a week ago. She has been experiencing chest congestion, sore throat, productive cough, right ear pain. She states that a family member was sick last week but only for couple days. Hers is just lingered for a week now. She states that she has been taking [id number]-dhikhra medication which has somewhat helped with the symptoms. 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 - Social history:: Smoking status: Reported history of juuling and/or vaping. ROS: 11:43 Eyes: Negative for injury, pain, redness, and discharge, Skin: Negative for injury, sb4 rash, and discoloration. 11:43 Constitutional: Positive for chills, fever, malaise. 11:43 ENT: Positive for ear pain, nasal discharge, rhinorrhea, sinus congestion, sinus pain, sore throat. 11:43 Cardiovascular: Positive for chest pain. 11:43 Respiratory: Positive for cough, shortness of breath. 11:43 Abdomen/GI: Positive for diarrhea. 11:43 All other systems are negative. Exam: 11:43 Constitutional: This is a well developed, well nourished patient who is awake, alert, sb4 and in no acute distress. Head/Face: Normocephalic, atraumatic. Eyes: Extra-ocular motions intact. Periorbital areas with no swelling, redness, or edema. Cardiovascular: Regular rate and rhythm with a normal S1 and S2. Respiratory: Lungs have equal breath sounds bilaterally, clear to auscultation and percussion. No rales, rhonchi or wheezes noted. No increased work of breathing, no retractions or nasal flaring. Abdomen/GI: Soft, non-tender, no distension. Skin: Warm, dry with normal turgor. Normal color with no rashes, no lesions, and no evidence of cellulitis. MS/ Extremity: Pulses equal, no cyanosis. Neurovascular intact. Full, normal range of motion. 11:43 ENT: Ear canal(s): erythema, that is minimal, of the right canal, TM's: are normal, Nose: is normal, Posterior pharynx: Airway: patent, Tonsils: bilaterally enlarged, with erythema, no exudate, no ulcerations, Uvula: midline. Vital Signs: 11:31 BP 125 / 86; Pulse 78; Resp 17; Temp 98.8(O); Pulse Ox 98% on R/A; Weight 140.61 kg; me1 Height 5 ft. 5 in. ; 11:41 BP 125 / 86; Pulse 78; Resp 17; Temp 98.8; Pulse Ox 98% ; me1 13:03 BP 138 / 103; Pulse 59; Resp 18; Temp 98(O); Pulse Ox 97% ; nj1 11:31 Body Mass Index 51.59 (140.61 kg, 165.1 cm) me1 MDM: 11:28 Patient medically screened. sb4 11:43 Differential diagnosis: viral Infection, bacterial infection, URI, bronchitis, sb4 pneumonia. 12:50 Data reviewed: vital signs, nurses notes, lab test result(s), and as a result, I will sb4 discharge patient. Counseling: I had a detailed discussion with the patient and/or guardian regarding: the historical points, exam findings, and any diagnostic results supporting the discharge/admit diagnosis, lab results, to return to the emergency department if symptoms worsen or persist or if there are any questions or concerns that arise at home. 09/30 11:42 Order name: SARS RAPID; Complete Time: 12:13 sb4 09/30 11:42 Order name: Flu; Complete Time: 12:50 sb4 09/30 11:42 Order name: Strep sb4 09/30 12:49 Order name: Throat Culture EDMS Administered Medications: No medications were administered Disposition Summary: 09/30/22 12:51 Discharge Ordered Location: Home sb4 Problem: an ongoing problem sb4 Symptoms: are unchanged sb4 Condition: Stable sb4 Diagnosis - Acute upper respiratory infection, unspecified sb4 Followup: sb4 - With: Private Physician - When: As needed - Reason: Recheck today's complaints, Continuance of care, Re-evaluation by your physician Discharge Instructions: - Discharge Summary Sheet sb4 - Upper Respiratory Infection, Adult, [id number] sb4 Forms: - Work release form sb4 - Medication Reconciliation Form sb4 - Thank You Letter sb4 - Antibiotic Education sb4 - Prescription Opioid Use sb4 - Patient Portal Instructions sb4 Prescriptions: - Augmentin 875-125 mg Oral Tablet - take 1 tablet by ORAL route every 12 hours for 10 days; 20 tablet; Refills: 0, sb4 Product Selection Permitted - Medrol (Nickolas) 4 mg Oral Tablets, Dose Pack - take 1 tablet by ORAL route as directed - follow package instructions; 1 sb4 packet; Refills: 0, Product Selection Permitted Signatures: Dispatcher [employer] Roxanna Phillips PA-C PAPavel sb4 Barb Feliciano, RN RN me1
--- NOTE | 2022-09-30 12:52 | ER ---
Nurse's Notes [facility] Name: Ximena Zheng Age: 27 yrs Sex: Female : 1995 Arrival Date: 09/30/2022 Time: 11:25 Bed 15 Private MD: Diagnosis: Acute upper respiratory infection, unspecified Presentation: 09/30 11:31 Chief complaint: Patient states: chest congestion, sore throat, right ear pain. mn1 Coronavirus screen: Vaccine status: Patient reports being unvaccinated. chills, congestion, cough unrelated to allergies, fatigue, fever, muscle pain, runny nose. Ebola Screen: No symptoms or risks identified at this time. Initial Sepsis Screen: Does the patient meet any 2 criteria? No. Patient's initial sepsis screen is negative. Does the patient have a suspected source of infection? Yes: Productive cough/pneumonia. Risk Assessment: Do you want to hurt yourself or someone else? Patient reports no desire to harm self or others. Onset of symptoms was September 23, 2022. 11:31 Method Of Arrival: Ambulatory [facility] [place] 11:31 Acuity: PEDRO 4 mn1 Triage Assessment: 11:39 General: Appears uncomfortable, obese, well groomed, Behavior is calm, cooperative, me1 appropriate for age. Pain: Complains of pain in right ear Quality of pain is described as aching. EENT: Reports nasal congestion pain in right ear. Neuro: Level of Consciousness is awake, alert, obeys commands, Oriented to person, place, time, situation. Cardiovascular: Capillary refill < 3 seconds Patient's skin is warm and dry. Respiratory: Respiratory effort is even, unlabored, Respiratory pattern is regular, symmetrical. 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 - Social history:: Smoking status: Reported history of juuling and/or vaping. Screenin:16 [facility] ED Fall Risk Assessment (Adult) History of falling in the last 3 months, nj1 including since admission Score/Fall Risk Level 0 - 2 = Low Risk Oriented to surroundings, Maintained a safe environment, Hourly rounding (assess needs \T\ fall precautionary measures) done. Abuse screen: Denies threats or abuse. Denies injuries from another. Nutritional screening: No deficits noted. Tuberculosis screening: No symptoms or risk factors identified. Assessment: 11:50 Reassessment: See triage assessment. nj1 12:42 Reassessment: Patient appears in no apparent distress at this time. Patient and/or nj1 family updated on plan of care and expected duration. Pain level reassessed. Patient is alert, oriented x 3, equal unlabored respirations, skin warm/dry/pink. Pain: Complains of pain in right ear Pain currently is 6 out of 10 on a pain scale. Vital Signs: 11:31 BP 125 / 86; Pulse 78; Resp 17; Temp 98.8(O); Pulse Ox 98% on R/A; Weight 140.61 kg; me1 Height 5 ft. 5 in. ; 11:41 BP 125 / 86; Pulse 78; Resp 17; Temp 98.8; Pulse Ox 98% ; me1 13:03 BP 138 / 103; Pulse 59; Resp 18; Temp 98(O); Pulse Ox 97% ; nj1 11:31 Body Mass Index 51.59 (140.61 kg, 165.1 cm) mn1 ED Course: 11:28 Patient arrived in ED. mr 11:28 Roxanna Hanks PA-C is PHCP. sb4 11:28 Ministerio Hung MD is Attending Physician. sb4 11:37 Emi Ji, JOSE is Primary Nurse. nj1 11:39 Triage completed. mn1 11:50 Patient has correct armband on for positive identification. Bed in low position. Call nj1 light in reach. Provided Education on: fall precautions, call light. 12:17 Arm band placed on right wrist. nj1 13:04 No provider procedures requiring assistance completed. Patient did not have IV access [facility] during this emergency room visit. Administered Medications: No medications were administered Medication: 13:04 VIS not applicable for this client. nj1 Outcome: 12:51 Discharge ordered by . sb4 13:04 Discharged to home ambulatory. nj1 13:04 Condition: stable 13:04 Discharge instructions given to patient, Instructed on discharge instructions, follow up and referral plans. medication usage, Demonstrated understanding of instructions, follow-up care, medications, Prescriptions given X 2. 13:04 Patient left the ED. nj1 Signatures: Lynn Sullivan Sophia, PA-C PAPavel sb4 Emi Ji RN RN nj1 Barb Feliciano RN RN me1
[2022-09-30 13:32] VITALS: BP 138/103; TEMP 98; O2SAT 97
== END 2022-09-30 13:04 | disposition home or self-care (01) ==
LOC: ER 11:25
DX: J06.9 Acute upper respiratory infection, unspecified (principal); Z20.822 Contact with and (suspected) exposure to COVID-19
CPT/HCPCS: 36415; 87070; 87081; 87804; 87811

== ENCOUNTER 2023-06-03 19:13 | Emergency (ER) | payer OTHER ==
--- OUTSIDE RECORDS SUMMARY | 2023-06-03 19:18 | XMS REPORT | Continuity of Care Document ---
Author Name Unknown Address [address] [facility] [address] [place] [address] [facility] thconnect Address [address] [facility]. [address] [place] [address] Care Team Providers Care Retail Team Leader Name Role Phone Annetta Leone Primary Care Physician [phone] ANNETTA WHITLOCK Attending Clinician Unavailable JULEE REDDY Attending Clinician Unavailable Annetta Leone Attending Clinician [phone] Doctor Unassigned, [place] Attending Clinician U navailable Lab, Ang - Db Attending Clinician Unavailable Julee Reddy MD Attending Clinician [phone] Pcp, Patient Does Not Have A Attending Clinician REBECCA CURIEL Attending Clinician Unavailable Rebecca Curiel MD Attending Clinician [phone] George Monreal MD Attending Clinician [phone] GEORGE MONREAL Attending Clinician Unavailable Only, Adc Test Attending Clinician Unavailable Pob, Adc Lab Main Attending Clinician Unavailabl e OMAR CHAUDHRY Attending Clinician Unavaila OMAR Gee Attending Clinician Unavaila ble Ultrasound, Ang-Mfm Attending Clinician Unavaila ble Laila Banerjee MD, Mark Anthony Attending Clinician + CARLIN KOUTROUVELIS, HOPSON Attending Clinician Unav ailable Ultrasound, Adc Mfm Attending Clinician Unavaila ble Chuck DO Ministerio Attending Clinician [phone] Poornima LEIGH Attending Clinician Unavailable Poornima Crabtree Attending Clinician [phone] NASIR GARCIA Attending Clinician Unavailable Nasir Garcia DO Attending Clinician [phone] LYNN SULTANA Attending Clinician Unavailabl tato Wills [employer] SUPERVISORJanet Attending Clinician [phone] Akinsipe WHCNPEsther Attending Clinician + ISIDRA RASMUSSEN Attending Clinician Unavailable TRACEY ZUÑIGA Attending Clinician Unavailable GEORGE MONREAL Admitting Clinician Unavailable George Monreal MD Admitting Clinician [phone] REBECCA CURIEL Admitting Clinician Unavailable NASIR GARCIA Admitting Clinician Unavailable Payers Payer Name Policy Type Policy Number Effective Date Expirati on Date Source CIGNA II [id number] 2020 00:00:00 [place] [id number] 2021 00:00:00 [facility] [id number] 2021 00:00:00 2021 00:00:00 Problems Condition Name Condition Details Condition Category Status Onset Date Resolution Date Last Treatment Date Treating Clinician Comments Source Vitamin D deficiency Vitamin D deficiency Disease Active 3- 00:00: 00 [facility] Anemia, unspecifie d type Anemia, unspecifie d type Disease Active 3-01 00:00: 00 [facility] Psoriasis/ like disorders Psoriasis/ like disorders Disease Active 9-15 00:00: 00 [facility] Liveborn , of mann , born in hospital by vaginal delivery Liveborn infant, of mann , born in hospital by vaginal delivery Disease Active 7-13 00:00: 00 [facility] 38 weeks gestation of 38 weeks gestation of Disease Active 7-11 00:00: 00 [facility] Supervisio n of high risk in third trimester Supervisio n of high risk in third trimester Disease Active 2020-03 00:00: 00 [facility] Chronic hypertensi on affecting Chronic hypertensi on affecting Disease Active 2020-03 00:00: 00 [facility] Bariatric surgery status complicati ng , third trimester Bariatric surgery status complicati ng , third trimester Disease Active 2020-03 00:00: 00 [facility] Obesity in Obesity in Disease Active 2020-03 00:00: 00 [facility] Trichomona l vulvovagin itis Trichomona l vulvovagin itis Disease Active 05-19 00:00: 00 Overview: Formattin g of this note might be different from the original. Noted on pap [facility] Morbid obesity with body mass index (BMI) of 40.0 or higher Morbid obesity with body mass index (BMI) of 40.0 or higher Disease Active 08-22 00:00: 00 [facility] Hypertensi on Hypertensi on Disease Active Overview: Formattin g of this note might be different from the original. during and after gastric sleeve surgery [facility] Allergies, Adverse Reactions, Alerts Allergy Name Allergy Type Status Severity Reaction(s) Onset Date Inactive Date Treating Clinician Comments Source NO KNOWN ALLERGIE S Drug Class Active [facility] Social History Social Habit Start Date Stop Date Quantity Comments Source ASSERTION 2020-12-26 00:00:00 [facility] History of tobacco use 2015-05-13 00:00:00 Cigarette Smoker [facility] Gender identity [facility] SDOH Alcohol Frequency [facility] History SDOH Alcohol Std Drinks [facility] History SDOH Alcohol Binge [facility] Alcohol intake 2023-04-30 00:00:00 2023-04-30 00:00:00 Ex-drinker (finding) [facility] History of Social function 2022-11-13 00:00:00 2022-11-13 00:00:00 [facility] Exposure to SARS-CoV-2 (event) 2022-04-18 00:00:00 2022-04-28 08:29:00 Not sure [facility] Tobacco use and exposure 2021-10-29 00:00:00 2021-10-29 00:00:00 Smokeless tobacco non-user [facility] Tobacco Comment 2021-10-29 00:00:00 2021-10-29 00:00:00 smokes 6 x per day [facility] Education - What is the highest level of school you have completed or the highest degree you have received? 2021-09-09 00:00:00 2021-09-09 00:00:00 High school graduate [facility] Alcohol Comment 2015-08-22 00:00:00 2015-08-22 00:00:00 socially [facility] Sex Assigned At 1995 00:00:00 1995 00:00:00 [facility] Smoking Status Start Date Stop Date Source Ex-smoker 2021-10-29 00:00:00 2021-10-29 00:00:00 [facility] Medications Ordered Medication Name Filled Medication Name Start Date Stop Date Current Medication? Ordering Clinician Indication Dosage Frequency Signature (SIG) Comments Components Source tirzepatide , weight loss, (ZEPBOUND) 2.5 mg/0.5 mL subcutaneou s injection 05-17 00:00: 00 Yes [id number] 2.5mg inject 2.5 mg under the skin weekly. [facility] lisinopriL 10 mg tablet 04-29 00:00: 00 Yes [id number] 10mg Take 1 tablet by mouth in the morning. [facility] amLODIPine 5 mg tablet 04-29 00:00: 00 Yes [id number] 5mg Take 1 tablet by mouth in the morning. [facility] ergocalcife rol, vitamin d2, 1,250 mcg (50,000 unit) capsule 04-29 00:00: 00 Yes [id number] 19465B Take 1 capsule by mouth weekly. [facility] ferrous sulfate 325 mg (65 mg iron) tablet 04-29 00:00: 00 Yes [id number] 102 325mg Take 1 tablet by mouth in the morning and 1 tablet in the evening. [facility] semaglutide , weight loss, (WEGOVY) 0.25 mg/0.5 mL PnIj SC injection 04-29 00:00: 00 05-17 00:00 :00 No [id number] .25mg inject 0.25 mg under the skin weekly. [facility] clobetasoL 0.05 % ointment 03-31 00:00: 00 Yes [id number] Apply to area(s) 2 (two) times daily as needed for Rash or Itching. Avoid on face, armpits, and groin. Stop when clear, restart if rash returns. [facility] mometasone 0.1 % lotion 03-31 00:00: 00 Yes [id number] Apply to area(s) 2 (two) times daily as needed for Rash or Itching (Scalp). Avoid on face (do not let medication drip onto face), armpits, and groin. Stop when clear, restart if rash or itching returns. [facility] semaglutide , weight loss, (WEGOVY) 0.25 mg/0.5 mL PnIj SC injection 11-18 00:00: 00 04-29 00:00 :00 No [id number] .25mg inject 0.25 mg under the skin weekly. [facility] semaglutide , weight loss, (WEGOVY) 0.25 mg/0.5 mL PnIj SC injection 11-16 00:00: 00 Yes [id number] .25mg inject 0.25 mg under the skin weekly. [facility] triamcinolo ne acetonide 0.1 % ointment 11-16 00:00: 00 Yes [id number] Apply to area(s) 2 (two) times daily. [facility] ergocalcife rol, vitamin d2, 1,250 mcg (50,000 unit) capsule 11-16 00:00: 00 04-29 00:00 :00 No [id number] 01001O Take 1 capsule by mouth weekly. [facility] lisinopriL 10 mg tablet 11-16 00:00: 00 04-29 00:00 :00 No [id number] 10mg Take 1 tablet by mouth in the morning. [facility] ergocalcife rol, vitamin d2, 1,250 mcg (50,000 unit) capsule 11-15 00:00: 00 11-16 00:00 :00 No [id number] 05082H Take 1 capsule by mouth weekly. [facility] semaglutide , weight loss, (WEGOVY) 0.25 mg/0.5 mL PnIj SC injection 11-13 00:00: 00 11-16 00:00 :00 No [id number] .25mg inject 0.25 mg under the skin weekly. [facility] triamcinolo ne acetonide 0.1 % ointment 11-13 00:00: 00 11-16 00:00 :00 No [id number] Apply to area(s) 2 (two) times daily. [facility] lisinopriL 10 mg tablet 11-13 00:00: 00 11-16 00:00 :00 No [id number] 10mg Take 1 tablet by mouth in the morning. [facility] amLODIPine 5 mg tablet 10-01 00:00: 00 04-29 00:00 :00 No [id number] 5mg Take 1 tablet by mouth in the morning. [facility] ferrous sulfate (IRON ORAL) 09-10 08:10: 58 09-10 00:00 :00 No Take by mouth. [facility] aspirin 81 mg EC tablet 09-10 08:10: 58 09-10 00:00 :00 No 81mg Take 81 mg by mouth daily. [facility] vitamin w/FA tablet 09-10 00:00: 00 Yes [id number] 102 1{tbl} Take 1 tablet by mouth in the morning. [facility] vitamin w/FA tablet 09-10 00:00: 00 Yes [id number] 102 1{tbl} Take 1 tablet by mouth in the morning. [facility] ferrous sulfate 325 mg (65 mg iron) tablet 09-10 00:00: 00 04-29 00:00 :00 No [id number] 102 325mg Take 1 tablet by mouth in the morning and 1 tablet in the evening. [facility] docusate 100 mg capsule 09-10 00:00: 00 10-29 00:00 :00 No [id number] 102 200mg Take 2 capsules by mouth once daily as needed for Constipati on. [facility] ibuprofen 600 mg tablet 09-10 00:00: 00 10-29 00:00 :00 No [id number] 102 600mg Take 1 tablet by mouth every 6 (six) hours as needed (Pain). Take with food or milk. [facility] rho(D) immune globulin (RHOGAM) syringe 300 mcg 09-09 18:00: 47 Yes 300ug 300 mcg, Intramuscu lar, ONCE, For 1 dose, Conditiona l, Routine [facility] witch [place] (TUCKS) 50 % topical pad 09-09 18:00: 39 Yes Topical, Q4HPRN, Starting on Wed09/09/21 at 1300, Until Discontinu ed, Routine, rectal/hem orrhoidal pain [facility] HYDROcodone -acetaminop hen (NORCO 5) 5-325 mg tablet 1 tablet 09-09 18:00: 39 Yes 1{tbl} 1 tablet, Oral, Q6HPRN, Starting on Wed09/09/21 at 1300, Until Discontinu ed, Routine, Pain (scale 7-10) [facility] ibuprofen (IBU) tablet 600 mg 09-09 18:00: 39 Yes 600mg 600 mg, Oral, Q6HPRN, Starting on Wed09/09/21 at 1300, Until Discontinu ed, Routine, Pain (scale 4-6) [facility] acetaminoph en (TYLENOL) tablet 650 mg 09-09 18:00: 39 Yes 650mg 650 mg, Oral, Q6HPRN, Starting on Wed09/09/21 at 1300, Until Discontinu ed, Routine, Pain (scale 1-3) [facility] diphenhydrA MINE (BENADRYL) tablet 25 mg 09-09 18:00: 39 Yes 25mg 25 mg, Oral, Q6HPRN, Starting on Wed09/09/21 at 1300, Until Discontinu ed, Routine, Sleep, Itching [facility] ondansetron (ZOFRAN (PF)) injection 4 mg 09-09 18:00: 39 Yes 4mg 4 mg, Slow IV Push, Q8HPRN, Starting on Wed09/09/21 at 1300, Until Discontinu ed, Routine, Nausea and Vomiting (N/V) [facility] simethicone (GAS RELIEF (SIMETHICON E)) chewable tablet 160 mg 09-09 18:00: 39 Yes 160mg 160 mg, Oral, PC+HSPRN, Starting on Wed09/09/21 at 1300, Until Discontinu ed, Routine, Gas [facility] docusate (COLACE) capsule 200 mg 09-09 18:00: 39 Yes 200mg 200 mg, Oral, QDAILYPRN, Starting on Wed09/09/21 at 1300, Until Discontinu ed, Routine, Constipati on [facility] magnesium hydroxide (MILK OF MAGNESIA) 400 mg/5 mL suspension 30 mL 09-09 18:00: 39 Yes 30mL 30 mL, Oral, QDAILYPRN, Starting on Wed09/09/21 at 1300, Until Discontinu ed, Routine, Constipati on [facility] benzocaine- menthol (DERMOPLAST ) 20-0.5 % topical spray 09-09 18:00: 39 Yes Topical, PRN, Starting on Wed09/09/21 at 1300, Until Discontinu ed, Routine, Perineum discomfort [facility] butalbital- acetaminoph en-caff (ESGIC) 50-325-40 mg tablet 1 tablet 09-09 11:54: 01 09-09 18:00 :45 No 1{tbl} 1 tablet, Oral, Q4HPRN, Starting on Wed09/09/21 at 0654, Until Wed09/09/21 at 1300, Routine, headache [facility] D5W-LR IV infusion 1,000 mL 09-09 09:45: 00 09-09 18:00 :45 No 1000mL at 125 mL/hr, IV Infusion, CONTINUOUS , Starting on Wed09/09/21 at 0445, Until Wed09/09/21 at 1300, Routine [facility] lactated ringers IV infusion 500 mL 09-09 09:45: 00 09-09 15:47 :00 No 500mL at 999 mL/hr, 500 mL, IV Infusion, ONCE, 1 dose, On Wed09/09/21 at 0445, Routine [facility] FENTanyl PF (SUBLIMAZE (PF)) injection 100 mcg 09-09 09:31: 43 09-09 18:00 :45 No 100ug 100 mcg, Slow IV Push, Q1HPRN, Starting on Wed09/09/21 at 0431, Until Wed09/09/21 at 1300, Routine, contractio n pain without an epidural and SVE < 8 cm and Cat I strip [facility] proMETHazin e (PHENERGAN) 25 mg in NaCl 0.9% (NS) 50 mL IV piggyback 09-09 09:31: 43 09-09 18:00 :45 No 25mg 25 mg, IV Piggyback, Q4HPRN, Starting on Wed09/09/21 at 0431, Until Wed09/09/21 at 1300, Routine, Nausea and Vomiting (N/V) [facility] oxytocin (PITOCIN) 30 units in NS 500 mL IV infusion 09-09 09:31: 43 09-09 18:00 :45 No 2mU/min at 2-40 mL/hr, IV Infusion, TITRATE, Starting on Wed09/09/21 at 0431, Until Wed09/09/21 at 1300, FABIO [facility] ferrous sulfate (IRON ORAL) 07-22 16:08: 41 Yes Take by mouth. [facility] aspirin 81 mg EC tablet 07-22 16:08: 41 Yes 81mg Take 81 mg by mouth daily. [facility] metroNIDAZO LE (FLAGYL) tablet 500 mg 07-10 18:15: 00 Yes 500mg 500 mg, Oral, Q12H, First dose on Eli 07/10/21 at 1315, Until Discontinu ed, Routine
Reason for Anti-Infec tive: Documented Infection< br>Documen stefany Infection Site: Pelvic
Duration of Therapy: 7 days [facility] ferrous sulfate (IRON ORAL) 07-10 13:45: 27 Yes Take by mouth. [facility] aspirin 81 mg EC tablet 07-10 13:45: 27 Yes 81mg Take 81 mg by mouth daily. [facility] proMETHazin e 25 mg tablet 07-10 00:00: 00 09-10 00:00 :00 No [id number] 25mg Take 1 tablet by mouth every 6 (six) hours as needed for Nausea and Vomiting (N/V). [facility] metroNIDAZO LE 500 mg tablet 07-10 00:00: 00 07-22 00:00 :00 No [id number] 500mg Take 1 tablet by mouth every 12 (twelve) hours. [facility] ferrous sulfate 325 mg (65 mg iron) tablet 07-04 00:00: 00 09-10 00:00 :00 No [id number] 325mg Take 1 tablet by mouth daily. [facility] Blood-Gluco se Meter Kit 06-20 00:00: 00 09-10 00:00 :00 No Use as directed [facility] blood sugar diagnostic strip 06-20 00:00: 00 09-10 00:00 :00 No Use as directed [facility] Alcohol Swabs PadM 06-20 00:00: 00 09-10 00:00 :00 No Apply to area(s) 4 (four) times daily. [facility] lancets 28 gauge Misc 06-20 00:00: 00 09-10 00:00 :00 No Use as directed [facility] ferrous sulfate 325 mg (65 mg iron) tablet 06-20 00:00: 00 07-04 00:00 :00 No [id number] 325mg Take 1 tablet by mouth daily. [facility] CALCIUM ORAL 04-30 15:33: 42 Yes Take by mouth. [facility] elderberry fruit (ELDERBERRY ORAL) 03-27 17:14: 34 03-27 00:00 :00 No Take by mouth. [facility] aspirin 81 mg EC tablet 03-27 17:14: 13 Yes 81mg Take 81 mg by mouth daily. [facility] Blood Pressure Monitor Kit 2020-03 00:00: 00 09-10 00:00 :00 No Use as directed [facility] ferrous sulfate (IRON ORAL) 2020-03 13:46: 16 Yes Take by mouth. [facility] multivit with calcium,iro n,min (WOMEN'S MULTIPLE VITAMINS ORAL) 2020-03 14:10: 03 01-30 00:00 :00 No Take by mouth. [facility] PNV Cmb#21-Iron -Folic Acid 14 mg iron- 400 mcg Tab 2020-03 00:00: 00 09-10 00:00 :00 No Take 1 TAB-CAP/M2 by mouth daily. [facility] cephALEXin (KEFLEX) 500 mg capsule 2020-03 00:00: 00 01-27 05:59 :00 No [id number] 500mg Take 1 capsule by mouth 3 (three) times daily for 10 days. [facility] Immunizations Ordered Immunization Name Filled Immunization Name Date Status Comments Source HPV9 2017-05-12 00:00:00 Completed [facility] HPV9 2017-05-12 00:00:00 Completed [facility] HPV9 2017-05-12 00:00:00 Completed [facility] HPV9 2017-05-12 00:00:00 Completed [facility] HPV9 2017-05-12 00:00:00 Completed [facility] HPV9 2017-05-12 00:00:00 Completed [facility] HPV9 2017-05-12 00:00:00 Completed [facility] HPV9 2017-05-12 00:00:00 Completed [facility] HPV9 2017-05-12 00:00:00 Completed [facility] HPV9 2017-05-12 00:00:00 Completed [facility] HPV9 2017-05-12 00:00:00 Completed [facility] HPV9 2017-05-12 00:00:00 Completed [facility] HPV9 2017-05-12 00:00:00 Completed [facility] HPV9 2017-05-12 00:00:00 Completed [facility] HPV9 2017-05-12 00:00:00 Completed [facility] HPV9 2017-05-12 00:00:00 Completed [facility] HPV9 2017-05-12 00:00:00 Completed [facility] HPV9 2017-05-12 00:00:00 Completed [facility] HPV9 2017-05-12 00:00:00 Completed [facility] HPV9 2017-05-12 00:00:00 Completed [facility] HPV9 2017-05-12 00:00:00 Completed [facility] HPV9 2017-05-12 00:00:00 Completed [facility] HPV9 2017-05-12 00:00:00 Completed [facility] HPV9 2017-05-12 00:00:00 Completed [facility] HPV9 2017-05-12 00:00:00 Completed [facility] HPV9 2017-05-12 00:00:00 Completed [facility] HPV9 2017-05-12 00:00:00 Completed [facility] HPV9 2017-05-12 00:00:00 Completed [facility] HPV9 2017-05-12 00:00:00 Completed [facility] HPV9 2017-05-12 00:00:00 Completed [facility] HPV9 2017-05-12 00:00:00 Completed [facility] HPV9 2017-05-12 00:00:00 Completed [facility] Td 2009-03-01 00:00:00 Completed [facility] Td 2009-03-01 00:00:00 Completed [facility] Td 2009-03-01 00:00:00 Completed [facility] Td 2009-03-01 00:00:00 Completed [facility] Td 2009-03-01 00:00:00 Completed [facility] Td 2009-03-01 00:00:00 Completed [facility] Td 2009-03-01 00:00:00 Completed [facility] Td 2009-03-01 00:00:00 Completed [facility] Td 2009-03-01 00:00:00 Completed [facility] Td 2009-03-01 00:00:00 Completed [facility] Td 2009-03-01 00:00:00 Completed [facility] Td 2009-03-01 00:00:00 Completed [facility] TD, NOS 2009-03-01 00:00:00 Completed [facility] TD, NOS 2009-03-01 00:00:00 Completed [facility] TD, NOS 2009-03-01 00:00:00 Completed [facility] TD, NOS 2009-03-01 00:00:00 Completed [facility] TD, NOS 2009-03-01 00:00:00 Completed [facility] TD, NOS 2009-03-01 00:00:00 Completed [facility] TD, NOS 2009-03-01 00:00:00 Completed [facility] TD, NOS 2009-03-01 00:00:00 Completed [facility] TD, NOS 2009-03-01 00:00:00 Completed [facility] TD, NOS 2009-03-01 00:00:00 Completed [facility] TD, NOS 2009-03-01 00:00:00 Completed [facility] TD, NOS 2009-03-01 00:00:00 Completed [facility] TD, NOS 2009-03-01 00:00:00 Completed [facility] Td 2009-03-01 00:00:00 Completed [facility] Td 2009-03-01 00:00:00 Completed [facility] Td 2009-03-01 00:00:00 Completed [facility] Td 2009-03-01 00:00:00 Completed [facility] Td 2009-03-01 00:00:00 Completed [facility] Td 2009-03-01 00:00:00 Completed [facility] Td 2009-03-01 00:00:00 Completed [facility] TD, NOS Unknown Completed [facility] HPV9 Unknown Completed [facility] TD, NOS Unknown Completed [facility] HPV9 Unknown Completed [facility] TD, NOS Unknown Completed [facility] HPV9 Unknown Completed [facility] TD, NOS Unknown Completed [facility] HPV9 Unknown Completed [facility] TD, NOS Unknown Completed [facility] HPV9 Unknown Completed [facility] TD, NOS Unknown Completed [facility] HPV9 Unknown Completed [facility] TD, NOS Unknown Completed [facility] HPV9 Unknown Completed [facility] TD, NOS Unknown Completed [facility] HPV9 Unknown Completed [facility] TD, NOS Unknown Completed [facility] HPV9 Unknown Completed [facility] TD, NOS Unknown Completed [facility] HPV9 Unknown Completed [facility] TD, NOS Unknown Completed [facility] HPV9 Unknown Completed [facility] TD, NOS Unknown Completed [facility] HPV9 Unknown Completed [facility] TD, NOS Unknown Completed [facility] HPV9 Unknown Completed [facility] TD, NOS Unknown Completed [facility] HPV9 Unknown Completed [facility] TD, NOS Unknown Completed [facility] HPV9 Unknown Completed [facility] TD, NOS Unknown Completed [facility] HPV9 Unknown Completed [facility] TD, NOS Unknown Completed [facility] HPV9 Unknown Completed [facility] TD, NOS Unknown Completed [facility] HPV9 Unknown Completed [facility] Vital Signs Vital Name Observation Time Observation Value Comments S kyle Systolic blood pressure 2023-04-30 15:05:00 150 mm[Hg] [facility] Diastolic blood pressure 2023-04-30 15:05:00 102 mm[Hg] [facility] Heart rate 2023-04-30 15:04:00 75 /min [facility] Body height 2023-04-30 15:04:00 165.1 cm [facility] Body weight 2023-04-30 15:04:00 137.621 kg [facility] BMI 2023-04-30 15:04:00 50.49 kg/m2 [facility] Oxygen saturation in Arterial blood by Pulse oximetry 2023-04-30 15:04:00 99 /min [facility] Systolic blood pressure 2022-11-13 18:11:00 126 mm[Hg] [facility] Diastolic blood pressure 2022-11-13 18:11:00 90 mm[Hg] [facility] Heart rate 2022-11-13 18:11:00 83 /min [facility] Body height 2022-11-13 18:11:00 165.1 cm [facility] Body weight 2022-11-13 18:11:00 137.531 kg [facility] BMI 2022-11-13 18:11:00 50.46 kg/m2 [facility] Oxygen saturation in Arterial blood by Pulse oximetry 2022-11-13 18:11:00 100 /min [facility] Systolic blood pressure 2022-04-28 14:50:00 135 mm[Hg] [facility] Diastolic blood pressure 2022-04-28 14:50:00 90 mm[Hg] [facility] Heart rate 2022-04-28 14:50:00 85 /min [facility] Body temperature 2022-04-28 14:50:00 36.83 Ariane [facility] Respiratory rate 2022-04-28 14:50:00 16 /min [facility] Body height 2022-04-28 14:50:00 165.1 cm [facility] Body weight 2022-04-28 14:50:00 137.712 kg [facility] BMI 2022-04-28 14:50:00 50.52 kg/m2 [facility] Oxygen saturation in Arterial blood by Pulse oximetry 2022-04-28 14:50:00 97 /min [facility] Systolic blood pressure 2021-10-29 20:55:00 125 mm[Hg] [facility] Diastolic blood pressure 2021-10-29 20:55:00 81 mm[Hg] [facility] Heart rate 2021-10-29 20:55:00 82 /min [facility] Body temperature 2021-10-29 20:55:00 36.83 Ariane [facility] Respiratory rate 2021-10-29 20:55:00 18 /min [facility] Body height 2021-10-29 20:55:00 165.1 cm [facility] Body weight 2021-10-29 20:55:00 135.263 kg [facility] BMI 2021-10-29 20:55:00 49.62 kg/m2 [facility] Oxygen saturation in Arterial blood by Pulse oximetry 2021-10-29 20:55:00 97 /min [facility] Systolic blood pressure 2021-10-01 18:16:00 150 mm[Hg] [facility] Diastolic blood pressure 2021-10-01 18:16:00 105 mm[Hg] [facility] Heart rate 2021-10-01 18:06:00 75 /min [facility] 2021-10-01 18:06:00 36.72 Ariane [facility] Respiratory rate 2021-10-01 18:06:00 19 /min [facility] Body height 2021-10-01 18:06:00 165.1 cm [facility] Body weight 2021-10-01 18:06:00 116.574 kg [facility] BMI 2021-10-01 18:06:00 42.77 kg/m2 [facility] Systolic blood pressure 2021-09-10 12:30:00 136 mm[Hg] [facility] Diastolic blood pressure 2021-09-10 12:30:00 83 mm[Hg] [facility] Heart rate 2021-09-10 12:25:00 61 /min Un[facility] Body temperature 2021-09-10 12:25:00 36.83 Ariane [facility] Respiratory rate 2021-09-10 12:25:00 16 /min [facility] Oxygen saturation in Arterial blood by Pulse oximetry 2021-09-10 12:25:00 100 /min [facility] Body height 2021-09-09 10:19:00 165.1 cm [facility] Body weight 2021-09-09 10:19:00 141.069 kg [facility] BMI 2021-09-09 10:19:00 51.75 kg/m2 [facility] Systolic blood pressure 2021-09-05 19:05:00 139 mm[Hg] [facility] Diastolic blood pressure 2021-09-05 19:05:00 87 mm[Hg] [facility] Heart rate 2021-09-05 19:05:00 73 /min [facility] Body temperature 2021-09-05 19:05:00 36.56 Ariane [facility] Respiratory rate 2021-09-05 19:05:00 18 /min [facility] Body height 2021-09-05 19:05:00 165.1 cm [facility] Body weight 2021-09-05 19:05:00 143.79 kg [facility] BMI 2021-09-05 19:05:00 52.75 kg/m2 [facility] Systolic blood pressure 2021-08-27 21:08:00 123 mm[Hg] [facility] Diastolic blood pressure 2021-08-27 21:08:00 87 mm[Hg] [facility] Heart rate 2021-08-27 21:08:00 75 /min [facility] Body temperature 2021-08-27 21:08:00 36.94 Ariane [facility] Respiratory rate 2021-08-27 21:08:00 18 /min [facility] Body height 2021-08-27 21:08:00 165.1 cm [facility] Body weight 2021-08-27 21:08:00 143.155 kg [facility] BMI 2021-08-27 21:08:00 52.52 kg/m2 [facility] Systolic blood pressure 2021-08-07 21:14:00 118 mm[Hg] [facility] Diastolic blood pressure 2021-08-07 21:14:00 82 mm[Hg] [facility] Heart rate 2021-08-07 21:14:00 66 /min [facility] Body temperature 2021-08-07 21:14:00 36.83 Ariane [facility] Respiratory rate 2021-08-07 21:14:00 18 /min [facility] Body height 2021-08-07 21:14:00 165.1 cm [facility] Body weight 2021-08-07 21:14:00 143.79 kg [facility] BMI 2021-08-07 21:14:00 52.75 kg/m2 [facility] Systolic blood pressure 2021-07-22 21:07:00 109 mm[Hg] [facility] Diastolic blood pressure 2021-07-22 21:07:00 74 mm[Hg] [facility] Heart rate 2021-07-22 21:07:00 76 /min [facility] Body temperature 2021-07-22 21:07:00 36.61 Ariane [facility] Body height 2021-07-22 21:07:00 165.1 cm [facility] Body weight 2021-07-22 21:07:00 142.974 kg [facility] BMI 2021-07-22 21:07:00 52.45 kg/m2 [facility] Systolic blood pressure 2021-07-10 16:13:00 112 mm[Hg] [facility] Diastolic blood pressure 2021-07-10 16:13:00 58 mm[Hg] [facility] Heart rate 2021-07-10 16:13:00 78 /min [facility] Body temperature 2021-07-10 16:13:00 36.67 Ariane [facility] Respiratory rate 2021-07-10 16:13:00 18 /min [facility] Body height 2021-07-10 16:13:00 165.1 cm [facility] Body weight 2021-07-10 16:13:00 142.883 kg [facility] BMI 2021-07-10 16:13:00 52.42 kg/m2 [facility] Systolic blood pressure 2021-07-04 21:59:00 125 mm[Hg] [facility] Diastolic blood pressure 2021-07-04 21:59:00 84 mm[Hg] [facility] Heart rate 2021-07-04 21:58:00 90 /min Un[facility] Body temperature 2021-07-04 21:58:00 36.83 Ariane [facility] Respiratory rate 2021-07-04 21:58:00 19 /min [facility] Body height 2021-07-04 21:58:00 165.1 cm [facility] Body weight 2021-07-04 21:58:00 144.788 kg [facility] BMI 2021-07-04 21:58:00 53.12 kg/m2 [facility] Procedures Procedure Date / Time Performed Performing Clinician Source INSURANCE CORRESPONDENCE 2023-05-07 06:01:00 Doc tor Unassigned, [place] [facility] COMP. METABOLIC PANEL (70326) 2023-04-30 15:43:00 Annetta Whitlock [facility] CBC WITH DIFF 2023-04-30 15:43:00 Annetta Whitlock [facility] COMP. METABOLIC PANEL (71825) 2022-11-13 18:54:00 Annetta Whitlock [facility] CBC WITH DIFF 2022-11-13 18:54:00 Annetta Whitlock [facility] ASSIGNMENT OF BENEFITS 2022-11-13 17:58:12 Docto r Unassigned, [place] [facility] CBC WITH DIFF 2021-09-10 10:00:00 [facility] HB ABO GROUPING 2021-09-09 11:00:00 George Monreal [facility] RHO (D) IMMUNE GLOBULIN 2021-09-09 11:00:00 George Monreal [facility] CONSENT/REFUSAL FOR DIAGNOSIS AND TREATMENT 2021-09-08 16:30:00 Doctor Unassigned, [place] [facility] ASSIGNMENT OF BENEFITS 2021-09-08 16:26:56 Docto r Unassigned, [place] [facility] NOTICE OF PRIVACY PRACTICES 2021-09-08 16:26:44 Doctor Unassigned, [place] [facility] CONSENT/REFUSAL FOR DIAGNOSIS AND TREATMENT 2021-09-08 16:26:30 Doctor Unassigned, [place] [facility] ASSIGNMENT OF BENEFITS 2021-09-08 16:26:17 Docto r Unassigned, [place] [facility] PHYSICIAN ORDERS 2021-09-08 05:01:00 Doctor Unas signed, [place] [facility] POCT URINALYSIS W/O SPECIFIC GRAVITY 2021-09-05 00:00:00 George Monreal [facility] DSU PRE-OP 2021-08-27 05:01:00 Doctor Unass igned, [place] [facility] POCT URINALYSIS W/O SPECIFIC GRAVITY 2021-08-27 00:00:00 Adum, Rebecca Snider [facility] POCT URINALYSIS W/O SPECIFIC GRAVITY 2021-08-07 00:00:00 Adum, Rebecca Snider [facility] POCT URINALYSIS W/O SPECIFIC GRAVITY 2021-07-22 00:00:00 Adum, Rebecca Snider [facility] LACTATE DEHYDROGENASE 2021-07-10 17:36:00 Adum, Rebecca Snider [facility] URIC ACID 2021-07-10 17:36:00 Adum, [facility] COMP. METABOLIC PANEL (36640) 2021-07-10 17:36:00 Adum, Rebecca Snider [facility] ADC CLC OR LCC ONLY - WET PREP 2021-07-10 17:36:00 AdRebecca marques [facility] NOTICE OF PRIVACY PRACTICES 2021-07-10 15:43:53 Doctor Unassigned, [place] [facility] CONSENT/REFUSAL FOR DIAGNOSIS AND TREATMENT 2021-07-10 15:43:43 Doctor Unassigned, [place] [facility] ASSIGNMENT OF BENEFITS 2021-07-10 15:43:32 Docto r Unassigned, [place] [facility] POCT URINALYSIS W/O SPECIFIC GRAVITY 2021-07-04 22:00:00 AdumRebecca [facility] SCANNED LAB RESULTS 2021-06-17 05:01:00 Doctor Viraj alcantar, [place] [facility] Encounters Start Date/Time End Date/Time Encounter Type Admission Type Attending [facility] Care Facility Care Department Encounter ID Source 2021-07-10 13:45:42 Outpatient P RUST ARLIN [id number] [facility] 2020-12-29 23:25:03 Emergency [facility] [id number] [facility] 2023-11-12 08:30:00 2023-11-12 08:30:00 Outpatient R ANNETTA WHITLOCK [facility] [id number] [facility] 2023-05-18 00:00:00 2023-05-18 00:00:00 [facility] 1.2.840.114 350.1.13.10 4.2.7.2.686 [id number] [facility] 2023-05-09 00:00:00 2023-05-09 00:00:00 [facility] 1.2.840.114 350.1.13.10 4.2.7.2.686 [id number] [facility] 2023-05-07 00:00:00 2023-05-07 00:00:00 Orders Only Doctor Unassigned, [place] [facility] 1.2840.114 350.1.13.10 4.2.7.2.686 [id number] [facility] 2023-04-30 10:15:00 2023-04-30 10:30:00 Rd Scientist Visit Lab, Govind - [facility] MEDICAL OFFICE BUILDING 1.2.840.114 350.1.13.10 4.2.7.2.686 [id number] [facility] 2023-04-30 09:00:00 2023-04-30 09:21:22 Outpatient R ANNETTA WHITLOCK [facility] [id number] [facility] 2023-04-30 09:00:00 2023-04-30 09:21:22 Office Visit Kamlesh [facility] LAILA?[facility] BUILD[facility] 1.2.840.114 350.1.13.10 4.2.7.2.686 [id number] [facility] 2023-04-30 00:00:00 2023-04-30 00:00:00 Patient Secure Msg Kamlesh [facility] LALIA?[facility] MEDICAL OFFICE BUILDING 1.2.840.114 350.1.13.10 4.2.7.2.686 [id number] [facility] 2023-04-13 00:00:00 2023-04-13 00:00:00 Telephone Kamlesh [facility] LAILA?[facility] 1.2.840.114 350.1.13.10 4.2.7.2.686 [id number] [facility] 2023-04-06 08:00:00 2023-04-06 08:00:00 Outpatient R ANNETTA WHITLOCK [facility] [id number] [facility] 2023-03-31 11:15:00 2023-03-31 11:38:54 Outpatient R JULEE REDDY [facility] [id number] [facility] 2023-03-31 11:15:00 2023-03-31 11:38:54 [facility] 1.0.114 350.1.13.10 4.2.7.2.686 [id number] [facility] 2023-03-31 00:00:00 2023-03-31 00:00:00 Letter (Out) Julee Reddy J[facility] 1.2114 350.1.13.10 4.2.7.2.686 [id number] [facility] 2022-12-07 15:00:00 2022-12-07 15:00:00 Outpatient R ANNETTA WHITLOCK [facility] [id number] [facility] 2022-11-24 00:00:00 2022-11-24 00:00:00 Patient Secure Msg Kamlesh [facility] LAILA?[facility] 1.284.114 350.1.13.10 4.2.7.2.686 [id number] [facility] 2022-11-16 00:00:00 2022-11-16 00:00:00 Telephone Pcp, Patient Does Not Have A [facility] LAILA?[facility] 1.284114 350.1.13.10 4.2.7.2.686 [id number] [facility] 2022-11-16 00:00:00 2022-11-16 00:00:00 [facility] 1.284.114 350.1.13.10 4.2.7.2.686 [id number] [facility] 2022-11-16 00:00:00 2022-11-16 00:00:00 Patient Secure [facility] 1.2840.114 350.1.13.10 4.2.7.2.686 [id number] [facility] 2022-11-14 00:00:00 2022-11-14 00:00:00 Patient Secure Msg Doctor Unassigned, [place] [facility] 1..114 350.1.13.10 4.2.7.2.686 [id number] [facility] 2022-11-13 14:00:00 2022-11-13 14:15:00 Rd Scientist Visit Lab, Govind Saul [facility] 1.84.114 350.1.13.10 4.2.7.2.686 [id number] [facility] 2022-11-13 13:00:00 2022-11-13 13:43:19 [facility] [id number] 2022-11-13 13:00:00 2022-11-13 13:43:19 [facility] 1.84.114 350.1.13.10 4.2.7.2.686 [id number] [facility] 2022-11-13 00:00:00 2022-11-13 00:00:00 Orders Only Doctor Unassigned, [place] [facility] 1.2840.114 350.1.13.10 4.2.7.2.686 [id number] [facility] 2022-11-13 00:00:00 2022-11-13 00:00:00 [facility] 1.2.840.114 350.1.13.10 4.2.7.2.686 [id number] [facility] 2022-11-13 00:00:00 2022-11-13 00:00:00 Telephone [facility] 1.2.840.114 350.1.13.10 4.2.7.2.686 [id number] [facility] 2022-11-13 00:00:00 2022-11-13 00:00:00 Refill [facility] 1.2.840.114 350.1.13.10 4.2.7.2.686 [id number] [facility] 2022-11-13 00:00:00 2022-11-13 00:00:00 Tele[facility] LA[facility] 1.2.840.114 350.1.13.10 4.2.7.2.686 [id number] [facility] 2022-09-03 13:00:00 2022-09-03 13:00:00 Outpatient R ANNETTA WHITLOCK [facility] [id number] [facility] 2022-07-01 15:00:00 2022-07-01 15:00:00 Outpatient R REBECCA CURIEL [facility] [id number] [facility] 2022-04-28 08:45:00 2022-04-28 09:24:05 Outpatient R REBECCA CURIEL [facility] [id number] [facility] 2022-04-28 08:45:00 2022-04-28 09:24:05 Office Visit Adum, Rebecca [facility] 1..114 350.1.13.10 4.2.7.2.686 [id number] [facility] 2022-04-22 00:00:00 2022-04-22 00:00:00 Telephone Adum, Rebecca Snider [facility] 1.840.114 350.1.13.10 4.2.7.2.686 [id number] [facility] 2022-04-09 13:00:00 2022-04-09 13:00:00 Outpatient ANNETTA HERNANDEZ [facility] [id number] [facility] 2022-04-03 10:00:00 2022-04-03 10:00:00 Outpatient JOSIE HERNANDEZA [facility] [id number] [facility] 2021-11-10 13:00:00 2021-11-10 13:00:00 Outpatient ANNETTA HERNANDEZ [facility] [id number] [facility] 2021-10-29 16:00:00 2021-10-29 16:35:52 Outpatient R MAYNOR REBECCA [facility] [id number] [facility] 2021-10-29 16:00:00 2021-10-29 16:35:52 Routine Visit Adshelli Rebecca Snider [facility] 1..114 350.1.13.10 4.2.7.2.686 [id number] [facility] 2021-10-22 15:45:00 2021-10-22 15:45:00 Outpatient R MAYNOR REBECCA [facility] [id number] [facility] 2021-10-02 00:00:00 2021-10-02 00:00:00 Telephone Adum, Rebecca Snider [facility] 1.840.114 350.1.13.10 4.2.7.2.686 [id number] [facility] 2021-10-01 13:15:00 2021-10-01 13:59:30 Outpatient R CEDRICREBECCA MARQUES [facility] [id number] [facility] 2021-10-01 13:15:00 2021-10-01 13:59:30 Routine Visit CedricshelliRebecca [facility] 1..114 350.1.13.10 4.2.7.2.686 [id number] [facility] 2021-09-17 00:00:00 2021-09-17 00:00:00 Telephone George Monreal [facility] BUILDING 1..114 350.1.13.10 4.2.7.2.686 [id number] [facility] 2021-09-09 03:58:00 2021-09-10 15:38:00 Inpatient P GEORGE MONREAL [facility] [id number] [facility] 2021-09-09 03:58:00 2021-09-10 15:38:00 Hospital Encounter George Monreal [facility] 1.2.114 350.1.13.10 4.2.7.2.686 [id number] [facility] 2021-09-08 11:15:00 2021-09-08 11:30:00 Laboratory Only Only, Adc Test George Monreal [facility] 1.2.114 350.1.13.10 4.2.7.2.686 [id number] [facility] 2021-09-08 11:00:00 2021-09-08 11:15:00 Rd Scientist Visit Pob, Adc Lab Main [facility] 1.2.114 350.1.13.10 4.2.7.2.686 [id number] [facility] 2021-09-08 11:00:00 2021-09-08 11:00:00 Outpatient R GEORGE MONREAL [facility] [id number] [facility] 2021-09-05 14:00:00 2021-09-05 14:33:15 Out[facility] [id number] [facility] 2021-09-05 14:00:00 2021-09-05 14:33:15 Routine Visit George Monreal Cheryal [facility] 1..840.114 350.1.13.10 4.2.7.2.686 [id number] [facility] 2021-09-03 15:45:00 2021-09-03 15:45:00 Outpatient R REBECCA CURIEL [facility] [id number] [facility] 2021-08-27 15:30:00 2021-08-27 16:46:41 Routine Visit Rebecca Curiel [facility] 1..840.114 350.1.13.10 4.2.7.2.686 [id number] [facility] 2021-08-27 15:30:00 2021-08-27 16:46:41 Outpatient R REBECCA CURIEL [facility] [id number] [facility] 2021-08-27 00:00:00 2021-08-27 00:00:00 Orders Only Doctor Unassigned, [place] [facility] 1..840.114 350.1.13.10 4.2.7.2.686 [id number] [facility] 2021-08-18 11:00:00 2021-08-18 11:30:00 Rd Scientist Visit Ultrasound, Mark Anthony Baker [facility]UST [employer] [facility] 1..840.114 350.1.13.10 4.2.7.2.686 [id number] [facility] 2021-08-18 11:00:00 2021-08-18 11:00:00 Outpatient P CARLIN CARLOS EDUARDO MARK ANTHOYN Wei [facility] [id number] [facility] 2021-08-07 16:00:00 2021-08-07 16:47:57 Outpatient R ADUM, [facility] [id number] [facility] 2021-08-07 16:00:00 2021-08-07 16:47:57 Routine Visit Adshelli [facility] 1..840.114 350.1.13.10 4.2.7.2.686 [id number] [facility] 2021-07-22 16:15:00 2021-07-22 16:27:19 Outpatient R ADUM [facility] [id number] [facility] 2021-07-22 16:15:00 2021-07-22 16:27:19 Routine Visit Adshelli, [facility] 1..840.114 350.1.13.10 4.2.7.2.686 [id number] [facility] 2021-07-17 16:00:00 2021-07-17 16:00:00 Outpatient R ADUM, [facility] [id number] [facility] 2021-07-10 10:37:00 2021-07-10 13:45:00 Outpatient P ADUM [facility] [id number] [facility] 2021-07-10 10:37:00 2021-07-10 13:45:00 Hospital Encounter Monreal, George Cam Adum, [facility] 1.840.114 350.1.13.10 4.2.7.2.686 [id number] [facility] 2021-07-10 00:00:00 2021-07-10 00:00:00 Telephone Adum, Rebecca [facility] 1.2.840.114 350.1.13.10 4.2.7.2.686 [id number] [facility] 2021-07-04 16:15:00 2021-07-04 17:25:24 Outpatient R ADUM, REBECCA [facility] [id number] [facility] 2021-07-04 16:15:00 2021-07-04 17:25:24 Routine Visit Adum, [facility] 1.2.840.114 350.1.13.10 4.2.7.2.686 [id number] [facility] 2021-07-04 16:15:00 2021-07-04 16:15:00 Outpatient R ADUM, REBECCA [facility] [id number] [facility] 2021-07-04 00:00:00 2021-07-04 00:00:00 Telephone Adum, [facility] 1.2.840.114 350.1.13.10 4.2.7.2.686 [id number] [facility] 2021-06-26 00:00:00 2021-06-26 00:00:00 Telephone Adum, Rebecca Snider [facility] BU[facility] 1.2.840.114 350.1.13.10 4.2.7.2.686 [id number] [facility] 2021-06-24 00:00:00 2021-06-24 00:00:00 Telephone Adum, Rebecca Snider [facility] 1.2.840.114 350.1.13.10 4.2.7.2.686 [id number] [facility] 2021-06-20 15:45:00 2021-06-20 16:58:18 Outpatient R ADREBECCA MARQUES [facility] [id number] [facility] 2021-06-20 15:45:00 2021-06-20 16:58:18 Routine Visit Adum, Rebecca Snider [facility] BUILD[facility] 1.2.840.114 350.1.13.10 4.2.7.2.686 [id number] [facility] 2021-06-20 00:00:00 2021-06-20 00:00:00 Case Management Adum, Rebecca Snider [facility] 1.2.840.114 350.1.13.10 4.2.7.2.686 [id number] [facility] 2021-06-17 11:30:00 2021-06-17 11:45:00 Rd Scientist Visit Pob, Adc Lab Main Adum, Rebecca Snider [facility] BUILD[facility] 1.2.840.114 350.1.13.10 4.2.7.2.686 [id number] [facility] 2021-06-17 09:45:00 2021-06-17 10:31:22 Outpatient P MARK ANTHONY NEW [facility] [id number] [facility] 2021-06-17 09:45:00 2021-06-17 10:31:22 Rd Scientist Visit Ultrasound, Adc Mfm Mark Anthony New [facility] BUILDING 1.2.840.114 350.1.13.10 4.2.7.2.686 [id number] [facility] 2021-06-17 00:00:00 2021-06-17 00:00:00 Telephone Adum, Rebecca Snider [facility] 1..840.114 350.1.13.10 4.2.7.2.686 [id number] [facility] 2021-06-17 00:00:00 2021-06-17 00:00:00 Orders Only Doctor Unassigned, [place] [facility] 1..840.114 350.1.13.10 4.2.7.2.686 [id number] [facility] 2021-05-29 16:00:00 2021-05-29 16:00:00 Outpatient R REBECCA CURIEL [facility] [id number] [facility] 2021-05-14 10:45:00 2021-05-14 11:57:06 Rd Scientist Visit Ultrasound, Ministerio Swan [employer] [facility] 1..840.114 350.1.13.10 4.2.7.2.686 [id number] [facility] 2021-05-14 10:45:00 2021-05-14 10:45:00 Outpatient MINISTERIO LOPEZ [facility] [id number] [facility] 2021-05-06 09:30:00 2021-05-06 09:30:00 Outpatient R REBECCA CURIEL [facility] [id number] [facility] 2021-04-30 15:30:00 2021-04-30 15:35:46 Outpatient R ADSHELLI REBECCA [facility] [id number] [facility] 2021-04-29 16:00:00 2021-04-29 16:00:00 Outpatient R MAYNOR REBECCA [facility] [id number] [facility] 2021-04-24 16:00:00 2021-04-24 16:00:00 Outpatient R MAYNOR [facility] [id number] [facility] 2021-04-14 00:00:2021-04-14 00:00:00 Telephone Adum, Rebecca Snider [facility] 1.2.840.114 350.1.13.10 4.2.7.2.686 [id number] [facility] 2021-04-09 11:15:00 2021-04-09 11:30:00 Rd Scientist Visit Pob, Adc Lab Main Adum, [facility] 1.2840.114 350.1.13.10 4.2.7.2.686 [id number] [facility] 2021-04-09 11:15:00 2021-04-09 11:15:00 Outpatient R MAYNOR [facility] [id number] [facility] 2021-04-09 11:15:00 2021-04-09 11:15:00 Outpatient R MAYNOR [facility] [id number] [facility] 2021-04-09 00:00:00 2021-04-09 00:00:00 Orders Only Doctor Unassigned, [place] [facility] 1.2840.114 350.1.13.10 4.2.7.2.686 [id number] 009 [id number] [facility] 2021-04-09 00:00:00 2021-04-09 00:00:00 Case Management George Mnoreal [facility] 1.2840.114 350.1.13.10 4.2.7.2.686 [id number] 134 [id number] [facility] 2021-03-27 17:00:00 2021-03-27 17:15:00 Rd Scientist Visit Pob, Adc Lab Main Adum, [facility] 1.2.840.114 350.1.13.10 4.2.7.2.686 [id number] 353 [id number] [facility] 2021-03-27 17:00:00 2021-03-27 17:00:00 Outpatient R ADUM, REBECCA [facility] [id number] [facility] 2021-03-27 16:00:00 2021-03-27 16:34:58 Outpatient R ADUM, REBECCA [facility] [id number] [facility] 2021-03-27 16:00:00 2021-03-27 16:34:58 Outpatient R ADUM, REBECCA [facility] [id number] [facility] 2021-03-27 16:00:00 2021-03-27 16:34:58 Routine Visit AdumRebecca [facility] 1.2.840.114 350.1.13.10 4.2.7.2.686 [id number] 134 [id number] [facility] 2021-03-27 16:00:00 2021-03-27 16:00:00 Outpatient R ADUM, REBECCA [facility] [id number] [facility] 2021-03-03 12:00:00 2021-03-03 12:00:00 Outpatient R [facility] [id number] [facility] 2021-03-03 12:00:00 2021-03-03 12:00:00 Outpatient R ADUMREBECCA [facility] [id number] [facility] 2021-02-27 16:00:00 2021-02-27 17:18:20 Outpatient R ADUM, REBECCA [facility] [id number] [facility] 2021-02-27 16:00:00 2021-02-27 17:18:20 Routine Visit AdumRebecca [facility] 1.2.840.114 350.1.13.10 4.2.7.2.686 [id number] 134 [id number] [facility] 2021-02-27 16:00:00 2021-02-27 16:00:00 Outpatient R ADUM, REBECCA [facility] [id number] [facility] 2021-02-25 00:00:00 2021-02-25 00:00:00 Telephone Pcp, Patient Does Not Have A [facility] 1.2.840.114 350.1.13.10 4.2.7.2.686 [id number] 134 [id number] [facility] 2021-02-25 00:00:00 2021-02-25 00:00:00 Orders Only Doctor Unassigned, [place] [facility] 1.2.840.114 350.1.13.10 4.2.7.2.686 [id number] [id number] [facility] 2021-02-07 00:00:00 2021-02-07 00:00:00 Patient Secure Msg AdRebecca marques Tylor [facility] 1.2.840.114 350.1.13.10 4.2.7.2.686 [id number] 134 [id number] [facility] 2021-02-07 00:00:00 2021-02-07 00:00:00 Patient Secure Msg AdRebecca marques [facility] 1.2.840.114 350.1.13.10 4.2.7.2.686 [id number] 134 [id number] [facility] 2021-02-03 13:36:33 2021-02-03 14:04:22 Routine Visit George Monreal [facility] 1.2.840.114 350.1.13.10 4.2.7.2.686 [id number] 134 [id number] [facility] 2021-02-03 13:30:00 2021-02-03 14:04:22 Outpatient R GEORGE MONREAL [facility] [id number] [facility] 2021-02-03 00:00:00 2021-02-03 00:00:00 Telephone Adum, Rebecca Snider [facility] 1.2.840.114 350.1.13.10 4.2.7.2.686 [id number] 134 [id number] [facility] 2021-01-31 00:00:00 2021-01-31 00:00:00 Case Management Adum, Rebecca Snider [facility] 1.2.840.114 350.1.13.10 4.2.7.2.686 [id number] 134 [id number] [facility] 2021-01-31 00:00:00 2021-01-31 00:00:00 Telephone Adum, Rebecca Snider [facility] 1.2.840.114 350.1.13.10 4.2.7.2.686 [id number] 134 [id number] [facility] 2021-01-30 13:45:39 2021-01-30 15:16:39 Initial Visit Adum, Rebecca Snider [facility] 1.2.840.114 350.1.13.10 4.2.7.2.686 [id number] 134 [id number] [facility] 2021-01-30 13:45:00 2021-01-30 15:16:39 Outpatient R ADUM, REBECCA [facility] [id number] [facility] 2021-01-30 13:45:00 2021-01-30 15:16:39 Outpatient R ADUM, REBECCA [facility] [id number] [facility] 2021-01-30 13:45:00 2021-01-30 15:16:39 Initial Visit Adum, Rebecca Snider [facility] 1.2.840.114 350.1.13.10 4.2.7.2.686 [id number] 134 [id number] [facility] 2021-01-30 00:00:00 2021-01-30 00:00:00 Telephone Adum, Rebecca Snider [facility] 1.2.840.114 350.1.13.10 4.2.7.2.686 [id number] 134 [id number] [facility] 2021-01-29 16:34:17 2021-01-29 23:59:00 Outpatient R ADUM, REBECCA [facility] [id number] [facility] 2021-01-29 16:30:00 2021-01-29 23:59:00 Hospital Encounter Adum, Rebecca Snider [facility] 1.2.840.114 350.1.13.10 4.2.7.2.686 [id number] [facility] 2021-01-21 00:00:00 2021-01-21 00:00:00 Patient Secure Msg Doctor Unassigned, [place] [facility] 1.2.840.114 350.1.13.10 4.2.7.2.686 [id number] 134 [id number] [facility] 2021-01-21 00:00:00 2021-01-21 00:00:00 Patient Secure Msg Adum, Rebecca Snider [facility] 1.2.840.114 350.1.13.10 4.2.7.2.686 [id number] 134 [id number] [facility] 2021-01-20 00:00:00 2021-01-20 00:00:00 Telephone Adum, Rebecca Snider [facility] 1.2.840.114 350.1.13.10 4.2.7.2.686 [id number] 134 [id number] [facility] 2021-01-18 09:13:56 2021-01-18 09:28:56 Rd Scientist Visit Pob, Adc Lab Main Adum, Rebecca Snider [facility] 1.2.840.114 350.1.13.10 4.2.7.2.686 [id number] [facility] 2021-01-18 09:00:00 2021-01-18 09:00:00 Outpatient R [facility] [id number] [facility] 2021-01-18 09:00:00 2021-01-18 09:00:00 Outpatient R ADUM, [facility] [id number] [facility] 2021-01-16 14:00:00 2021-01-16 14:00:00 Outpatient R ADUM, REBECCA [facility] [id number] [facility] 2021-01-16 14:00:00 2021-01-16 14:00:00 Outpatient R ADUM, [facility] [id number] [facility] 2021-01-16 10:03:00 2021-01-16 12:46:00 Emergency X Poornima LEIGH [facility] [id number] [facility] 2021-01-16 10:03:00 2021-01-16 12:46:00 Emergency AnnyPoornima vance [facility] 1..840.114 350.1.13.10 4.2.7.2.686 [id number] [facility] 2021-01-15 14:30:00 2021-01-15 15:31:36 Outpatient R MAYNOR REBECCA [facility] [id number] [facility] 2021-01-15 14:30:00 2021-01-15 15:31:36 Outpatient R ADREBECCA MARQUES [facility] [id number] [facility] 2021-01-15 14:17:38 2021-01-15 15:31:36 Office Visit Rebecca Cur[facility] 1..840.114 350.1.13.10 4.2.7.2.686 [id number] 134 [id number] [facility] 2021-01-14 11:11:00 2021-01-14 15:34:00 Emergency X NASIR GARCIA [facility] [id number] [facility] 2021-01-14 11:11:00 2021-01-14 15:34:00 Emergency Nasir Garcia [facility] 1..114 350.1.13.10 4.2.7.2.686 [id number] [facility] 2021-01-14 11:11:00 2021-01-14 15:34:00 Emergency X NASIR GARCIA [facility] [id number] [facility] 2021-01-14 00:00:00 2021-01-14 00:00:00 Telephone George Monreal [facility] 1.114 350.1.13.10 4.2.7.2.686 [id number] 134 [id number] [facility] 2020-10-13 16:00:00 2020-10-13 16:00:00 Outpatient R [facility] [id number] [facility] 2020-10-06 12:00:00 2020-10-06 12:00:00 Outpatient R ZIA SULTANATANY [facility] [id number] [facility] 2020-10-05 12:00:00 2020-10-05 12:00:00 Outpatient R LYNN SULTANA [facility] [id number] [facility] 2020-08-04 14:11:00 2020-08-04 18:11:00 Emergency Janet Wills [facility] 1..114 350.1.13.10 4.2.7.2.686 [id number] 2020-04-12 00:00:00 2020-04-12 00:00:00 Telephone Esther Mclain [facility] [employer] [facility] 1..114 350.1.13.10 4.2.7.2.686 [id number] 2020-04-11 14:30:00 2020-04-11 14:30:00 Outpatient ISIDRA GANN [facility] [id number] [facility] 2020-04-10 11:20:00 2020-04-10 11:20:00 Outpatient Elba [facility] [id number] [facility] 2014-09-27 14:00:00 2014-09-27 14:00:00 Outpatient TRACEY CONCEPCION [facility] [id number] [facility] Results Test Description Test Time Test Comments Results Result Co mments Source [facility] (46072)2023-04-30 20:15:31* Test Item Value Reference Range Interpretation Comme nts NA (test code = 5702067247) 136 mmol/L 135-145 K (test code = 5923750790) 4.6 mmol/L 3.5-5.0 CL (test code = 1929769552) 107 mmol/L 98-108 CO2 TOTAL (test code = 5275505654) 26 mmol/L 23-31 AGAP (test code = 0506470112) 3 2-16 BUN (test code = 7285108998) 16 mg/dL 7-23 GLUCOSE (test code = 8861146550) 80 mg/dL 70-110 CREATININE (test code = 2160-0) 0.63 mg/dL 0.50-1.04 TOTAL BILI (test code = 0626437647) 0.9 mg/dL 0.1-1.1 CALCIUM (test code = 4929410991) 8.6 mg/dL 8.6-10.6 T PROTEIN (test code = 4978102641) 7.3 g/dL 6.3-8.2 ALBUMIN (test code = 2894749011) 3.7 g/dL 3.5-5.0 ALK PHOS (test code = 9287224291) 121 U/L 34-122 ALTv (test code = 1742-6) 12 U/L 5-35 AST(SGOT) (test code = 4053715009) 25 U/L 13-40 eGFR (test code = 54316-8) 123.3 mL/min/1.73m2 CKD-EPI eGFR (20 21). Assuming creatinine has been stable day-to-day for at least three months, the eGFR indicates Category G1 (>= 90 mL/min/1.73 m2) [facility] IMMUNE HOFMSFRV5849-48-99 20:47:05* Test Item Value Reference Range Interpretation Comme nts RHIG CANDIDATE? (test code = 5055) No- see comment Patient is not a candidate for RhIg- Patient is Rh Positive.Performed at [facility] Blood [address] [place] [address] Free: [phone] No. [id number] [facility] and Screen - ONCE Haaqosz6453-06-54 12:58:30* Test Item Value Reference Range Interpretation Comme [facility] ABO & RH (test code = 20) O Positive Performed at [facility] Laboratory [facility] Blood [place] [address]Toll Free: [phone] No. [id number] IAT (test code = 1185) Negative Performed at [facility] Laboratory [facility] Blood [address] [place], [place] [address]Toll Free: [phone] No. [id number] [facility] W/O SPECIFIC DOIHRFT9348-17-98 19:11:00* Test Item Value Reference Range Interpretation Comme nts POCT PH U (test code = 3254) N/A 5-8 POCT U LEUK EST (test code = 3263) N/A Negative - Negative POCT U NIT (test code = 3262) N/A Negative - Negati ve POCT U PROT (test code = 3259) Negative Negative - Negat levy POCT U GLU (test code = 3256) Negative Negative - Negati ve POCT U KETONE (test code = 3258) N/A Negative - Neg ative POCT U BLD (test code = 3257) N/A Negative - Negati ve [facility]/O SPECIFIC [id number] 21:04:00* Test Item Value Reference Range Interpretation Comme nts POCT PH U (test code = 3254) n/a 5-8 POCT U LEUK EST (test code = 3263) n/a Negative - Negative POCT U NIT (test code = 3262) n/a Negative - Negati ve POCT U PROT (test code = 3259) negative Negative - Negat levy POCT U GLU (test code = 3256) negative Negative - Negati ve POCT U KETONE (test code = 3258) n/a Negative - Neg ative POCT U BLD (test code = 3257) n/a Negative - Negati ve [facility] URINALYSIS W/O SPECIFIC [id number] 21:30:00* Test Item Value Reference Range Interpretation Comme nts POCT PH U (test code = 3254) n/a 5-8 POCT U LEUK EST (test code = 3263) n/a Negative - N egative POCT U NIT (test code = 3262) n/a Negative - Negati ve POCT U PROT (test code = 3259) neg Negative - Negat levy POCT U GLU (test code = 3256) neg Negative - Negati ve POCT U KETONE (test code = 3258) n/a Negative - Neg ative POCT U BLD (test code = 3257) n/a Negative - Negati ve [facility] URINALYSIS W/O SPECIFIC LDLTBGM8100-26-40 21:04:00* Test Item Value Reference Range Interpretation Comme nts POCT PH U (test code = 3254) n/a 5-8 POCT U LEUK EST (test code = 3263) n/a Negative - Negative POCT U NIT (test code = 3262) n/a Negative - Negati ve POCT U PROT (test code = 3259) Negative Negative - Negat levy POCT U GLU (test code = 3256) normal Negative - Negati ve POCT U KETONE (test code = 3258) n/a Negative - Neg ative POCT U BLD (test code = 3257) n/a Negative - Negati ve [facility]. METABOLIC PANEL (05754)2021-07-10 18:15:19* Test Item Value Reference Range Interpretation Comme nts NA (test code = 4222911549) 134 mmol/L 135-145 L K (test code = 7969397957) 4.0 mmol/L 3.5-5.0 CL (test code = 0592078019) 104 mmol/L 98-108 CO2 TOTAL (test code = 0549477483) 23 mmol/L 23-31 AGAP (test code = 2633315931) 2-16 BUN (test code = 7277556781) 8 mg/dL 7-23 GLUCOSE (test code = 8296060123) 76 mg/dL 70-110 CREATININE (test code = 4090777266) 0.56 mg/dL 0.50-1.04 TOTAL BILI (test code = 1590099494) 1.3 mg/dL 0.1-1.1 H CALCIUM (test code = 0456371419) 8.8 mg/dL 8.6-10.6 T PROTEIN (test code = 7972797622) 6.9 g/dL 6.3-8.2 ALBUMIN (test code = 9658506647) 3.7 g/dL 3.5-5.0 ALK PHOS (test code = 0821902279) 122 U/L 34-122 ALTv (test code = 1742-6) 15 U/L 5-35 AST(SGOT) (test code = 5706052376) 25 U/L 13-40 eGFR (test code = 5300156066) mL/min/1.73m2 ELLYN (test code = ELLYN) Association of [...] or abnormalities in imaging tests). Lab Interpretation (test code = 11591-9) Abnormal [facility] UBQA0519-12-13 18:15:19* Test Item Value Reference Range Interpretation Comme [facility] URIC ACID (test code = 4895216129) 4.0 mg/dL 2.9-6.0 Lab Interpretation (test cod e = 10959-9) Normal [facility] HospitalLACTATE CHIWXHZJIANRE8914-99-16 18:13:18* Test Item Value Reference Range Interpretation Comme nts LDH (test code = 8116685352) 325 U/L 300-600 Lab Interpretation (test cod e = 34940-3) Normal [facility] W/O SPECIFIC QCUFWTL7869-23-30 22:00:00* Test Item Value Reference Range Interpretation Comme nts POCT PH U (test code = 3254) n/a 5-8 POCT U LEUK EST (test code = 3263) n/a Negative - Negative POCT U NIT (test code = 3262) n/a Negative - Negati ve POCT U PROT (test code = 3259) trace Negative - Negat levy POCT U GLU (test code = 3256) negative Negative - Negati ve POCT U KETONE (test code = 3258) n/a Negative - Neg ative POCT U BLD (test code = 3257) n/a Negative - Negati ve [facility] Notes Date/Time Note Provider Source 2023-05-18 17:52:39 px7P+1odqksagzbuBjtW bH8VpOFiB6galG V7EFwMc5e4LpI9HCtPcrx2CWClRY3i3255 -03-19T17:52:39 sent 46362-4Wvvzlmewd encounter MruyZX5175-45-47K76:54:07Telephone encounter NoteTXT1.2.840.332727.1.13.104.2.7 .2.943155|8214612669TKCvxlyzfei for patient vrpa24848-4ZlhuPBPGTPCMLKCVoldwvpu d C-CDA narrative [id number] 44WPTZOKEMTMRDMWZBXISKRI8529-30-41 T17:54:071.2.840.174589.1.72.3.15| 1.2.840.079119.1.13.104.2.7.2.7278 79_[id number] [facility] 2023-05-03 18:09:18 En3Trpqnf3m08vO3qrAP 4kxiDEXGGfUwst GHCMxK/OTznqlTjaIv7Iwubip7DSaK4095 -03-04T18:09:18 Yes, both. 48447-1Nkxkcigdk encounter ZujaIT3618-58-26E70:09:28Telephone encounter NoteTXT1.2.840.510008.1.13.104.2.7 .2.539612|6523007733EZEbkftcgod for patient paec28803-0DbsnCFVWOQAFWYWWisdtieb d C-CDA narrative [employer]TXTX[address] 51SBRRLPIOZMTCHJVNVHRBAE3816-08-04 T18:09:281.2.840.514714.1.72.3.15| 1.2.840.129041.1.13.104.2.7.2.7278 79_[id number] [facility] 2023-05-03 09:58:33 xCYoCJcuTKT23oDXYQ9z G9AuuuojvKrasj lJcWHFJbvbCsz/hgBrLtjrRUHCEWRb0858 -03-04T09:58:33 Please review and advise 95347-3Fylvtwojw encounter TfjpZR1406-77-62P13:58:56Telephone encounter NoteTXT1.2.840.200202.1.13.104.2.7 .2.142318|2589662359IEXcqczhcrn for patient suql68014-1BgawGJYRAUEUZBPZlviprhc d C-CDA narrative whse289218230Snklpjcx Y Ruiz MA[address] BbbxMbuawfkwwBtzudgllfMPBA61490259 80RBKBZDJVMAIICLUQKSLSGE8908-47-65 T09:58:561.2.840.872615.1.72.3.15| 1.2.840.378030.1.13.104.2.7.2.7278 79_[id number] Aissatou Carey MA [facility] 2023-04-30 10:15:00 6CL2oElYss5E7eGg3lS5 PR0iR4e8gBOrMm ZzNLtTFJPpteTaTMxI1rPYonROR2Ey7086 -03-01T10:15:00 Images from the original note were not included.Venipuncture collection performed by clean technique on the right anticubitus. Total of 1 attempts were made. Slight pressure and a bandage/dressing were applied to the site(s). The patient experienced no complications. The following specimens were processed according to instructions and sent to [facility] per lab order on 04/30/2023:LT BLUESST 2REDLAV 2PPTDK GREEN (LiHep)DK GREEN (SodH)GRAYDK BLUE (K2)DK BLUE (S)ACDBlood CultureNIPT/NTD 50389-2Huftn OhpqGF6690-25-14W26:44:48Nurse NoteTXT1.2.840.392693.1.13.104.2.7 .2.986724|[id number] for patient wktn24024-7Azfuq NoteLNNARRATIVEFormatted C-CDA narrative [id number] 66FHLWKFIIIJPQTMKIJXTXVS9446-83-48 T09:44:481.2.840.887531.1.72.3.15| 1.2.840.059369.1.13.104.2.7.2.7278 79_[id number] [facility] 2023-04-30 09:00:00 mnADRES0WC0wYtHTvddj i1TQhxv0NhoSbB KBluRdrGIxu5I6Qr6zixUpNbl9wsjL0821 -03-01T09:00:00Addended by: PRUDENCIO WHITLOCK DNP-ANNETTA FERRERA on: 05/18/2023 05:53 PMModules accepted: Orders 04138-8Gwyqsroj WvwudrzxVV7714-99-81K16:53:59Adden dum DocumentTXT1.2.840.087514.1.13.104 .2.7.2.856177|[id number] e for patient wdxw44883-5GdrlHSEFXXUPPTTCplykbyr d C-CDA narrative [id number] 16PXYFHWHZDWJZDPKYRZHRAE1783-50-38 T17:53:591.2.840.627508.1.72.3.15| 1.2.840.214974.1.13.104.2.7.2.7278 79_[id number] [facility] 2023-04-14 09:25:15 cwGoZEQxt/ByNatKquVx iUYgSvKMx6Nrx1 vENICxplcrk3C0HH/7F0bDH4DMTDfv6791 -02-14T09:25:15 Attempted to contact patient. Left private, detailed voicemail informing patient she needs an in clinic follow up to address interest in Zepbound.Sherron Dennis LVN 04/14/2023 9:25 AM 49135-0Mhqdtcelu encounter PmgpEH3277-91-41Q04:26:12Telephone encounter NoteTXT1.2.840.905823.1.13.104.2.7 .2.810261|4260127139ZBTusyeiqcl for patient zlyo96492-5IvtpPDEDRXYJPUQOvllkfdr d C-CDA narrative ysmc993519203Cswflti M Fisher [address] VgatWaiskfnvrCenvmvgeoSVZZ67980751 35KBAJYWYFQPJUYFURSZMDJY7457-17-62 T09:26:121.2.840.355460.1.72.3.15| 1.2.840.498237.1.13.104.2.7.2.7278 79_[id number] Sherron Dennis [facility] 2023-04-13 13:00:09 t2nei8b3bnY33q4fg00h P8viIl4hvRTpqu qKbsh58bRjmdLtARX7uoS0JYx2VgR86349 -02-13T13:00:09 Please follow up in clinic to address 89546-4Skroglhgq encounter CezpYY8076-51-99G04:00:33Telephone encounter NoteTXT1.2.840.035399.1.13.104.2.7 .2.362818|[id number] for patient pnnn12427-9IymbURDONGTGXGXYftxdkcm d C-CDA narrative text[address]TXTX[address] 36QCJACOEVNTTNGONSMMQEQT8064-50-80 T13:00:331.2.840.737068.1.72.3.15| 1.2.840.006373.1.13.104.2.7.2.7278 79_[id number] [facility] 2023-04-13 11:02:53 nxlAQ206XvMls9G8ay9O +21jOGYV53MIlq 7qPGQecsP3IbgXoqpixH2ChUvybOOf1169 -02-13T11:02:53 Please review 11206-5Zdxonzddh encounter DljkZA4553-06-13L21:03:09Telephone encounter NoteTXT1.2.840.197302.1.13.104.2.7 .2.996256|4541610147LYMalyzhacg for patient qzih18104-7BfbvQXSTJBYHWLGWvsutywy d C-CDA narrative cwww439200876Rmwrj J Bunte RNUT[address]TXTX[address] 81DAYHNUOKQBNCRSKCFJTIZB0626-23-69 T11:03:091.2.840.777229.1.72.3.15| 1.2.840.608929.1.13.104.2.7.2.7278 79_[id number] Frannie Connors RN [facility] 2023-04-13 10:56:50 1IiroF406NN6CYh53IXg +b/BgAb1bort8R EH1X0L2HsneMtVVphqdHIICEd1XJQp5590 -02-13T10:56:50 Ximena Zheng is a 27 year old femalePt is requesting to speak to a nurse in regards to semaglutide, weight loss, (WEGOVY) 0.25 mg/0.5 mL PnIj SC injection and issues finding it and is wanting to know if Zep bound can be prescribed. 40967-0Dhthghcin encounter NgkzHB3231-44-05S52:59:15Telephone encounter NoteTXT1.2.840.111979.1.13.104.2.7 .2.826117|[id number] for patient uejn84138-1XqtgNFZALOBCVBWKfrdztkv d C-CDA narrative [id number] J Barnshaw[address] Kt[id number] 70TSOEZORBOATNAHTZHJHKPX8545-75-75 T10:59:151.2.840.902915.1.72.3.15| 1.2.840.657878.1.13.104.2.7.2.7278 [id number] Emi CobianFormerly [facility] 2022-11-16 15:11:34 CAklmtn0Ka4m6Di3wKlh z3zHRI2U9oVMlW nKFlco3jefOK3lIQA4dvP6Txo5IAnT5555 -09-18T15:11:34 Due to costs, this patient is requesting for all new prescriptions be sent to [facility]. Please review and sign if appropriate. 65925-9Wcippycqp encounter XhidVT8166-38-73E03:15:02Telephone encounter NoteTXT1.2.840.289178.1.13.104.2.7 .2.023801|[id number] for patient yfek59935-4EtffLLGYJQMBBT[id number] 00PRCJNZJNIUAIMWOMKMAOJH4788-07-77 T15:15:021.2.840.930939.1.72.3.15| 1.2.840.615615.1.13.104.2.7.2.7278 [id number] [facility] 2022-11-16 12:33:13 nAoaDjb5qNTYg1mNzYeb WBD1lmvHpFOEDo J9pDYp4EMtr7sXxslFmB1M1UKglbkp6614 -09-18T12:33:13 Ximena Zheng is a 27 year old female that is returning the clinic's call. Please note that no message had been left. 22703-8Yzwzkxicp encounter StkoES3396-50-14R70:34:36Telephone encounter NoteTXT1.2.840.886546.1.13.104.2.7 .2.552562|[id number] for patient kxpn80667-3WmnqHJ280408824Eaei [id number] 87MONSQEJIXXQQSFLGEDDVPV4362-15-73 T12:34:361.2.840.698921.1.72.3.15| 1.2.840.266756.1.13.104.2.7.2.7278 [id number] iTki Zarate [facility] 2022-11-13 15:13:17 fwmy/Y+cSgZfDJ5nuPiH T6Xl2dhEQstdp+ vuw5aZZ3lQ0/Tbkz4J/OaFrp50J/t307052022T15:13:17 Outpatient Medication Detail Disp Refills Start End MICAH semaglutide, weight loss, (WEGOVY) 0.25 mg/0.5 mL PnIj SC injection 4 Pen 0 11/13/2022 -- Sig: inject 0.25 mg under the skin weekly. Sent to pharmacy as: Wegovy 0.25 mg/0.5 mL subcutaneous pen injector (semaglutide (weight loss)) Class: eRX Route: Subcutaneous Order: [id number] Date/Time Signed: 11/13/2022 13:28 E-Prescribing Status: Receipt confirmed by pharmacy (11/13/2022 1:29 PM CDT) Associated DiagnosesMorbid obesity with body mass index (BMI) of 40.0 or higher Order Associated Providers Name NPI Ordering Provider Annetta Whitlock FNP [[id number]] [id number] Authorizing Provider Annetta Whitlock FNP [[id number]] [id number] Encounter Supervising Provider Luciano Gardner MD [[id number]] [id number] [id number] [facility] [address]-1Ydytiukcs encounter SnbvPY5161-10-90U71:13:29Telephone encounter NoteTXT1.2.840.357127.1.13.104.2.7 .2.524635|[id number] for patient kvxq17090-7MfxxNA279522076Updcflw M Fisher [address] Zx[id number] 51CBGJZFGXNZHUKRVWJNXDWM3101-71-93 T15:13:291.2.840.637640.1.72.3.15| 1.2.840.083442.1.13.104.2.7.2.7278 [id number] Sherron Dennis LVN [facility] 2022-11-13 15:02:43 0CqEtGwqaHshSSgVfCr7 EB/tAaNrdBSupC eiufa+O8i4De47mJLh3ytC1z4svd7J1270 -09-15T15:02:43 Pt says her [facility] pharmacy on file told her that her insurance will only cover 1 box at a time and it was sent for 2 boxes, please cancel the 2 box quantity and send for 1 box only with no refills because she is also waiting to hear from her [employer] rx plan on what mail order service she needs to use to get future Wegovy refills sent to,pt says she'll call back with this info. 78762-0Uytygzqll encounter [id number]:07:24Telephone encounter NoteTXT1.2.840.087498.1.13.104.2.7 .2.012332|[id number] for patient [id number] M [address] Ac[id number] 79JHAXYTCMXUNCSXCIQSBIHA9691-04-97 T15:07:241.2.840.600055.1.72.3.15| 1.2.840.907896.1.13.104.2.7.2.7278 [id number] Merissa Reza [facility] 2022-11-13 14:00:00 CCufrIN0G/+yBMjeAkRR LqQ/Bt5G45J+1G 6qZRUrukojGcxonUKLCLMtq2SukMXl8603 -09-15T14:00:00 Images from the original note were not included.Venipuncture collection performed by clean technique on the right anticubitus. Total of 1 attempts were made. Slight pressure and a bandage/dressing were applied to the site(s). The patient experienced no complications. The following specimens were processed according to instructions and sent to [facility] per lab order on 11/13/2022 : LT BLUE SST 2 RED LAV 2 PPT DK GREEN (LiHep) DK GREEN (SodH) HAAS DK BLUE (K2) DK BLUE (S) ACD Blood Culture NIPT/NTD 06092-8Gpenv SyycQC5993-74-25Y73:54:47Nurse NoteTXT1.2.840.285870.1.13.104.2.7 .2.928924|[id number] for patient ukwn42452-0Dlowd Note[id number] 09VVUKPURNWIMMGZHOLEUAAB7396-52-08 T13:54:471.2.840.188392.1.72.3.15| 1.2.840.503081.1.13.104.2.7.2.7278 [id number] [facility] 2022-11-13 13:00:00 ul0DwoQZK9vyWZnk8BNa gUCy35h4Np8J6+ 9EQDIP1LDrLSbZ5IMxrWAn7HkZCE172351 -09-15T13:00:00 Addended by: KAMLESH MCNEIL, PRUDENCIO-ANNETTA FERRERA on: 11/15/2022 07:26 PM Modules accepted: Orders [id number] UplekbzqMA5797-28-72U06:26:53Adden dum DocumentTXT1.2.840.871336.1.13.104 .2.7.2.607351|[id number] e for patient xcnp25457-6HmffDJCZLMJRUV[id number] 51KYQHSTQMYCNHKGETRDSWKJ2384-15-32 T19:26:531.2.840.493146.1.72.3.15| 1.2.840.319176.1.13.104.2.7.2.7278 [id number] [facility]"
--- NOTE | 2023-06-03 21:12 | ER ---
Nurse's Notes [facility] Name: Ximena Zheng Age: 27 yrs Sex: Female : 1995 Arrival Date: 06/03/2023 Time: 19:13 Bed IW5 Private MD: Diagnosis: Presentation: 06/02 19:28 Chief complaint: Patient states: chest pain and SOB since Wednesday of last week. rash all ha1 over my body. Coronavirus screen: Vaccine status: Patient reports being unvaccinated. Ebola Screen: No symptoms or risks identified at this time. 19:28 Method Of Arrival: Ambulatory ha1 19:37 Initial Sepsis Screen: Does the patient meet any 2 criteria? No. Patient's initial ha1 sepsis screen is negative. Does the patient have a suspected source of infection? No. Patient's initial sepsis screen is negative. Risk Assessment: Do you want to hurt yourself or someone else? Patient reports no desire to harm self or others. Onset of symptoms was June 03, 2023. 19:37 Acuity: PEDRO 3 ha1 Triage Assessment: 19:39 General: Appears comfortable, Behavior is calm, cooperative. Pain: Complains of pain in ha1 chest Pain radiates to back Pain currently is 5 out of 10 on a pain scale. Quality of pain is described as pressure. Neuro: Level of Consciousness is awake, alert, obeys commands, Oriented to person, place, time, situation. Cardiovascular: Patient's skin is warm and dry. Rhythm is sinus rhythm. Respiratory: Airway is patent Respiratory effort is even, unlabored, Respiratory pattern is regular, symmetrical. Derm: Reports itching. Historical: - Allergies: 19:39 No Known Allergies; ha1 - PMHx: 19:39 Hypertensive disorder; ha1 - PSHx: 19:39 gastric sleeve; ha1 - Immunization history:: Adult Immunizations up to date. - Infectious Disease History:: Denies. - Social history:: Smoking status: Patient reports the use of cigarette tobacco products, denies chronic smoking, but will smoke occasionally. Vital Signs: 19:37 BP 113 / 65; Pulse 88; Resp 18 S; Temp 97.9(T); Pulse Ox 100% on R/A; Weight 137.44 kg; ha1 Height 5 ft. 5 in. ; 19:37 Body Mass Index 50.42 (137.44 kg, 165.1 cm) ha1 ED Course: 19:14 Patient arrived in ED. jj6 19:15 Ministerio Murphy PA is PHCP. cp 19:15 Alban Vargas MD is Attending Physician. cp 19:39 Triage completed. ha1 20:53 Patient's name was called from ER lobby. No response. ha1 21:10 Patient's name was called from ER lobby. No response. cm10 21:11 Patient's name was called from ER lobby. Unable to locate patient. Will disposition as cm10 left without being seen by a provider. Administered Medications: No medications were administered Outcome: 21:11 Patient left the ED. cm10 Signatures: Ministerio Murphy PA PA cp Jeffries, Jennifer jj6 Kasie Delong RN RN ha1 Marcia Epstein RN RN cm10 Corrections: (The following items were deleted from the chart) 19:40 19:39 PMHx: gestational hypertension; ha1 ha1
[2023-06-03 23:49] VITALS: BP 113/65; TEMP 97.9; O2SAT 100
--- NOTE | 2023-06-04 11:54 | EKG ---
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
--- NOTE | 2023-06-04 21:11 | EDPHYS ---
Physician Documentation [facility] Name: Ximena Zheng Age: 27 yrs Sex: Female : 1995 Arrival Date: 06/03/2023 Time: 19:13 Bed IW5 Private MD: ED Physician Alban Vargas HPI: 06/02 20:40 This 27 yrs old Female presents to ER via Ambulatory with complaints of Numbness Of cp Lips, Chest Pain, Rash, High Blood Pressure, Headache, Dizziness. 20:40 Associated signs and symptoms: Pertinent positives: generalized rash. cp 20:40 The patient or guardian reports chest pain that is located primarily in the anterior cp chest wall. Onset: The symptoms/episode began/occurred last week. Historical: - Allergies: 19:39 No Known Allergies; ha1 - PMHx: 19:39 Hypertensive disorder; ha1 - PSHx: 19:39 gastric sleeve; ha1 - Immunization history:: Adult Immunizations up to date. - Infectious Disease History:: Denies. - Social history:: Smoking status: Patient reports the use of cigarette tobacco products, denies chronic smoking, but will smoke occasionally. ROS: 20:40 Constitutional: Negative for body aches, chills, fever, poor PO intake, cp 20:40 Cardiovascular: Positive for chest pain, cp 20:40 Respiratory: Negative for cough, wheezing, 20:40 Skin: Positive for rash, diffusely, 20:40 Neuro: Positive for headache, numbness, cp 20:40 All other systems are negative, cp Exam: 19:40 ECG was reviewed by the Attending Physician. cp 20:40 Head/Face: Normocephalic, atraumatic. cp 20:40 Constitutional: The patient appears in no acute distress, alert, awake, non-diaphoretic, non-toxic, well developed, well nourished, 20:40 Chest/axilla: Inspection: normal, 20:40 Cardiovascular: Rate: normal, Rhythm: regular, 20:40 Respiratory: the patient does not display signs of respiratory distress, Respirations: normal, no use of accessory muscles, no retractions, labored breathing, is not present, 20:40 Abdomen/GI: Exam negative for discomfort, distension, guarding, Inspection: abdomen appears normal, 20:40 Neuro: Orientation: to person, place \T\ time. Mentation: is normal, Vital Signs: 19:37 BP 113 / 65; Pulse 88; Resp 18 S; Temp 97.9(T); Pulse Ox 100% on R/A; Weight 137.44 kg; ha1 Height 5 ft. 5 in. ; 19:37 Body Mass Index 50.42 (137.44 kg, 165.1 cm) [facility] MDM: 19:30 Patient medically screened. 06/02 20:41 Order name: EKG; Complete Time: 20:41 06/02 19:36 Order name: EKG - Nurse/Tech; Complete Time: 19:36 [facility] 06/02 20:41 Order name: Cardiac monitoring 06/02 20:41 Order name: IV Saline Lock 06/02 20:41 Order name: Labs collected and sent 06/02 20:41 Order name: O2 Per Protocol 06/02 20:41 Order name: O2 Sat Monitoring cp EC:40 Rate is 90 beats/min. Rhythm is regular. CA interval is normal. QRS interval is normal. cp QT interval is normal. T waves are Inverted. Interpreted by me. Reviewed by me. Administered Medications: No medications were administered Disposition Summary: 06/03/23 21:11 Eloped Notes: Disposition: after being seen by provider cm10 Reason: unknown cm10 Signatures: Dispatcher [employer] EDMS Ministerio Murphy PA PA cp Kasie Delong RN RN ha1 Marcia Epstein RN RN cm10 Corrections: (The following items were deleted from the chart) 19:40 19:39 PMHx: gestational hypertension; [place] [id number] 20:41 20:41 BASIC METABOLIC PANEL+C.LAB.BRZ ordered. EDMS EDMS 20:41 20:41 CBC+H.LAB.BRZ ordered. EDMS EDMS 20:41 20:41 D-DIMER+COAG.LAB.BRZ ordered. EDMS EDMS 20:41 20:41 HEPATIC FUNCTION+C.LAB.BRZ ordered. EDMS EDMS 20:41 20:41 MAGNESIUM+C.LAB.BRZ ordered. EDMS EDMS 20:41 20:41 PROTIME (+INR)+COAG.LAB.BRZ ordered. EDMS EDMS 20:41 20:41 Troponin High Sensitivity+C.LAB.BRZ ordered. EDMS EDMS 20: 20:41 Urinalysis W/Microscopic+U.LAB.BRZ ordered. EDMS EDMS 20: 20:41 URINE DRUG SCREEN+UC.LAB.BRZ ordered. EDMS EDMS 20: 20:41 Test, Urine+UC.LAB.BRZ ordered. EDMS EDMS
== END 2023-06-03 21:11 | disposition left against medical advice (07) ==
LOC: ER 19:13
DX: R07.89 Other chest pain (principal); R21 Rash and other nonspecific skin eruption; R06.02 Shortness of breath; R51.9 Headache, unspecified; I10 Essential (primary) hypertension; F17.210 Nicotine dependence, cigarettes, uncomplicated
CPT/HCPCS: 93005; 99281